=== PATIENT | female | born 1980 ===

== ENCOUNTER → 2021-07-22 14:33 | Outpatient (BNVA) | payer MEDICARE, MEDICAID, SELFPAY | PROVIDERS: PCP Physician Assistant; Visit Provider Nurse Practitioner Family | DX: Q79.60 Ehlers-Danlos syndrome, unspecified (principal); F11.20 Opioid dependence, uncomplicated; M47.816 Spondylosis without myelopathy or radiculopathy, lumbar region; M46.1 Sacroiliitis, not elsewhere classified | CPT/HCPCS: 99202 ==

== ENCOUNTER → 2021-08-02 12:49 | Outpatient (BNVA) | payer MEDICARE, MEDICAID, SELFPAY | PROVIDERS: PCP Physician Assistant; Visit Provider Nurse Practitioner Family | DX: M46.1 Sacroiliitis, not elsewhere classified (principal); M47.816 Spondylosis without myelopathy or radiculopathy, lumbar region; Q79.60 Ehlers-Danlos syndrome, unspecified; Z88.6 Allergy status to analgesic agent | CPT/HCPCS: 99212 ==

== ENCOUNTER → 2021-08-18 10:23 | Outpatient (BNVA) | payer MEDICARE, MEDICAID, SELFPAY | PROVIDERS: PCP Physician Assistant; Visit Provider Nurse Practitioner Family | DX: Z51.81 Encounter for therapeutic drug level monitoring (principal); F11.20 Opioid dependence, uncomplicated; M46.1 Sacroiliitis, not elsewhere classified; M47.816 Spondylosis without myelopathy or radiculopathy, lumbar region; Q79.60 Ehlers-Danlos syndrome, unspecified | CPT/HCPCS: 99212 ==

== ENCOUNTER → 2021-09-16 09:47 | Outpatient (BNVA) | payer MEDICARE, MEDICAID, SELFPAY | PROVIDERS: PCP Physician Assistant; Visit Provider Nurse Practitioner Family ==

== ENCOUNTER → 2021-10-11 15:36 | Outpatient (BNVA) | payer MEDICARE, MEDICAID, SELFPAY | PROVIDERS: PCP Internal Medicine Cardiovascular Disease; Visit Provider Nurse Practitioner Family | DX: Z51.81 Encounter for therapeutic drug level monitoring (principal); F11.20 Opioid dependence, uncomplicated; M46.1 Sacroiliitis, not elsewhere classified; M47.816 Spondylosis without myelopathy or radiculopathy, lumbar region; Q79.60 Ehlers-Danlos syndrome, unspecified | CPT/HCPCS: 99212 ==

== ENCOUNTER → 2021-11-08 10:54 | Outpatient (BNVA) | payer MEDICARE, MEDICAID, SELFPAY | PROVIDERS: PCP Internal Medicine Cardiovascular Disease; Visit Provider Nurse Practitioner Family | DX: M46.1 Sacroiliitis, not elsewhere classified (principal); M47.816 Spondylosis without myelopathy or radiculopathy, lumbar region; Q79.60 Ehlers-Danlos syndrome, unspecified; Z79.891 Long term (current) use of opiate analgesic | CPT/HCPCS: 99212 ==

== ENCOUNTER → 2021-12-06 15:58 | Outpatient (BNVA) | payer MEDICARE, MEDICAID, SELFPAY | PROVIDERS: PCP Internal Medicine Cardiovascular Disease; Visit Provider Nurse Practitioner Family | DX: Z51.81 Encounter for therapeutic drug level monitoring (principal); F11.20 Opioid dependence, uncomplicated | CPT/HCPCS: 99211 ==

== ENCOUNTER → 2022-01-03 15:33 | Outpatient (BNVA) | payer MEDICARE, MEDICAID, SELFPAY | PROVIDERS: PCP Internal Medicine Cardiovascular Disease; Visit Provider Nurse Practitioner Family | DX: Z51.81 Encounter for therapeutic drug level monitoring (principal); F11.20 Opioid dependence, uncomplicated; G43.909 Migraine, unspecified, not intractable, without status migrainosus; M47.816 Spondylosis without myelopathy or radiculopathy, lumbar region; M46.1 Sacroiliitis, not elsewhere classified; R00.2 Palpitations; Q79.60 Ehlers-Danlos syndrome, unspecified | CPT/HCPCS: 99212 ==

== ENCOUNTER → 2022-01-31 14:10 | Outpatient (BNVA) | payer MEDICARE, MEDICAID, SELFPAY | PROVIDERS: PCP Internal Medicine; Visit Provider Nurse Practitioner Family | DX: Z79.891 Long term (current) use of opiate analgesic (principal) | CPT/HCPCS: 99211 ==

== ENCOUNTER → 2022-02-28 13:23 | Outpatient (BNVA) | payer MEDICARE, MEDICAID, SELFPAY | PROVIDERS: PCP Internal Medicine; Visit Provider Nurse Practitioner Family | DX: Z51.81 Encounter for therapeutic drug level monitoring (principal); F11.20 Opioid dependence, uncomplicated; G43.909 Migraine, unspecified, not intractable, without status migrainosus; R00.2 Palpitations; Q79.60 Ehlers-Danlos syndrome, unspecified; M46.1 Sacroiliitis, not elsewhere classified; M47.816 Spondylosis without myelopathy or radiculopathy, lumbar region | CPT/HCPCS: 99212 ==

== ENCOUNTER → 2022-03-28 08:26 | Outpatient (BNVA) | payer MEDICARE, MEDICAID, SELFPAY | PROVIDERS: Visit Provider Nurse Practitioner Family | DX: G43.909 Migraine, unspecified, not intractable, without status migrainosus (principal); Q79.60 Ehlers-Danlos syndrome, unspecified; M47.816 Spondylosis without myelopathy or radiculopathy, lumbar region; M46.1 Sacroiliitis, not elsewhere classified; R00.2 Palpitations; Z79.891 Long term (current) use of opiate analgesic | CPT/HCPCS: 99212 ==

== ENCOUNTER → 2022-04-26 09:34 | Outpatient (BNVA) | payer MEDICARE, MEDICAID, SELFPAY | PROVIDERS: Visit Provider Nurse Practitioner Family | DX: Z51.81 Encounter for therapeutic drug level monitoring (principal); F11.20 Opioid dependence, uncomplicated | CPT/HCPCS: 99211 ==

== ENCOUNTER → 2022-05-26 10:52 | Outpatient (BNVA) | payer MEDICARE, MEDICAID, SELFPAY | PROVIDERS: Visit Provider Nurse Practitioner Family | DX: Z51.81 Encounter for therapeutic drug level monitoring (principal); F11.20 Opioid dependence, uncomplicated; G43.909 Migraine, unspecified, not intractable, without status migrainosus; R00.2 Palpitations; Q79.60 Ehlers-Danlos syndrome, unspecified; M25.511 Pain in right shoulder; M47.816 Spondylosis without myelopathy or radiculopathy, lumbar region; M46.1 Sacroiliitis, not elsewhere classified | CPT/HCPCS: 99212 ==

== ENCOUNTER → 2022-06-23 08:22 | Outpatient (BNVA) | payer MEDICARE, MEDICAID, SELFPAY | PROVIDERS: Visit Provider Nurse Practitioner Family | DX: Z51.81 Encounter for therapeutic drug level monitoring (principal); F11.20 Opioid dependence, uncomplicated | CPT/HCPCS: 99211 ==

== ENCOUNTER → 2022-07-21 08:29 | Outpatient (BNVA) | payer MEDICARE, MEDICAID, SELFPAY | PROVIDERS: Visit Provider Anesthesiology | DX: Z51.81 Encounter for therapeutic drug level monitoring (principal); F11.20 Opioid dependence, uncomplicated; M25.511 Pain in right shoulder; R00.2 Palpitations; M46.1 Sacroiliitis, not elsewhere classified; Q79.60 Ehlers-Danlos syndrome, unspecified; M47.816 Spondylosis without myelopathy or radiculopathy, lumbar region | CPT/HCPCS: 99212 ==

== ENCOUNTER → 2022-08-18 08:25 | Outpatient (BNVA) | payer MEDICARE, MEDICAID, SELFPAY | PROVIDERS: Visit Provider Nurse Practitioner Family | DX: Z13.89 Encounter for screening for other disorder (principal) ==

== ENCOUNTER 2022-08-25 07:00 | Outpatient (RCR) | payer MEDICARE, MEDICAID, SELFPAY ==
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
--- NOTE | 2022-10-11 14:52 | MHC.PT.DC ---
[facility] [place] Office [place] Office [place] Office [address] Liberty Medrano [address] [phone] F: [phone] F: [phone] F: [phone] F: [phone] Physical Therapy Discharge Report Diagnosis: PAIN IN R SHOULDER, SACROILIITIS, DELLA-DANLOS SYNDROME, SPONDYLOSIS Date of Surgery: NA Date of Evaluation: 06/14/22 Date of Discharge: Treatments to Date: 6 Cancellations to Date: 3 No Shows to Date: Discharge Status: Patient Elected to Stop Recommend MD Follow-up Visit Non-compliance Discharge Summary: Pt SEEN FOR INIT EVAL AND 6 VISITS. AT HER LAST VISIT ON 08/25/22 PER ASSESSMENT BY SHASHA FULLER PT,DPT Pt benefited from review of therex, reissued HEP sheets to aide in organization priorotizing strength vs ROM and goals of each. Encouragement to research low impact exercise options such as pool which can aide in ROM/strength/pain reduction as well as aide in goal of weight loss program. Pt educated re: goals of therapy at start of care, appears to have met but also educated potential in obtaining in a review/ ?ortho consult should sx persist and continue to bother her. Pt expressing she was once told only thing they could do is a total shoulder and I dont want surgery which also supports current stalled progress therapy. Pt encouraged to discuss therapy outcomes with referring provider at next session and discuss potential benefits in revisiting ortho. She reports she is able to complete ADLS/IADLS with good ability and does receive relief with use of current pain medications which are prescribed to her. We also discussed use of ice prn to ease sx in R shoulder. She expressed relief with use of theracane and stated she was going to seek out obtaining one for home use. Pt THEN CANCELLED LAST 3 SCHEDULED APPTS. Electronically signed by: ROSEMARY HOPPER PT Please sign and return to therapist. Thank you for your referral.
== END 2022-10-11 14:53 | disposition home or self-care (01) ==
LOC: HO.PTWFD 07:00
PROVIDERS: Visit Provider Nurse Practitioner Family
DX: M25.511 Pain in right shoulder (principal); M46.1 Sacroiliitis, not elsewhere classified; M47.816 Spondylosis without myelopathy or radiculopathy, lumbar region; Q79.60 Ehlers-Danlos syndrome, unspecified
CPT/HCPCS: 97110; 97140; 97162; 97535

== ENCOUNTER → 2022-09-18 08:28 | Outpatient (BNVA) | payer MEDICARE, MEDICAID, SELFPAY | PROVIDERS: Visit Provider Nurse Practitioner Family | DX: M46.1 Sacroiliitis, not elsewhere classified (principal); M53.3 Sacrococcygeal disorders, not elsewhere classified; M47.816 Spondylosis without myelopathy or radiculopathy, lumbar region; G43.909 Migraine, unspecified, not intractable, without status migrainosus; E66.01 Morbid (severe) obesity due to excess calories; Z68.43 Body mass index [BMI] 50.0-59.9, adult; Q79.60 Ehlers-Danlos syndrome, unspecified; Z79.891 Long term (current) use of opiate analgesic | CPT/HCPCS: 99212 ==

== ENCOUNTER → 2022-10-16 13:29 | Outpatient (BNVA) | payer MEDICARE, MEDICAID, SELFPAY | PROVIDERS: Visit Provider Nurse Practitioner Family | DX: Z51.81 Encounter for therapeutic drug level monitoring (principal); F11.20 Opioid dependence, uncomplicated; Q79.60 Ehlers-Danlos syndrome, unspecified; G43.909 Migraine, unspecified, not intractable, without status migrainosus; M47.816 Spondylosis without myelopathy or radiculopathy, lumbar region; M46.1 Sacroiliitis, not elsewhere classified; M53.3 Sacrococcygeal disorders, not elsewhere classified; E66.01 Morbid (severe) obesity due to excess calories; Z68.43 Body mass index [BMI] 50.0-59.9, adult | CPT/HCPCS: 99212 ==

== ENCOUNTER → 2022-11-13 09:32 | Outpatient (BNVA) | payer MEDICARE, MEDICAID, SELFPAY | PROVIDERS: Visit Provider Nurse Practitioner Family | DX: Z51.81 Encounter for therapeutic drug level monitoring (principal); F11.20 Opioid dependence, uncomplicated; M47.816 Spondylosis without myelopathy or radiculopathy, lumbar region; M46.1 Sacroiliitis, not elsewhere classified; M53.3 Sacrococcygeal disorders, not elsewhere classified; Q79.60 Ehlers-Danlos syndrome, unspecified; E66.01 Morbid (severe) obesity due to excess calories; Z68.43 Body mass index [BMI] 50.0-59.9, adult | CPT/HCPCS: 99212 ==

== ENCOUNTER → 2022-12-11 15:27 | Outpatient (BNVA) | payer MEDICARE, MEDICAID, SELFPAY | PROVIDERS: Visit Provider Nurse Practitioner Family | DX: Q79.60 Ehlers-Danlos syndrome, unspecified (principal); M46.1 Sacroiliitis, not elsewhere classified; M47.816 Spondylosis without myelopathy or radiculopathy, lumbar region; M53.3 Sacrococcygeal disorders, not elsewhere classified; E66.01 Morbid (severe) obesity due to excess calories; Z68.43 Body mass index [BMI] 50.0-59.9, adult | CPT/HCPCS: 99212 ==

== ENCOUNTER → 2023-01-03 12:31 | Outpatient (BNVA) | payer MEDICARE, MEDICAID, SELFPAY | PROVIDERS: PCP Internal Medicine; Visit Provider Dietitian, Registered | DX: E66.01 Morbid (severe) obesity due to excess calories (principal); Z68.43 Body mass index [BMI] 50.0-59.9, adult | CPT/HCPCS: 97802 ==

== ENCOUNTER → 2023-01-08 15:39 | Outpatient (BNVA) | payer MEDICARE, MEDICAID, SELFPAY | PROVIDERS: PCP Internal Medicine; Visit Provider Nurse Practitioner Family | DX: M47.816 Spondylosis without myelopathy or radiculopathy, lumbar region (principal); M46.1 Sacroiliitis, not elsewhere classified; M53.3 Sacrococcygeal disorders, not elsewhere classified; Q79.60 Ehlers-Danlos syndrome, unspecified; E66.01 Morbid (severe) obesity due to excess calories; Z68.43 Body mass index [BMI] 50.0-59.9, adult | CPT/HCPCS: 99212 ==

== ENCOUNTER → 2023-02-06 12:57 | Outpatient (BNVA) | payer MEDICARE, MEDICAID, SELFPAY | PROVIDERS: PCP Internal Medicine; Visit Provider Nurse Practitioner Family | DX: M47.816 Spondylosis without myelopathy or radiculopathy, lumbar region (principal); M46.1 Sacroiliitis, not elsewhere classified; M53.3 Sacrococcygeal disorders, not elsewhere classified; E66.01 Morbid (severe) obesity due to excess calories; Z68.43 Body mass index [BMI] 50.0-59.9, adult; Q79.60 Ehlers-Danlos syndrome, unspecified; Z79.891 Long term (current) use of opiate analgesic | CPT/HCPCS: 99212 ==

== ENCOUNTER 2023-02-28 08:19 | Outpatient (AMB) | payer MEDICARE, MEDICAID, SELFPAY ==
--- NOTE | 2023-02-28 08:30 | A.OFFVIS_ITS ---
Intake VS Expanded 02/28/23 08:31 Height 5 ft Weight 275 lb 2.19 oz BMI 53.7 Intake Visit Reasons: Obesity Allergies shellfish derived Allergy (Severe, Verified 02/06/23 13:13) Anaphylaxis Sulfa (Sulfonamide Antibiotics) Allergy (Severe, Verified 02/06/23 13:13) Diarrhea tramadol Allergy (Severe, Verified 02/06/23 13:13) Anaphylaxis sertraline [From Zoloft] Allergy (Unknown, Verified 02/06/23 13:13) unknown valerian root Allergy (Unknown, Uncoded 08/18/22 08:44) unknown HPI Nutrition Presentation Details Pt presents for MNT f/u for obesity. reported challenges: lack of meal planning skipping meals during day and having larger appetite at night including gluten containing foods modifications that worked: meal replacements, carrying water bottle Most Recent Diabetes Results: No Data to Display [facility] Medical History Asthma Robbie-Danlos syndrome Heart palpitations Lumbar spondylosis Migraines Morbid obesity with BMI of 50.0-59.9, adult Sacroiliac joint pain Assessment & Plan Assessment & Plan (1) Morbid obesity with BMI of 50.0-59.9, adult: Comment: Wt 269 lbs in 09/2022, wt 275 lbs in 02/2023 Code(s): E66.01 - Morbid (severe) obesity due to excess calories; Z68.43 - Body mass index [BMI] 50.0-59.9, adult Plan: Est kcal needs as per MSJ: 2176 (40% carb, 30% protein/fat) Est fluid needs as per 25-30 ml/d: 7027-5827 ml/d Est prot per day as per 1 g/kg bw: 122 g Recommend fiber intake : 8-10 g per day and gradually increase to 25-28 g per day for women or as tolerated Recommend sodium intake per day : less than 2000 mg Educated patient on: ( R = reviewed V = verbalizes understanding N/R = needs review N/A = not applicable * Gluten free food options * Food sources of carbohydrate, adequate serving sizes and its role in various health conditions: R * Differences between complex carbohydrates a simple carbohydrates, role of fiber in diet: R * Differences between types of fats and role in diet (mono on saturated fat fatty acids, saturated fatty acids, trans fats): NR * Food sources of sodium in salt and healthy modifications for heart health in kidney health: R * Vitamins and minerals: R * Healthy plate method concept: R * Physical activity: Benefits a precaution: NR * meal modifications when eating out or ordering fast foods: R Patient Instructions: Resume Drink water with meals /snacks instead of sugar containing beverages, - carry water bottle Resume working on reducing on fried foods items (fries, fritters) Follow healthy plate method 5 times a week (chicken/broccoli, sweet potato baked or corn Coding Level of Care Code Nutr Indiv Subseq (91259) Diagnoses Morbid obesity with BMI of 50.0-59.9, adult E66.01; Z68.43
[2023-02-28 08:31] VITALS: BMI 53.7
== END 2023-02-28 08:56 | disposition home or self-care (01) ==
PROVIDERS: PCP Internal Medicine; Referring Provider Internal Medicine; Visit Provider Dietitian, Registered
DX: E66.01 Morbid (severe) obesity due to excess calories (principal); Z68.43 Body mass index [BMI] 50.0-59.9, adult

== ENCOUNTER → 2023-02-28 08:19 | Outpatient (BNVA) | payer MEDICARE, MEDICAID, SELFPAY | PROVIDERS: Visit Provider Dietitian, Registered | DX: E66.01 Morbid (severe) obesity due to excess calories (principal); Z68.43 Body mass index [BMI] 50.0-59.9, adult | CPT/HCPCS: 97803 ==

== ENCOUNTER → 2023-03-13 12:51 | Outpatient (BNVA) | payer MEDICARE, MEDICAID, SELFPAY | PROVIDERS: PCP Internal Medicine; Visit Provider Nurse Practitioner Family | DX: Q79.60 Ehlers-Danlos syndrome, unspecified (principal); M47.816 Spondylosis without myelopathy or radiculopathy, lumbar region; M46.1 Sacroiliitis, not elsewhere classified; M53.3 Sacrococcygeal disorders, not elsewhere classified; E66.01 Morbid (severe) obesity due to excess calories; Z68.43 Body mass index [BMI] 50.0-59.9, adult; Z79.891 Long term (current) use of opiate analgesic | CPT/HCPCS: 99212 ==

== ENCOUNTER 2023-03-13 12:52 | Outpatient (AMB) | payer MEDICARE, MEDICAID, SELFPAY ==
--- NOTE | 2023-03-13 12:52 | MHC.OFFVIS ---
Intake Vital Signs 03/13/23 13:04 Height 5 ft Weight 270 lb 2 oz BMI 52.7 BP 161/92 H Blood Pressure Location Lt radial Position Sitting Pulse 76 Pulse Source Pulse Oximeter Pulse Oximetry (%) 98 Oxygen Delivery Method Room Air Intake Visit Reasons: Pill count Intake Note: Park comes in today for a pill count to hydrocodone-acetaminophen, patient should have 32 tablets and presents with 45 tablets which she last took today 03/13/23 at 5am. Pain today 11/27. Nuclear Plant Instrument Technician Required: No Accompanied by: Self / Same As Patient Allergies shellfish derived Allergy (Severe, Verified 03/13/23 13:05) Anaphylaxis Sulfa (Sulfonamide Antibiotics) Allergy (Severe, Verified 03/13/23 13:05) Diarrhea tramadol Allergy (Severe, Verified 03/13/23 13:05) Anaphylaxis sertraline [From Zoloft] Allergy (Unknown, Verified 03/13/23 13:05) unknown valerian root Allergy (Unknown, Uncoded 08/18/22 08:44) unknown HPI HPI Comments History of Present Illness Details Patient presents today for her pill count. She is supposed to have #32 pills, in her possession has #45 pills. This demonstrates a responsible attitude in regards to the medication regimen. Patient reports adequate analgesia on her regimen of hydrocodone-acetaminophen 5-325 mg twice daily as needed with no noted side effects. Denies any fever, constipation, nausea, sedation, dizziness, or urinary retention. Patient states she has an increased ability to perform activities of daily living, interact socially and be more functional. Patient has upcoming Allergy evaluation on 03/26/23 at 0900 for tramadol allergy. [facility] Medical History Asthma Robbie-Danlos syndrome Heart palpitations Lumbar spondylosis Migraines Morbid obesity with BMI of 50.0-59.9, adult Sacroiliac joint pain Review of Systems Const All systems reviewed & are unremarkable except as noted in HPI and below Physical Exam General: Appears afebrile. Alert and oriented. Mildly anxious. Mood and affect appropriate. Follows and participates in conversation appropriately. Respiratory effort is unlabored. Able to transition from sit to stand unassisted. Ambulates with bilaterally normal heel strike and toe off. Back/Spine/Pelvis Cervical Spine: cervical ROM normal and No Cervical spine tenderness Thoracic/Lumbar Spine: pain with thoraco-lumbar ROM, paraspinal muscle tenderness, No thoracic spinal tenderness and lumbar spinal tenderness Sacroiliac joints: bilaterally tender to palpation Psych Appearance: grossly normal and well kempt Mental Status: mental status grossly normal Speech and movement: Normal speech and movement present and Clear speech present Affect: normal affect and Anxious affect present Attitude: cooperative Thought process: Normal thought process present Thought content: Normal thought content present, suicidality (none), no hallucinations and No Depressive thoughts present Insight: Good insight present (Psych) Judgement: Good judgement present (Psych) Assessment & Plan Assessment & Plan (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, unspecified (2) Lumbar spondylosis: Code(s): M47.816 - Spondylosis without myelopathy or radiculopathy, lumbar region (3) Sacroiliitis: Code(s): M46.1 - Sacroiliitis, not elsewhere classified (4) Sacroiliac joint pain: Code(s): M53.3 - Sacrococcygeal disorders, not elsewhere classified (5) Morbid obesity with BMI of 50.0-59.9, adult: Comment: Wt 269 lbs in 09/2022, wt 275 lbs in 02/2023 Code(s): E66.01 - Morbid (severe) obesity due to excess calories; Z68.43 - Body mass index [BMI] 50.0-59.9, adult Plan Patient has shown accountability for her medication regimen and the pill count was accurate. There is no evidence of misuse, abuse or diversion at this time. [employer] reviewed. Will send in a prescription for hydrocodone-acetaminophen 5-325 mg BID prn with advanced date 03/30/23. Continue daily physical activity, adequate hydration, weight loss and continuing home exercise program. Patient has upcoming Allergy testing for tramadol allergy on 03/26/23. All questions were answered and the patient is in agreement with the plan. Will follow up in 4 weeks for a pill count or sooner as needed. Medications: Refilled hydrocodone-acetaminophen 5-325 mg Partial Fill only upon patient request. 1 tab PO BID PRN 60 tabs 0RF pain 30 days M46.1 - Sacroiliitis, not elsewhere classified, M47.816 - Spondylosis without myelopathy or radiculopathy, lumbar region, Q79.60 - Robbie-Danlos syndrome, unspecified Coding Level of Care Code Est Pt Level 4 (40482) Diagnoses Robbie-Danlos syndrome Q79.60 Lumbar spondylosis M47.816 Sacroiliitis M46.1 Sacroiliac joint pain M53.3 Morbid obesity with BMI of 50.0-59.9, adult E66.01; Z68.43
[2023-03-13 13:04] VITALS: BP 161/92; PULSE 76; O2SAT 98; BMI 52.7
== END 2023-03-13 13:14 | disposition home or self-care (01) ==
PROVIDERS: PCP Internal Medicine; Visit Provider Nurse Practitioner Family
DX: Q79.60 Ehlers-Danlos syndrome, unspecified (principal); M47.816 Spondylosis without myelopathy or radiculopathy, lumbar region; M46.1 Sacroiliitis, not elsewhere classified; M53.3 Sacrococcygeal disorders, not elsewhere classified; E66.01 Morbid (severe) obesity due to excess calories; Z68.43 Body mass index [BMI] 50.0-59.9, adult
CPT/HCPCS: 99214

== ENCOUNTER 2023-04-09 14:14 | Outpatient (AMB) | payer MEDICARE, MEDICAID, SELFPAY ==
--- NOTE | 2023-04-09 14:26 | A.OFFVIS_ITS ---
Intake Vital Signs 04/09/23 14:34 Height 5 ft Weight 270 lb BMI 52.7 BP 170/83 H Blood Pressure Location Lt brachial Position Sitting Pulse 80 Pulse Source Pulse Oximeter Pulse Oximetry (%) 97 Oxygen Delivery Method Room Air Intake Visit Reasons: Pill count Intake Note: Park comes in today for a pill count to hydrocodone-acetaminophen. Patient sh ould have 38 tablets and presents with 53 tablets which she last took today 04/09/23 at 6am. Pain today 8/10. Equipment Sales Specialist Required: No Accompanied by: Self / Same As Patient Allergies shellfish derived Allergy (Severe, Verified 04/09/23 14:36) Anaphylaxis Sulfa (Sulfonamide Antibiotics) Allergy (Severe, Verified 04/09/23 14:36) Diarrhea sertraline [From Zoloft] Allergy (Unknown, Verified 04/09/23 14:36) unknown valerian root Allergy (Unknown, Uncoded 08/18/22 08:44) unknown HPI HPI Comments History of Present Illness Details Patient presents today for her pill count. She is supposed to have #38 pills, in her possession has #53 pills. This demonstrates a responsible attitude in regards to the medication regimen. Patient reports mild to moderate analgesia on her regimen of hydrocodone-acetaminophen 5-325 mg twice daily as needed with no noted side effects. Denies any fever, constipation, nausea, sedation, dizziness, or urinary retention. Patient reports she has tried to avoid taking medication due to drowsiness with Vicodin while undergoing recent multiple medical appointments for her daughter. Patient recently underwent Allergy evaluation on 03/26/23 for Tramadol allergy and had negative oral challenge to Tramadol per recent evaluation report. Patient reports she is eager to restart this medication as this has worked well in the past for her, taking it TID prn. She is aware of potential side effects and precautions. Pain is rated at 8/10 today due to increase pain in her bilateral SIJ, hips and right shoulder areas. Denies any recent cough, cold, infection, fever or other significant changes in medical history since last office visit. [facility] Medical History Asthma Robbie-Danlos syndrome Heart palpitations Lumbar spondylosis Migraines Morbid obesity with BMI of 50.0-59.9, adult Sacroiliac joint pain Review of Systems Const All systems reviewed & are unremarkable except as noted in HPI and below Physical Exam Vital Signs: Last Vital Signs Pulse 80 04/09/23 14:34 BP 170/83 H 04/09/23 14:34 Pulse Ox 97 04/09/23 14:34 Oxygen Delivery Method Room Air 04/09/23 14:34 BMI result Body Mass Index 52.7 General: Appears afebrile. Alert and oriented. Mood and affect appropriate. Follows and participates in conversation appropriately. Respiratory effort is unlabored. Able to transition from sit to stand unassisted. Ambulates with bilaterally normal heel strike and toe off. Back/Spine/Pelvis Cervical Spine: cervical ROM normal and No Cervical spine tenderness Thoracic/Lumbar Spine: pain with thoraco-lumbar ROM, paraspinal muscle tenderness, No thoracic spinal tenderness and lumbar spinal tenderness Sacroiliac joints: bilaterally tender to palpation Extrem General: Yes full ROM, Yes capillary refill normal, Yes no clubbing, cyanosis or edema and Yes no calf tenderness Right upper extremity: shoulder/upper arm Details: normal to inspection, tenderness (anterior aspect of shoulder. Full ROM.) and normal ROM; no swelling, no ecchymosis and no crepitus Right lower extremity: hip/thigh (+Sundeep, +Rafael's. TTP in SIJ and lateral hip.) Left lower extremity: hip/thigh (+Sundeep, +Rafael's. TTP in SIJ and lateral hip.) Psych Appearance: grossly normal Mental Status: mental status grossly normal Speech and movement: Normal speech and movement present Affect: normal affect Attitude: cooperative Thought process: Normal thought process present Thought content: Normal thought content present, suicidality (none), no hallucinations and No Depressive thoughts present Insight: Good insight present (Psych) Judgement: Good judgement present (Psych) Results Reviewed Results Reviewed: No imaging or reports available for review. Assessment & Plan Assessment & Plan (1) Lumbar spondylosis: Code(s): M47.816 - Spondylosis without myelopathy or radiculopathy, lumbar region (2) Robbie-Danlos syndrome: Code(s): Q79.60 - Robbie-Danlos syndrome, unspecified (3) Sacroiliac joint pain: Code(s): M53.3 - Sacrococcygeal disorders, not elsewhere classified (4) Morbid obesity with BMI of 50.0-59.9, adult: Comment: Wt 269 lbs in 09/2022, wt 275 lbs in 02/2023 Code(s): E66.01 - Morbid (severe) obesity due to excess calories; Z68.43 - Body mass index [BMI] 50.0-59.9, adult (5) Right shoulder pain: Code(s): M25.511 - Pain in right shoulder Plan Patient has shown accountability for her medication regimen and the pill count was accurate. There is no evidence of misuse, abuse or diversion at this time. [employer] reviewed. Patient recently underwent Allergy evaluation on 03/26/23 for?Tramadol allergy and had negative oral challenge to Tramadol per recent evaluation report.? Hydrocodone-acetamoniphen #53 pills were destroyed in presence of 2 staff members per Opioid Program Policy. Will send in a prescription for Tramadol 50 mg TID prn today, with mild increase in daily MME/day given average pain levels rated at 8/10 for the past 2 weeks and 7-8/10 for past month. Continue daily physical activity, adequate hydration, weight loss and continuing home exercise program. All questions were answered and the patient is in agreement with the plan. Will follow up in 4 weeks for a pill count or sooner as needed. Medications: New tramadol 50 mg PO TID PRN 90 tabs 0RF pain M47.816 - Spondylosis without myelopathy or radiculopathy, lumbar region, M53.3 - Sacrococcygeal disorders, not elsewhere classified, Q79.60 - Robbie-Danlos syndrome, unspecified Discontinued hydrocodone-acetaminophen 5-325 mg Partial Fill only upon patient request. Discontinued Reason: Patient Completed Course 1 tab PO BID 30 days PRN 60 tabs 0RF pain M46.1 - Sacroiliitis, not elsewhere classified, M47.816 - Spondylosis without myelopathy or radiculopathy, lumbar region, Q79.60 - Robbie- Danlos syndrome, unspecified Coding Level of Care Code Est Pt Level 4 (76303) Diagnoses Lumbar spondylosis M47.816 Robbie-Danlos syndrome Q79.60 Sacroiliac joint pain M53.3 Morbid obesity with BMI of 50.0-59.9, adult E66.01; Z68.43 Right shoulder pain M25.511
[2023-04-09 14:34] VITALS: BP 170/83; PULSE 80; O2SAT 97; BMI 52.7
== END 2023-04-09 14:45 | disposition home or self-care (01) ==
PROVIDERS: PCP Internal Medicine; Visit Provider Nurse Practitioner Family
DX: M47.816 Spondylosis without myelopathy or radiculopathy, lumbar region (principal); Q79.60 Ehlers-Danlos syndrome, unspecified; M53.3 Sacrococcygeal disorders, not elsewhere classified; E66.01 Morbid (severe) obesity due to excess calories; Z68.43 Body mass index [BMI] 50.0-59.9, adult; M25.511 Pain in right shoulder
CPT/HCPCS: 99214

== ENCOUNTER → 2023-04-09 14:14 | Outpatient (BNVA) | payer MEDICARE, MEDICAID, SELFPAY | PROVIDERS: PCP Internal Medicine; Visit Provider Nurse Practitioner Family | DX: M47.816 Spondylosis without myelopathy or radiculopathy, lumbar region (principal); M25.511 Pain in right shoulder; M53.3 Sacrococcygeal disorders, not elsewhere classified; Q79.60 Ehlers-Danlos syndrome, unspecified; E66.01 Morbid (severe) obesity due to excess calories; Z68.43 Body mass index [BMI] 50.0-59.9, adult | CPT/HCPCS: 99212 ==

== ENCOUNTER 2023-05-07 13:08 | Outpatient (AMB) | payer MEDICARE, MEDICAID, SELFPAY ==
--- NOTE | 2023-05-07 13:10 | A.OFFVIS_ITS ---
Intake Vital Signs 05/07/23 13:21 Height 5 ft Weight 263 lb 6 oz BMI 51.4 BP 137/88 Blood Pressure Location Lt brachial Position Sitting Pulse 82 Pulse Source Pulse Oximeter Pulse Oximetry (%) 97 Oxygen Delivery Method Room Air Intake Visit Reasons: Pill count Intake Note: Park comes in today for a pill count to tramadol, patient should have 3 ta blets and presents with 9 tablets which she last took today 05/07/23 at 5am. Pain today 02/26 Records Coordinator Required: No Accompanied by: Self / Same As Patient Allergies shellfish derived Allergy (Severe, Verified 05/07/23 13:22) Anaphylaxis Sulfa (Sulfonamide Antibiotics) Allergy (Severe, Verified 05/07/23 13:22) Diarrhea sertraline [From Zoloft] Allergy (Unknown, Verified 05/07/23 13:22) unknown valerian root Allergy (Unknown, Uncoded 08/18/22 08:44) unknown HPI HPI Comments History of Present Illness Details Patient presents today for her pill count. She is supposed to have #3 pills, in her possession has #9 pills. This demonstrates a responsible attitude in regards to the medication regimen. Patient reports adequate analgesia on her regimen of tramadol 50 mg TID prn daily as needed with no noted side effects. Patient reports she has returned to college and has been doing perquisite for Nursing Program. She reports recent weight loss with increased ambulation and stair walking in college. Denies any fever, constipation, nausea, sedation, dizziness, or urinary retention. [facility] Medical History Heart palpitations Asthma Morbid obesity with BMI of 50.0-59.9, adult Sacroiliac joint pain Migraines Robbie-Danlos syndrome Lumbar spondylosis Review of Systems Const All systems reviewed & are unremarkable except as noted in HPI and below Physical Exam General: Appears afebrile. Alert and oriented. Mood and affect appropriate. Follows and participates in conversation appropriately. Respiratory effort is unlabored. Able to transition from sit to stand unassisted. Ambulates with bilaterally normal heel strike and toe off. Back/Spine/Pelvis Cervical Spine: cervical ROM normal and No Cervical spine tenderness Thoracic/Lumbar Spine: pain with thoraco-lumbar ROM, paraspinal muscle tenderness, No thoracic spinal tenderness and lumbar spinal tenderness Sacroiliac joints: bilaterally tender to palpation Extrem General: Yes capillary refill normal, Yes no clubbing, cyanosis or edema and Yes no calf tenderness Right lower extremity: hip/thigh (+Rafael's. TTP in SIJ and lateral hip, no groin pain.) Left lower extremity: hip/thigh (+Rafael's. TTP in SIJ and lateral hip, no groin pain) Psych Appearance: grossly normal Mental Status: mental status grossly normal Speech and movement: Normal speech and movement present Affect: normal affect Attitude: cooperative Thought process: Normal thought process present Thought content: Normal thought content present, suicidality (none), no hallucinations and No Depressive thoughts present Insight: Good insight present (Psych) Judgement: Good judgement present (Psych) Results Reviewed Results Reviewed: No imaging or reports available for review. Assessment & Plan Assessment & Plan (1) Lumbar spondylosis: Code(s): M47.816 - Spondylosis without myelopathy or radiculopathy, lumbar region (2) Robbie-Danlos syndrome: Code(s): Q79.60 - Robbie-Danlos syndrome, unspecified (3) Sacroiliac joint pain: Code(s): M53.3 - Sacrococcygeal disorders, not elsewhere classified (4) Morbid obesity with BMI of 50.0-59.9, adult: Comment: Wt 269 lbs in 09/2022, 275 lbs in 02/2023, 263 lbs 04/2023 Code(s): E66.01 - Morbid (severe) obesity due to excess calories; Z68.43 - Body mass index [BMI] 50.0-59.9, adult (5) Sacroiliitis: Code(s): M46.1 - Sacroiliitis, not elsewhere classified Plan Patient has shown accountability for her medication regimen and the pill count was accurate. There is no evidence of misuse, abuse or diversion at this time. [employer] reviewed. Will send in a prescription for Tramadol 50 mg TID prn with advanced date of 05/10/23. Continue daily physical activity, adequate hydration, weight loss and continuing home exercise program. Patient was praised for recent weight loss and encouraged to continue her weight loss journey. All questions were answered and the patient is in agreement with the plan. Will follow up in 4 weeks for a pill count or sooner as needed. Medications: Changed From tramadol 50 mg PO TID PRN 90 tabs 0RF pain M47.816 - Spondylosis without myelopathy or radiculopathy, lumbar region, M53.3 - Sacrococcygeal disorders, not elsewhere classified, Q79.60 - Robbie-Danlos syndrome, unspecified To tramadol Partial Fill upon patient request. 50 mg PO TID 30 days PRN 90 tabs 1RF pain M47.816 - Spondylosis without myelopathy or radiculopathy, lumbar region, M53.3 - Sacrococcygeal disorders, not elsewhere classified, Q79.60 - Robbie-Danlos syndrome, unspecified Coding Level of Care Code Est Pt Level 4 (32458) Diagnoses Lumbar spondylosis M47.816 Robbie-Danlos syndrome Q79.60 Sacroiliac joint pain M53.3 Morbid obesity with BMI of 50.0-59.9, adult E66.01; Z68.43 Sacroiliitis M46.1
[2023-05-07 13:21] VITALS: BP 137/88; PULSE 82; O2SAT 97; BMI 51.4
== END 2023-05-07 13:35 | disposition home or self-care (01) ==
PROVIDERS: PCP Internal Medicine; Visit Provider Nurse Practitioner Family
DX: M47.816 Spondylosis without myelopathy or radiculopathy, lumbar region (principal); Q79.60 Ehlers-Danlos syndrome, unspecified; M53.3 Sacrococcygeal disorders, not elsewhere classified; Z79.891 Long term (current) use of opiate analgesic; E66.01 Morbid (severe) obesity due to excess calories; Z68.43 Body mass index [BMI] 50.0-59.9, adult; M46.1 Sacroiliitis, not elsewhere classified
CPT/HCPCS: 99214

== ENCOUNTER → 2023-05-07 13:08 | Outpatient (BNVA) | payer MEDICARE, MEDICAID, SELFPAY | PROVIDERS: PCP Internal Medicine; Visit Provider Nurse Practitioner Family | DX: Z51.81 Encounter for therapeutic drug level monitoring (principal); F11.20 Opioid dependence, uncomplicated; M47.816 Spondylosis without myelopathy or radiculopathy, lumbar region; M53.3 Sacrococcygeal disorders, not elsewhere classified; M46.1 Sacroiliitis, not elsewhere classified; E66.01 Morbid (severe) obesity due to excess calories; Q79.60 Ehlers-Danlos syndrome, unspecified; Z68.43 Body mass index [BMI] 50.0-59.9, adult | CPT/HCPCS: 99212 ==

== ENCOUNTER → 2023-06-29 13:42 | Outpatient (BNVA) | payer MEDICARE, MEDICAID, SELFPAY | PROVIDERS: PCP Internal Medicine; Visit Provider Nurse Practitioner Family ==

== ENCOUNTER 2023-08-28 10:55 | Outpatient (AMB) | payer MEDICARE, MEDICAID, SELFPAY ==
--- NOTE | 2023-08-28 10:57 | A.OFFVIS_ITS ---
Intake Vital Signs 08/28/23 11:07 Height 5 ft Weight 262 lb 8 oz BMI 51.3 BP 147/78 H Blood Pressure Location Lt brachial Position Sitting Pulse 78 Pulse Source Pulse Oximeter Pulse Oximetry (%) 97 Oxygen Delivery Method Room Air Intake Visit Reasons: Medication Count/ random UDS Intake Note: Park comes in today for a pill count to tramadol, patient should have 33 tablets and presents with 38 tablets which she last took today 08/28/23 at 7am. Pain today 02/26. Patient signed updated opioid contract in office today 08/28/23, signed copy was provided to patient. Parker Required: No Accompanied by: Unknown Allergies shellfish derived Allergy (Severe, Verified 08/28/23 11:07) Anaphylaxis Sulfa (Sulfonamide Antibiotics) Allergy (Severe, Verified 08/28/23 11:07) Diarrhea sertraline [From Zoloft] Allergy (Unknown, Verified 08/28/23 11:07) unknown valerian root Allergy (Unknown, Uncoded 08/18/22 08:44) unknown HPI HPI Comments History of Present Illness Details Patient presents today for her pill count. She is supposed to have #33 pills, in her possession has #38 pills. This demonstrates a responsible attitude in regards to the medication regimen. Patient reports adequate analgesia on her regimen of tramadol 50 mg TID prn daily as needed with no noted side effects. Denies any fever, constipation, nausea, sedation, dizziness, or urinary retention. Patient reports mid to low back pain and left shoulder pain with decreased range of motion due to pain. She reports recent RSV and COVID illnesses 2 weeks ago followed by 2 asthma attacks for which she went for medical treatment at [facility]. She reports history of T12 compression fracture and concerned if this is worsening due to excessive coughing with recent illnesses. Patient is interested to restart physical therapy for her pain generators. [facility] Medical History Heart palpitations Asthma Morbid obesity with BMI of 50.0-59.9, adult Sacroiliac joint pain Migraines Robbie-Danlos syndrome Lumbar spondylosis Review of Systems Const All systems reviewed & are unremarkable except as noted in HPI and below Reports as per HPI, Denies body aches, Denies chills, Reports difficulty sleeping, Reports fatigue, Denies fever(s), Denies frequent falls, Reports headache(s), Denies malaise, Denies snoring and Denies weakness ENT Reports headache(s) and Reports neck pain Card Denies dyspnea on exertion Resp Denies cough, Denies dyspnea on exertion and Denies snoring Musc Reports as per HPI, Reports back pain, Denies myalgias, Reports arthralgias, Denies joint swelling, Reports neck pain, Denies numbness, Denies radiating pain into limb, Reports stiffness and Denies tingling Neuro Denies frequent falls, Reports headache(s), Denies numbness, Denies tingling and Denies weakness Endo Reports fatigue Physical Exam General: Appears afebrile. Alert and oriented. Mood and affect appropriate. Follows and participates in conversation appropriately. Respiratory effort is unlabored. Able to transition from sit to stand unassisted. Ambulates with bilaterally normal heel strike and toe off. Back/Spine/Pelvis Cervical Spine: cervical ROM normal and No Cervical spine tenderness Thoracic/Lumbar Spine: pain with thoraco-lumbar ROM, paraspinal muscle tenderness, No thoracic spinal tenderness and lumbar spinal tenderness Sacroiliac joints: bilaterally tender to palpation Extrem General: Yes capillary refill normal, Yes no clubbing, cyanosis or edema and Yes no calf tenderness Right lower extremity: hip/thigh (+Rafael's. TTP in SIJ and lateral hip, no groin pain.) Left lower extremity: hip/thigh (+Rafael's. TTP in SIJ and lateral hip, no groin pain) Psych Appearance: grossly normal Mental Status: mental status grossly normal Speech and movement: Normal speech and movement present Affect: normal affect Attitude: cooperative Thought process: Normal thought process present Thought content: Normal thought content present, suicidality (none), no halluc inations and No Depressive thoughts present Insight: Good insight present (Psych) Judgement: Good judgement present (Psych) Results Reviewed Results Reviewed: No imaging or reports available for review. Assessment & Plan Assessment & Plan (1) Lumbar spondylosis: Code(s): M47.816 - Spondylosis without myelopathy or radiculopathy, lumbar region (2) Robbie-Danlos syndrome: Code(s): Q79.60 - Robbie-Danlos syndrome, unspecified (3) Sacroiliac joint pain: Code(s): M53.3 - Sacrococcygeal disorders, not elsewhere classified (4) Sacroiliitis: Code(s): M46.1 - Sacroiliitis, not elsewhere classified (5) Thoracic back pain: Code(s): M54.6 - Pain in thoracic spine (6) Right shoulder pain: Code(s): M25.511 - Pain in right shoulder Plan Patient has shown accountability for her medication regimen and the pill count was accurate. There is no evidence of misuse, abuse or diversion at this time. [employer] reviewed. Prescription sent for Tramadol 50 mg TID prn with an advanced date of 09/08/23. Continue daily physical activity, adequate hydration, weight loss and home exercise program. Referral to formal physical therapy sent per patient request. Will obtain thoracic, lumbar and right shoulder xray to assess for degenerative changes and degree of arthritis. All questions were answered and the patient is in agreement with the plan. Follow up in 4 weeks for a pill count or sooner as needed. Orders: Orders XR lumbar spine 4V min Today M47.816 - Spondylosis without myelopathy or radiculopathy, lumbar region, M53.3 - Sacrococcygeal disorders, not elsewhere classified, M54.6 - Pain in thoracic spine PT Evaluation and Treatment Today M25.511 - Pain in right shoulder, M47.816 - Spondylosis without myelopathy or radiculopathy, lumbar region, M53.3 - Sacrococcygeal disorders, not elsewhere classified, M54.6 - Pain in thoracic spine, Q79.60 - Robbie-Danlos syndrome, unspecified XR thoracic spine 3V Today M47.816 - Spondylosis without myelopathy or radiculopathy, lumbar region, M54.6 - Pain in thoracic spine XR shoulder RT min 2V Today M25.511 - Pain in right shoulder Medications: Refilled tramadol Partial Fill upon patient request. 50 mg PO TID 30 days PRN 90 tabs 1RF pain M47.816 - Spondylosis without myelopathy or radiculopathy, lumbar region, M53.3 - Sacrococcygeal disorders, not elsewhere classified, Q79.60 - Robbie-Danlos syndrome, unspecified Coding Level of Care Code Est Pt Level 4 (75500) Diagnoses Lumbar spondylosis M47.816 Robbie-Danlos syndrome Q79.60 Sacroiliac joint pain M53.3 Sacroiliitis M46.1 Thoracic back pain M54.6 Right shoulder pain M25.511
[2023-08-28 11:07] VITALS: BP 147/78; PULSE 78; O2SAT 97; BMI 51.3
== END 2023-08-28 11:20 | disposition home or self-care (01) ==
PROVIDERS: PCP Internal Medicine; Visit Provider Nurse Practitioner Family
DX: M47.816 Spondylosis without myelopathy or radiculopathy, lumbar region (principal); Q79.60 Ehlers-Danlos syndrome, unspecified; M53.3 Sacrococcygeal disorders, not elsewhere classified; M46.1 Sacroiliitis, not elsewhere classified; M54.6 Pain in thoracic spine; M25.511 Pain in right shoulder
CPT/HCPCS: 99214

== ENCOUNTER → 2023-08-28 10:55 | Outpatient (BNVA) | payer MEDICARE, MEDICAID, SELFPAY | PROVIDERS: PCP Internal Medicine; Visit Provider Nurse Practitioner Family | DX: Z51.81 Encounter for therapeutic drug level monitoring (principal); F11.20 Opioid dependence, uncomplicated; M47.816 Spondylosis without myelopathy or radiculopathy, lumbar region; M53.3 Sacrococcygeal disorders, not elsewhere classified; M46.1 Sacroiliitis, not elsewhere classified; M54.6 Pain in thoracic spine; M25.511 Pain in right shoulder; Q79.60 Ehlers-Danlos syndrome, unspecified | CPT/HCPCS: 99212 ==

== ENCOUNTER 2023-09-27 10:54 | Outpatient (REF) | payer MEDICARE, MEDICAID, SELFPAY ==
--- NOTE | ~2023-09-27 | XR_ITS ---
EXAMINATION: XR THORACIC SPINE CLINICAL INFORMATION: Pain in thoracic spine. COMPARISON: None available. TECHNIQUE: Frontal, lateral and swimmer's views of the thoracic spine were obtained. FINDINGS: Bony mineralization is normal. There is a mild thoracolumbar levoscoliosis. There are mild T11 and moderate T12 anterior wedge compression fractures. There is Schmorl's node formation at T11-T12 and T12-L1. There is moderate disc space narrowing at T12-L1. The remaining disc spaces are relatively well-maintained. No acute fracture or spondylolisthesis is seen. There is multi-level mild thoracic spondylosis. The posterior elements are intact. The paravertebral soft tissues are unremarkable. XR/XR thoracic spine 3V IMPRESSION: 1. Mild T11 and moderate T12 anterior wedge compression fractures are seen. 2. There is Schmorl's node formation at T11-T12 and T12-L1. 3. There is moderate degenerative disc disease at T12-L1. 4. There is multi-level mild thoracic spondylosis. 5. There is a mild thoracolumbar levoscoliosis. EXAMINATION: XR LUMBOSACRAL SPINE CLINICAL INFORMATION: Lumbar spondylosis without myelopathy or radiculopathy. COMPARISON: None TECHNIQUE: AP, bilateral oblique and lateral views of the lumbar spine and lateral view of the lumbosacral junction. FINDINGS: Vertebral body heights are normal. At L1-L2, there is Schmorl's node formation. At L5-S1, there is moderately severe disc space narrowing. There are small limbus vertebra seen at the anterior aspects of the L4-L5 and L5-S1 disc spaces. The posterior elements are intact. The paravertebral soft tissues are unremarkable. IMPRESSION: 1. There is moderately severe degenerative disc disease at L5-S1. 2. There is Schmorl's node formation at L1-L2.
--- NOTE | ~2023-09-27 | XR_ITS ---
EXAMINATION: XR SHOULDER, RIGHT CLINICAL INFORMATION: Pain. COMPARISON: None available. TECHNIQUE: AP external rotation, Grashey, scapular Y, and axillary views of the right shoulder. FINDINGS: Bony alignment and mineralization are normal. The glenohumeral joint is intact and shows moderately severe osteoarthritic change. The acromioclavicular and coracoclavicular intervals are normal. No fracture or dislocation is seen. There is mild calcific tendinitis at the right rotator cuff insertion. No foreign body is seen. There is no right pneumothorax. XR/XR shoulder RT min 2V IMPRESSION: 1. There is moderately severe osteoarthritic change of the right glenohumeral joint. 2. There is mild calcific tendinitis of the right rotator cuff insertion.
--- NOTE | ~2023-09-27 | XR_ITS ---
EXAMINATION: XR THORACIC SPINE CLINICAL INFORMATION: Pain in thoracic spine. COMPARISON: None available. TECHNIQUE: Frontal, lateral and swimmer's views of the thoracic spine were obtained. FINDINGS: Bony mineralization is normal. There is a mild thoracolumbar levoscoliosis. There are mild T11 and moderate T12 anterior wedge compression fractures. There is Schmorl's node formation at T11-T12 and T12-L1. There is moderate disc space narrowing at T12-L1. The remaining disc spaces are relatively well-maintained. No acute fracture or spondylolisthesis is seen. There is multi-level mild thoracic spondylosis. The posterior elements are intact. The paravertebral soft tissues are unremarkable. XR/XR lumbar spine 4V min IMPRESSION: 1. Mild T11 and moderate T12 anterior wedge compression fractures are seen. 2. There is Schmorl's node formation at T11-T12 and T12-L1. 3. There is moderate degenerative disc disease at T12-L1. 4. There is multi-level mild thoracic spondylosis. 5. There is a mild thoracolumbar levoscoliosis. EXAMINATION: XR LUMBOSACRAL SPINE CLINICAL INFORMATION: Lumbar spondylosis without myelopathy or radiculopathy. COMPARISON: None TECHNIQUE: AP, bilateral oblique and lateral views of the lumbar spine and lateral view of the lumbosacral junction. FINDINGS: Vertebral body heights are normal. At L1-L2, there is Schmorl's node formation. At L5-S1, there is moderately severe disc space narrowing. There are small limbus vertebra seen at the anterior aspects of the L4-L5 and L5-S1 disc spaces. The posterior elements are intact. The paravertebral soft tissues are unremarkable. IMPRESSION: 1. There is moderately severe degenerative disc disease at L5-S1. 2. There is Schmorl's node formation at L1-L2.
== END 2023-09-27 10:55 | disposition home or self-care (01) ==
LOC: HO.XRAY 10:54
PROVIDERS: PCP Internal Medicine; Visit Provider Nurse Practitioner Family
DX: M25.511 Pain in right shoulder (principal); M47.816 Spondylosis without myelopathy or radiculopathy, lumbar region; M53.3 Sacrococcygeal disorders, not elsewhere classified; M54.6 Pain in thoracic spine
CPT/HCPCS: 72072; 72110; 73030

== ENCOUNTER → 2023-10-23 11:05 | Outpatient (BNVA) | payer MEDICARE, MEDICAID, SELFPAY | PROVIDERS: PCP Internal Medicine; Visit Provider Nurse Practitioner Family | DX: Z51.81 Encounter for therapeutic drug level monitoring (principal); F11.20 Opioid dependence, uncomplicated | CPT/HCPCS: 99211 ==

== ENCOUNTER 2023-10-25 11:29 | Outpatient (AMB) | payer MEDICARE, MEDICAID, SELFPAY ==
--- NOTE | 2023-10-25 11:30 | MHC.OFFVIS ---
Intake Vital Signs 10/25/23 11:30 Height 5 ft Intake Visit Reasons: X-ray Results Nutrition Assistant Required: No Allergies shellfish derived Allergy (Severe, Verified 10/25/23 11:31) Anaphylaxis Sulfa (Sulfonamide Antibiotics) Allergy (Severe, Verified 10/25/23 11:31) Diarrhea sertraline [From Zoloft] Allergy (Unknown, Verified 10/25/23 11:31) unknown valerian root Allergy (Unknown, Uncoded 08/18/22 08:44) unknown HPI HPI Comments History of Present Illness Details Patient presents today via telehealth encounter to discuss recent right shoulder and thoracolumbar xray results. Patient reports she had to reschedule thoracic MRI at [facility]. She reports increasing lower back pain with radiation into her lower extremities. Reports intermittent numbness and tingling. Pain increases with walking, bending, flexing forward and most movements which limit her daily functioning, ADLs, work and caring for her family. Patient completed several courses of PT and HEP for back and SIJ pain and currently in PT for shoulder pain. The back pain is function and mobility limiting and has been resistant to conservative treatments. She has difficulty using her right arm due to pain. She is right hand dominant. Denies any bladder or bowel dysfunction or saddle anesthesia. PRIOR: Patient presents today for her pill count. She is supposed to have #33 pills, in her possession has #38 pills. This demonstrates a responsible attitude in regards to the medication regimen. Patient reports adequate analgesia on her regimen of tramadol 50 mg TID prn daily as needed with no noted side effects. Denies any fever, constipation, nausea, sedation, dizziness, or urinary retention. Patient reports mid to low back pain and left shoulder pain with decreased range of motion due to pain. She reports recent RSV and COVID illnesses 2 weeks ago followed by 2 asthma attacks for which she went for medical treatment at [facility]. She reports history of T12 compression fracture and concerned if this is worsening due to excessive coughing with recent illnesses. Patient is interested to restart physical therapy for her pain generators. [facility] Medical History Heart palpitations Asthma Morbid obesity with BMI of 50.0-59.9, adult Sacroiliac joint pain Migraines Robbie-Danlos syndrome Lumbar spondylosis Review of Systems Const All systems reviewed & are unremarkable except as noted in HPI and below ENT Reports Normal hearing present Neuro Reports Normal hearing present and Denies confusion Psych Denies confusion Physical Exam Const General: cooperative, alert and awake; No confusion Orientation/consciousness: patient oriented x3 and No confusion Resp Effort & Inspection: able to speak in complete sentences, no audible wheezes and no cough Neuro General: patient oriented x3 and No confusion Cranial nerves: Yes Normal hearing present Cognition (Neuro): normal cognition Psych Mental Status: mental status grossly normal Speech and movement: Clear speech present Affect: normal affect Attitude: cooperative Thought process: Normal thought process present Thought content: Normal thought content present and No Depressive thoughts present Insight: Good insight present (Psych) Judgement: Good judgement present (Psych) Results Reviewed Results Reviewed: XR THORACIC SPINE 09/27/23 CLINICAL INFORMATION: Pain in thoracic spine. FINDINGS: Bony mineralization is normal. There is a mild thoracolumbar levoscoliosis. There are mild T11 and moderate T12 anterior wedge compression fractures. There is Schmorl's node formation at T11-T12 and T12-L1. There is moderate disc space narrowing at T12-L1. The remaining disc spaces are relatively well-maintained. No acute fracture or spondylolisthesis is seen. There is multi-level mild thoracic spondylosis. The posterior elements are intact. The paravertebral soft tissues are unremarkable. IMPRESSION: 1. Mild T11 and moderate T12 anterior wedge compression fractures are seen. 2. There is Schmorl's node formation at T11-T12 and T12-L1. 3. There is moderate degenerative disc disease at T12-L1. 4. There is multi-level mild thoracic spondylosis. 5. There is a mild thoracolumbar levoscoliosis. XR LUMBOSACRAL SPINE 09/27/23 CLINICAL INFORMATION: Lumbar spondylosis without myelopathy or radiculopathy. FINDINGS: Vertebral body heights are normal. At L1-L2, there is Schmorl's node formation. At L5-S1, there is moderately severe disc space narrowing. There are small limbus vertebra seen at the anterior aspects of the L4-L5 and L5-S1 disc spaces. The posterior elements are intact. The paravertebral soft tissues are unremarkable. IMPRESSION: 1. There is moderately severe degenerative disc disease at L5-S1. 2. There is Schmorl's node formation at L1-L2. XR SHOULDER, RIGHT 09/27/23 FINDINGS: Bony alignment and mineralization are normal. The glenohumeral joint is intact and shows moderately severe osteoarthritic change. The acromioclavicular and coracoclavicular intervals are normal. No fracture or dislocation is seen. There is mild calcific tendinitis at the right rotator cuff insertion. No foreign body is seen. There is no right pneumothorax. IMPRESSION: 1. There is moderately severe osteoarthritic change of the right glenohumeral joint. 2. There is mild calcific tendinitis of the right rotator cuff insertion. Assessment & Plan Assessment & Plan (1) Right shoulder pain: Code(s): M25.511 - Pain in right shoulder (2) Arthritis of right glenohumeral joint: Code(s): M19.011 - Primary osteoarthritis, right shoulder (3) Robbie-Danlos syndrome: Code(s): Q79.60 - Robbie-Danlos syndrome, unspecified (4) Thoracic back pain: Code(s): M54.6 - Pain in thoracic spine (5) Vertebrogenic low back pain: Code(s): M54.51 - Vertebrogenic low back pain (6) Sacroiliac joint pain: Code(s): M53.3 - Sacrococcygeal disorders, not elsewhere classified Plan Shoulder and thoracolumbar xray studies were reviewed with patient today. Pending thoracic spine MRI at [facility]. We will add lumbar spine MRI to follow up on recent xray studies and progressively worsening and intractable back pain. Patient will return to the clinic to discuss results of the MRI findings when it is done and consider interventional therapy as indicated.? Orthopedic referral for moderately severe osteoarthritis of the right glenohumeral joint. We discussed therapeutic injections. All questions and concerns have been answered and patient agreed with the plan. Follow up for MRI results and sooner as needed. I hereby testify that I spent 13 minutes in conversation with this patient as well as with planning and coordinating care for this patient and organizing this note. Orders: Orders MR lumbar spine wo con Today M54.16 - Radiculopathy, lumbar region, M54.51 - Vertebrogenic low back pain, M54.6 - Pain in thoracic spine Referrals Orthopedics Referral M19.011 - Primary osteoarthritis, right shoulder, M25.511 - Pain in right shoulder, Q79.60 - Robbie-Danlos syndrome, unspecified Telehealth Telehealth Location of provider rendering services: practice address Location of patient: address on file Patient Identification confirmed using: Name, : Yes Telehealth method: voice only Patient verbally consented to treatment: Yes Patient verbally consented to billing insurance company: Yes Patient informed of any privacy concerns related to visit: Yes Minutes spent on Phone/Video with Pt.: 13 Coding Level of Care Code Tele Est Pt Level 3 (60833) Diagnoses Right shoulder pain M25.511 Arthritis of right glenohumeral joint M19.011 Robbie-Danlos syndrome Q79.60 Thoracic back pain M54.6 Vertebrogenic low back pain M54.51 Sacroiliac joint pain M53.3
== END 2023-10-25 11:56 | disposition home or self-care (01) ==
LOC: HO.PMC 11:30
PROVIDERS: PCP Internal Medicine; Visit Provider Nurse Practitioner Family
DX: M25.511 Pain in right shoulder (principal); M19.011 Primary osteoarthritis, right shoulder; Q79.60 Ehlers-Danlos syndrome, unspecified; M54.6 Pain in thoracic spine; M54.51 Vertebrogenic low back pain; M53.3 Sacrococcygeal disorders, not elsewhere classified
CPT/HCPCS: 99442

== ENCOUNTER → 2023-10-25 11:29 | Outpatient (BNVA) | payer MEDICARE, MEDICAID, SELFPAY | PROVIDERS: PCP Internal Medicine; Visit Provider Nurse Practitioner Family ==

== ENCOUNTER 2023-11-15 13:48 | Outpatient (AMB) | payer MEDICARE, MEDICAID, SELFPAY ==
[2023-11-15 14:03] VITALS: BMI 51.2
--- NOTE | 2023-11-15 14:03 | A.OFFVIS_ITS ---
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 Patient reports that she has had pain for quite some time now (about 2009). Hx of right shoulder surgery done at Dr. Corrales. She reports that she has has pain all the time, pain with certain movements like lifting and over the head movements. She reports hx Robbie Danlos Syndrome. She has history of cortisone injections and physical therapy. which has given her mild relief in the past. Allergies Sulfa (Sulfonamide Antibiotics) Allergy (Severe, Verified 10/25/23 11:31) Diarrhea sertraline [From Zoloft] Allergy (Unknown, Verified 10/25/23 11:31) unknown valerian root Allergy (Unknown, Uncoded 08/18/22 08:44) unknown HPI SOLUTIONS SALES EXECUTIVE- RT Shoulder OA HPI Details This ia a 43 yo with Ehler Danlos and a history of right shoulder surgery. She has known right shoulder OA. She is not sure why she is here today as she knows surgery is not really an option. She states she tolerates the pain but it is not just her shoulder that hurts. Her shoulder does not currently dislocate. Her external rotation, abduction, overhead motion and lifting are compromised. [facility] Medical History Heart palpitations Asthma Morbid obesity with BMI of 50.0-59.9, adult Sacroiliac joint pain Migraines Robbie-Danlos syndrome Lumbar spondylosis Physical Exam Vital Signs: BMI result Body Mass Index 51.2 Extrem Other: 10 deg of painful external rotation active abduction to 65 Results Reviewed Results Reviewed: I personally reviewed relevant radiographs. Right shoulder OA, severe Assessment & Plan Assessment & Plan (1) Arthritis of right glenohumeral joint: Code(s): M19.011 - Primary osteoarthritis, right shoulder Plan: She has 43 yo RHD F with right shoulder OA. Symptomatic treatment as tolerated. Not a surgical candidate given age and Ehler's Danlos. (2) Robbie-Danlos syndrome: Code(s): Q79.60 - Robbie-Danlos syndrome, unspecified Plan: Contra indication to surgery as this time. Coding Level of Care Code New Pt Level 4 (78653) Diagnoses Arthritis of right glenohumeral joint M19.011 Robbie-Danlos syndrome Q79.60
[2023-11-15 14:11] VITALS: BMI 51.2
== END 2023-11-15 16:00 ==
LOC: HO.HOS 13:48
PROVIDERS: PCP Internal Medicine; Visit Provider Orthopaedic Surgery
DX: M19.011 Primary osteoarthritis, right shoulder (principal); Q79.60 Ehlers-Danlos syndrome, unspecified
CPT/HCPCS: 99204

== ENCOUNTER → 2023-11-15 13:48 | Outpatient (BNVA) | payer MEDICARE, MEDICAID, SELFPAY | PROVIDERS: PCP Internal Medicine; Visit Provider Orthopaedic Surgery | DX: M19.011 Primary osteoarthritis, right shoulder (principal); Q79.60 Ehlers-Danlos syndrome, unspecified | CPT/HCPCS: 99202 ==

== ENCOUNTER 2023-11-23 13:36 | Outpatient (AMB) | payer MEDICARE, MEDICAID, SELFPAY ==
--- NOTE | 2023-11-23 13:37 | A.OFFVIS_ITS ---
Intake Vital Signs 11/23/23 13:47 Height 5 ft Weight 262 lb 4 oz BMI 51.2 BP 149/94 H Blood Pressure Location Rt brachial Position Sitting Pulse 73 Pulse Source Pulse Oximeter Pulse Oximetry (%) 97 Oxygen Delivery Method Room Air Intake Visit Reasons: Medication Count Intake Note: Park comes in today for a pill count to Tramadol, patient should have 39 tablets and presents with 45 tablets which she last took today 11/23/23 at 12pm. Pain today 04/29. 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 She is supposed to have #39 pills, in her possession has #45 pills. This demonstrates a responsible attitude in regards to the medication regimen. Patient reports mild to moderate analgesia on her regimen of tramadol 50 mg TID prn daily as needed with no noted side effects. Patient continues to endorse right shoulder pain with previous right shoulder surgery and OA. She was evaluated by Dr. Salas and was told she was not surgical candidate due to age and Robbie-Danlos syndrome. Patient also suffers from mid and lower back spondylosis, sacroiliac joint and bilateral knee pain. She had mutliple therapeutic injections at previous Pain clinic and reports minimal effect. Patient reports tramadol allows her to be less symptomatic and more functional. She has pending thoracic and lumbar spine MRIs to address her intractable back pain and follow up on anterior wedge compression fractures at T11-T12. Patient reports her MRIs on hold at this time as she recently obtained a new tattoo. Denies any fever, chills, chest pain, shortness of breaths, constipation, nausea, sedation, dizziness, or urinary retention. [facility] Medical History Heart palpitations Asthma Morbid obesity with BMI of 50.0-59.9, adult Sacroiliac joint pain Migraines Robbie-Danlos syndrome Lumbar spondylosis Review of Systems Const All systems reviewed & are unremarkable except as noted in HPI and below Physical Exam Vital Signs: Last Vital Signs Pulse 73 11/23/23 13:47 BP 149/94 H 11/23/23 13:47 Pulse Ox 97 11/23/23 13:47 Oxygen Delivery Method Room Air 11/23/23 13:47 BMI result Body Mass Index 51.2 General: Appears afebrile. Alert and oriented. Mood and affect appropriate. Follows and participates in conversation appropriately. Respiratory effort is unlabored. Able to transition from sit to stand unassisted. Ambulates with bilaterally normal heel strike and toe off. Back/Spine/Pelvis Cervical Spine: cervical ROM normal and No Cervical spine tenderness Thoracic/Lumbar Spine: thoracic and lumbar spine normal to inspection, Lasegue's sign negative, straight leg raise negative bilaterally, pain with thoraco-lumbar ROM, paraspinal muscle tenderness, thoraco-lumbar ROM limited, No thoracic spinal tenderness and lumbar spinal tenderness Pelvis: no buttock tenderness Sacroiliac joints: bilaterally tender to palpation Extrem General: Yes capillary refill normal, Yes no clubbing, cyanosis or edema and Yes no calf tenderness Right upper extremity: shoulder/upper arm Details: tenderness Location: of the A-C joint and over the subacromial bursa and crepitus; no swelling, no ecchymosis and no unusual warmth Right lower extremity: hip/thigh (+Rafael's. TTP in SIJ and lateral hip, no groin pain.) Left lower extremity: hip/thigh (+Rafael's. TTP in SIJ and lateral hip, no groin pain) Psych Appearance: grossly normal Mental Status: mental status grossly normal Speech and movement: Normal speech and movement present Affect: normal affect Attitude: cooperative Thought process: Normal thought process present Thought content: Normal thought content present, suicidality (none), no hallucinations and No Depressive thoughts present Insight: Good insight present (Psych) Judgement: Good judgement present (Psych) Results Reviewed Results Reviewed: XR THORACIC SPINE 09/27/23 CLINICAL INFORMATION: Pain in thoracic spine. FINDINGS: Bony mineralization is normal. There is a mild thoracolumbar levoscoliosis. There are mild T11 and moderate T12 anterior wedge compression fractures. There is Schmorl's node formation at T11-T12 and T12-L1. There is moderate disc space narrowing at T12-L1. The remaining disc spaces are relatively well-maintained. No acute fracture or spondylolisthesis is seen. There is multi-level mild thoracic spondylosis. The posterior elements are intact. The paravertebral soft tissues are unremarkable. IMPRESSION: 1. Mild T11 and moderate T12 anterior wedge compression fractures are seen. 2. There is Schmorl's node formation at T11-T12 and T12-L1. 3. There is moderate degenerative disc disease at T12-L1. 4. There is multi-level mild thoracic spondylosis. 5. There is a mild thoracolumbar levoscoliosis. XR LUMBOSACRAL SPINE 09/27/23 CLINICAL INFORMATION: Lumbar spondylosis without myelopathy or radiculopathy. FINDINGS: Vertebral body heights are normal. At L1-L2, there is Schmorl's node formation. At L5-S1, there is moderately severe disc space narrowing. There are small limbus vertebra seen at the anterior aspects of the L4-L5 and L5-S1 disc spaces. The posterior elements are intact. The paravertebral soft tissues are unremarkable. IMPRESSION: 1. There is moderately severe degenerative disc disease at L5-S1. 2. There is Schmorl's node formation at L1-L2. XR SHOULDER, RIGHT 09/27/23 FINDINGS: Bony alignment and mineralization are normal. The glenohumeral joint is intact and shows moderately severe osteoarthritic change. The acromioclavicular and coracoclavicular intervals are normal. No fracture or dislocation is seen. There is mild calcific tendinitis at the right rotator cuff insertion. No foreign body is seen. There is no right pneumothorax. IMPRESSION: 1. There is moderately severe osteoarthritic change of the right glenohumeral joint. 2. There is mild calcific tendinitis of the right rotator cuff insertion. Assessment & Plan Assessment & Plan (1) Right shoulder pain: Code(s): M25.511 - Pain in right shoulder (2) Arthritis of right glenohumeral joint: Code(s): M19.011 - Primary osteoarthritis, right shoulder (3) Robbie-Danlos syndrome: Code(s): Q79.60 - Robbie-Danlos syndrome, unspecified (4) Thoracic back pain: Code(s): M54.6 - Pain in thoracic spine (5) Sacroiliac joint pain: Code(s): M53.3 - Sacrococcygeal disorders, not elsewhere classified (6) Lumbar spondylosis: Code(s): M47.816 - Spondylosis without myelopathy or radiculopathy, lumbar region Plan Patient has shown accountability for her medication regimen and the pill count was accurate. There is no evidence of misuse, abuse or diversion at this time. [employer] reviewed. Prescription sent for Tramadol 50 mg TID prn with an advanced date of 12/07/23. Continue daily physical activity, adequate hydration, weight loss and home exercise program. Pending thoracic and lumbar spine MRIs to follow up anterior wedge compression fractures at T11-T12. Reviewed interventional treatments for right shoulder, low back, SIJ and knee pain with Sprint PNS trial vs RFA procedures. Informational pamphlets provided. All questions were answered and the patient is in agreement with the plan. Follow up in 4 weeks for a pill count or sooner as needed. Medications: Refilled tramadol Partial Fill upon patient request. 50 mg PO TID 30 days PRN 90 tabs 1RF pain M47.816 - Spondylosis without myelopathy or radiculopathy, lumbar region, M53.3 - Sacrococcygeal disorders, not elsewhere classified, Q79.60 - Robbie-Danlos syndrome, unspecified Coding Level of Care Code Est Pt Level 4 (98381) Diagnoses Right shoulder pain M25.511 Arthritis of right glenohumeral joint M19.011 Robbie-Danlos syndrome Q79.60 Thoracic back pain M54.6 Sacroiliac joint pain M53.3 Lumbar spondylosis M47.816
[2023-11-23 13:47] VITALS: BP 149/94; PULSE 73; O2SAT 97; BMI 51.2
== END 2023-11-23 14:00 | disposition home or self-care (01) ==
PROVIDERS: PCP Internal Medicine; Visit Provider Nurse Practitioner Family
DX: M25.511 Pain in right shoulder (principal); M19.011 Primary osteoarthritis, right shoulder; Q79.60 Ehlers-Danlos syndrome, unspecified; M54.6 Pain in thoracic spine; M53.3 Sacrococcygeal disorders, not elsewhere classified; M47.816 Spondylosis without myelopathy or radiculopathy, lumbar region
CPT/HCPCS: 99214

== ENCOUNTER → 2023-11-23 13:36 | Outpatient (BNVA) | payer MEDICARE, MEDICAID, SELFPAY | PROVIDERS: PCP Internal Medicine; Visit Provider Nurse Practitioner Family | DX: Z51.81 Encounter for therapeutic drug level monitoring (principal); F11.20 Opioid dependence, uncomplicated; M25.511 Pain in right shoulder; M19.011 Primary osteoarthritis, right shoulder; M54.6 Pain in thoracic spine; M53.3 Sacrococcygeal disorders, not elsewhere classified; M47.816 Spondylosis without myelopathy or radiculopathy, lumbar region; Q79.60 Ehlers-Danlos syndrome, unspecified | CPT/HCPCS: 99212 ==

== ENCOUNTER 2024-01-17 10:58 | Outpatient (AMB) | payer MEDICARE, MEDICAID, SELFPAY ==
--- NOTE | 2024-01-17 11:01 | MHC.OFFVIS ---
Vital Signs 01/17/24 11:10 Height 5 ft Weight 265 lb 6 oz BMI 51.8 BP 161/83 H Blood Pressure Location Lt brachial Position Sitting Pulse 79 Pulse Source Pulse Oximeter Pulse Oximetry (%) 97 Oxygen Delivery Method Room Air Intake Visit Reasons: PILL COUNT Intake Note: Park comes in today for a pill count to Tramadol, patient should have 66 tablets and presents with 71 tablets which she last took today 01/17/24 at 10am. Pain today 02/26. 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 She is supposed to have #66 pills, in her possession has #71 pills. This demonstrates a responsible attitude in regards to the medication regimen. Patient reports adequate analgesia on her regimen of tramadol 50 mg TID prn daily as needed with no noted side effects. Denies any fever, chills, chest pain, shortness of breaths, constipation, nausea, sedation, dizziness, or urinary retention. [facility] Medical History Heart palpitations Asthma Morbid obesity with BMI of 50.0-59.9, adult Sacroiliac joint pain Migraines Robbie-Danlos syndrome Lumbar spondylosis Review of Systems Const All systems reviewed & are unremarkable except as noted in HPI and below Physical Exam Vital Signs: Last Vital Signs Pulse 79 01/17/24 11:10 BP 161/83 H 01/17/24 11:10 Pulse Ox 97 01/17/24 11:10 Oxygen Delivery Method Room Air 01/17/24 11:10 BMI result Body Mass Index 51.8 General: Appears afebrile. Alert and oriented. Mood and affect appropriate. Follows and participates in conversation appropriately. Respiratory effort is unlabored. No cough. Able to transition from sit to stand unassisted. Ambulates with bilaterally normal heel strike and toe off. Psych Appearance: grossly normal and well kempt Mental Status: mental status grossly normal Speech and movement: Normal speech and movement present Affect: normal affect Attitude: cooperative Thought process: Normal thought process present Thought content: Normal thought content present, suicidality (none), no hallucinations and No Depressive thoughts present Insight: Good insight present (Psych) Judgement: Good judgement present (Psych) Assessment & Plan Assessment & Plan (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, unspecified Category: Medical (2) Thoracic back pain: Code(s): M54.6 - Pain in thoracic spine Category: Medical (3) Sacroiliac joint pain: Code(s): M53.3 - Sacrococcygeal disorders, not elsewhere classified Category: Medical (4) Lumbar spondylosis: Code(s): M47.816 - Spondylosis without myelopathy or radiculopathy, lumbar region Category: Medical (5) Sacroiliitis: Code(s): M46.1 - Sacroiliitis, not elsewhere classified Category: Medical Plan Patient has shown accountability for her medication regimen and the pill count was accurate. There is no evidence of misuse, abuse or diversion at this time. [email or web address] reviewed. Prescription sent for Tramadol 50 mg TID prn with an advanced date of 02/09/24 with one refill provided. Continue daily physical activity, adequate hydration, weight loss and home exercise program. All questions were answered and the patient is in agreement with the plan. Follow up in 2 months for a pill count or sooner as needed. Medications: Refilled tramadol Partial Fill upon patient request. 50 mg PO TID 30 days PRN 90 tabs 1RF pain M47.816 - Spondylosis without myelopathy or radiculopathy, lumbar region, M53.3 - Sacrococcygeal disorders, not elsewhere classified, Q79.60 - Robbie-Danlos syndrome, unspecified Coding Level of Care Code Est Pt Level 4 (43757) Diagnoses Robbie-Danlos syndrome Q79.60 Thoracic back pain M54.6 Sacroiliac joint pain M53.3 Lumbar spondylosis M47.816 Sacroiliitis M46.1
[2024-01-17 11:10] VITALS: BP 161/83; PULSE 79; O2SAT 97; BMI 51.8
== END 2024-01-17 11:15 | disposition home or self-care (01) ==
PROVIDERS: PCP Internal Medicine; Visit Provider Nurse Practitioner Family
DX: Q79.60 Ehlers-Danlos syndrome, unspecified (principal); M54.6 Pain in thoracic spine; M53.3 Sacrococcygeal disorders, not elsewhere classified; M47.816 Spondylosis without myelopathy or radiculopathy, lumbar region; M46.1 Sacroiliitis, not elsewhere classified
CPT/HCPCS: 99214

== ENCOUNTER → 2024-01-17 10:58 | Outpatient (BNVA) | payer MEDICARE, MEDICAID, SELFPAY | PROVIDERS: PCP Internal Medicine; Visit Provider Nurse Practitioner Family | DX: Z51.81 Encounter for therapeutic drug level monitoring (principal); F11.20 Opioid dependence, uncomplicated; Q79.60 Ehlers-Danlos syndrome, unspecified; M54.6 Pain in thoracic spine; M53.3 Sacrococcygeal disorders, not elsewhere classified; M47.816 Spondylosis without myelopathy or radiculopathy, lumbar region; M46.1 Sacroiliitis, not elsewhere classified | CPT/HCPCS: 99212 ==

== ENCOUNTER 2024-03-04 10:18 | Outpatient (AMB) | payer MEDICARE, MEDICAID, SELFPAY ==
--- NOTE | 2024-03-04 10:26 | MHC.OFFWIV ---
Intake Vital Signs 03/04/24 10:29 Height 4 ft 11 in Weight 267 lb 2 oz BMI 53.9 BP 135/88 Blood Pressure Location Lt brachial Position Sitting Pulse 70 Pulse Source Pulse Oximeter Pulse Oximetry (%) 98 Oxygen Delivery Method Room Air Intake Visit Reasons: Dizziness Intake Note: Patient is here with dizziness since yesterday. She states her blood sugar was 144 last night when she pulled over, because it happened while she was driving. Patient Tobacco Use Status: Former Tobacco user Is last menstrual period known: Yes Last menstrual period: 02/22/24 Allergies Sulfa (Sulfonamide Antibiotics) Allergy (Severe, Verified 03/04/24 10:57) Diarrhea sertraline [From Zoloft] Allergy (Unknown, Verified 03/04/24 10:57) unknown valerian root Allergy (Unknown, Uncoded 03/04/24 10:36) unknown Medication List - Last Reconciled 03/04/24 by Fernanda Beltran, [employer] acetaminophen 1,000 mg (2 x 500 mg) PO BID PRN 30 days albuterol sulfate 90 mcg/actuation (Ventolin HFA) 2 puffs inhalation Q6H PRN vqaixvaxpq-yecujlrx-ysszrkwjse 160-9-4.8 mcg/actuation (Breztri Aerosphere) inhalations inhalation clonazepam 0.5 mg PO DAILY PRN epinephrine IM L.acidophilus,helvet-B.bifidum 250 million cell (Acidophilus Probiotic Complex) caps PO levocetirizine (Xyzal) 5 mg PO DAILY levocetirizine 5 mg PO DAILY naloxone 4 mg/actuation 0 sprays intranasal omeprazole 20 mg PO DAILY PNV #[id number] acid-omega3 30 mg iron-10 mg iron-1 mg caps PO propranolol ER 60 mg PO DAILY tramadol 50 mg PO TID PRN 30 days Do you need a note to return to daycare/school/sports/work: Yes HPI HPI Comments History of Present Illness Details Here today with chief complaints of sudden onset of dizziness that occurred yesterday while driving. Reports that this is never happened before. Reports that she was in her normal state of health while driving with her child. She started to feel dizzy and immediately pulled over. Since this time her symptoms have continued on and off more on than off . She reports a history of borderline diabetes she did check her glucose at the time of the episode reports that it was 144 mg/dL. She denies chance of , last menstrual period ended on 02/22/2024. She denies fever, headache, visual disturbances, nausea, vomiting, head trauma. She does wear glasses and reports that this prescription is not new. Movement makes the dizziness worse. Awake alert NAD Head atraumatic Sclera and conjunctiva clear bilat Nares patent, turbinates within normal limits, no sinus tenderness with palpation bilat TM intact with congestion bilat, positive [place]-Hallpike MMM, pharynx WNL RRR LS CTAB This note is constructed using voice recognition software. While every effort has been made to ensure accuracy in air bag buffer, still errors may have been included Sometimes, these errors may affect the content or meaning of the given sentence . Total time spent caring for the patient today was 30 minutes. This includes time spent before the visit reviewing the chart, time spent during the visit, and time spent after the visit on documentation [facility] Medical History Heart palpitations Asthma Morbid obesity with BMI of 50.0-59.9, adult Sacroiliac joint pain Migraines Robbie-Danlos syndrome Lumbar spondylosis Social History Patient Tobacco Use Status: Former Tobacco user Female Reproductive History Menstrual Date of last menstrual period: 02/22/24 Physical Exam Vital Signs: Last Vital Signs Pulse 70 03/04/24 10:29 BP 135/88 03/04/24 10:29 Pulse Ox 98 03/04/24 10:29 Oxygen Delivery Method Room Air 03/04/24 10:29 BMI result Body Mass Index 53.9 Assessment & Plan Assessment & Plan (1) BPPV (benign paroxysmal positional vertigo): Code(s): H81.10 - Benign paroxysmal vertigo, unspecified ear Qualifiers: Laterality: bilateral Qualified Code(s): H81.13 - Benign paroxysmal vertigo, bilateral Plan: . Medications: New meclizine 25 mg PO BID PRN 30 tabs 0RF dizziness Patient Instructions: Please f/u with PCP and ask for an order for Vestibular therapy. You can google some home exercise to try to help slow position changes and head movements use meclizine twice per day as needed for dizziness Coding Level of Care Code Est Pt Level 4 (33620) Diagnoses Benign paroxysmal positional vertigo due to bilateral vestibular disorder H81.13 Laterality: bilateral
[2024-03-04 10:29] VITALS: BP 135/88; PULSE 70; O2SAT 98; BMI 53.9
== END 2024-03-04 11:10 | disposition home or self-care (01) ==
PROVIDERS: PCP Internal Medicine; Visit Provider Nurse Practitioner Family
DX: H81.13 Benign paroxysmal vertigo, bilateral (principal)
CPT/HCPCS: 99214

== ENCOUNTER → 2024-03-07 08:50 | Outpatient (BNVA) | payer MEDICARE, MEDICAID, SELFPAY | PROVIDERS: PCP Internal Medicine; Visit Provider Nurse Practitioner Family ==

== ENCOUNTER 2024-05-05 10:38 | Outpatient (AMB) | payer MEDICARE, MEDICAID, SELFPAY ==
--- NOTE | 2024-05-05 10:50 | MHC.OFFVIS ---
Vital Signs 05/05/24 11:02 Height 4 ft 11 in Weight 268 lb 2 oz BMI 54.1 BP 159/82 H Blood Pressure Location Lt brachial Position Sitting Pulse 81 Pulse Source Pulse Oximeter Pulse Oximetry (%) 98 Oxygen Delivery Method Room Air Intake Visit Reasons: Pill Count Intake Note: Park comes in today for a pill count to Tramadol, patient should have 18 tablets and presents with 25 tablets which she last took today at 6am. Pain today 02/26 Certified Coding Specialist Required: No Accompanied by: Self / Same As Patient Allergies Sulfa (Sulfonamide Antibiotics) Allergy (Severe, Verified 03/07/24 09:11) Diarrhea sertraline [From Zoloft] Allergy (Unknown, Verified 03/07/24 09:11) unknown valerian root Allergy (Unknown, Uncoded 03/04/24 10:36) unknown HPI Comments Details: Patient presents today for her pill count. She is supposed to have #18 pills, in her possession has #25 pills. This demonstrates a responsible attitude in regards to the medication regimen. Patient reports adequate analgesia on her regimen of tramadol 50 mg TID prn daily as needed with no noted side effects. Denies any fever, chills, chest pain, shortness of breaths, constipation, nausea, sedation, dizziness, or urinary retention. She continues weight loss journey with HEP, going to gym 2-3 times/week at [employer]. Reports sudden onset of dizziness in February and was evaluated at [facility] and started on meclizine for BPPV. She reports 2 episodes of vertigo and is interested in Vestibular PT. REPLACED BY [facility] Medical History Heart palpitations Asthma Morbid obesity with BMI of 50.0-59.9, adult Sacroiliac joint pain Migraines Robbie-Danlos syndrome Lumbar spondylosis Social History Patient Tobacco Use Status: Former Tobacco user Review of Systems Const All systems reviewed & are unremarkable except as noted in HPI and below Physical Exam General: Appears afebrile. Alert and oriented. Mood and affect appropriate. Follows and participates in conversation appropriately. Respiratory effort is unlabored. No cough. Able to transition from sit to stand unassisted. Ambulates with bilaterally normal heel strike and toe off. Back/Spine/Pelvis Cervical Spine: cervical ROM normal, cervical muscular tenderness and No Cervical spine tenderness Thoracic/Lumbar Spine: thoracic and lumbar spine normal to inspection, Lasegue's sign negative, straight leg raise negative bilaterally, pain with thoraco-lumbar ROM, paraspinal muscle tenderness, thoraco-lumbar ROM limited, No thoracic spinal tenderness and lumbar spinal tenderness at L4 and at L5 Sacroiliac joints: bilaterally tender to palpation Psych Appearance: grossly normal and well kempt Mental Status: mental status grossly normal Speech and movement: Normal speech and movement present Affect: normal affect Attitude: cooperative Thought process: Normal thought process present Thought content: Normal thought content present, suicidality (none), no hallucinations and No Depressive thoughts present Insight: Good insight present (Psych) Judgement: Good judgement present (Psych) Results Reviewed Results Reviewed: XR THORACIC SPINE 09/27/23 CLINICAL INFORMATION: Pain in thoracic spine. FINDINGS: Bony mineralization is normal. There is a mild thoracolumbar levoscoliosis. There are mild T11 and moderate T12 anterior wedge compression fractures. There is Schmorl's node formation at T11-T12 and T12-L1. There is moderate disc space narrowing at T12-L1. The remaining disc spaces are relatively well-maintained. No acute fracture or spondylolisthesis is seen. There is multi-level mild thoracic spondylosis. The posterior elements are intact. The paravertebral soft tissues are unremarkable. IMPRESSION: 1. Mild T11 and moderate T12 anterior wedge compression fractures are seen. 2. There is Schmorl's node formation at T11-T12 and T12-L1. 3. There is moderate degenerative disc disease at T12-L1. 4. There is multi-level mild thoracic spondylosis. 5. There is a mild thoracolumbar levoscoliosis. XR LUMBOSACRAL SPINE 09/27/23 CLINICAL INFORMATION: Lumbar spondylosis without myelopathy or radiculopathy. FINDINGS: Vertebral body heights are normal. At L1-L2, there is Schmorl's node formation. At L5-S1, there is moderately severe disc space narrowing. There are small limbus vertebra seen at the anterior aspects of the L4-L5 and L5-S1 disc spaces. The posterior elements are intact. The paravertebral soft tissues are unremarkable. IMPRESSION: 1. There is moderately severe degenerative disc disease at L5-S1. 2. There is Schmorl's node formation at L1-L2. XR SHOULDER, RIGHT 09/27/23 FINDINGS: Bony alignment and mineralization are normal. The glenohumeral joint is intact and shows moderately severe osteoarthritic change. The acromioclavicular and coracoclavicular intervals are normal. No fracture or dislocation is seen. There is mild calcific tendinitis at the right rotator cuff insertion. No foreign body is seen. There is no right pneumothorax. IMPRESSION: 1. There is moderately severe osteoarthritic change of the right glenohumeral joint. 2. There is mild calcific tendinitis of the right rotator cuff insertion. Assessment & Plan Assessment & Plan (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, unspecified Category: Medical (2) Thoracic back pain: Code(s): M54.6 - Pain in thoracic spine Category: Medical (3) Sacroiliac joint pain: Code(s): M53.3 - Sacrococcygeal disorders, not elsewhere classified Category: Medical (4) Lumbar spondylosis: Code(s): M47.816 - Spondylosis without myelopathy or radiculopathy, lumbar region Category: Medical (5) Sacroiliitis: Code(s): M46.1 - Sacroiliitis, not elsewhere classified Category: Medical (6) BPPV (benign paroxysmal positional vertigo): Code(s): H81.10 - Benign paroxysmal vertigo, unspecified ear Category: Medical Qualifiers: Laterality: bilateral Qualified Code(s): H81.13 - Benign paroxysmal vertigo, bilateral Plan: Vestibular PT ordered per patient's request in [facility] where previously completed PT. Plan Patient has shown accountability for her medication regimen and the pill count was accurate. There is no evidence of misuse, abuse or diversion at this time. [employer] reviewed. Prescription sent for Tramadol 50 mg TID prn with an advanced date of 05/10/24 with one refill provided. Continue daily physical activity, adequate hydration, weight loss and home exercise program. All questions were answered and the patient is in agreement with the plan. Follow up in 2 months for a pill count or sooner as needed. Orders: Orders PT Evaluation and Treatment Today H81.13 - Benign paroxysmal vertigo, bilateral Medications: Refilled tramadol Partial Fill upon patient request. 50 mg PO TID 30 days PRN 90 tabs 1RF pain M47.816 - Spondylosis without myelopathy or radiculopathy, lumbar region, M53.3 - Sacrococcygeal disorders, not elsewhere classified, Q79.60 - Robbie-Danlos syndrome, unspecified Coding Level of Care Code Est Pt Level 4 (86831) Complex EM visit Add On G2211 Diagnoses Robbie-Danlos syndrome Q79.60 Thoracic back pain M54.6 Sacroiliac joint pain M53.3 Lumbar spondylosis M47.816 Sacroiliitis M46.1 Benign paroxysmal positional vertigo due to bilateral vestibular disorder H81.13 Laterality: bilateral
[2024-05-05 11:02] VITALS: BP 159/82; PULSE 81; O2SAT 98; BMI 54.1
== END 2024-05-05 11:23 | disposition home or self-care (01) ==
PROVIDERS: PCP Internal Medicine; Visit Provider Nurse Practitioner Family
DX: Q79.60 Ehlers-Danlos syndrome, unspecified (principal); M54.6 Pain in thoracic spine; M53.3 Sacrococcygeal disorders, not elsewhere classified; M47.816 Spondylosis without myelopathy or radiculopathy, lumbar region; M46.1 Sacroiliitis, not elsewhere classified; H81.13 Benign paroxysmal vertigo, bilateral
CPT/HCPCS: 99214; G2211

== ENCOUNTER → 2024-05-05 10:38 | Outpatient (BNVA) | payer MEDICARE, MEDICAID, SELFPAY | PROVIDERS: PCP Internal Medicine; Visit Provider Nurse Practitioner Family | DX: M54.6 Pain in thoracic spine (principal); M53.3 Sacrococcygeal disorders, not elsewhere classified; M47.816 Spondylosis without myelopathy or radiculopathy, lumbar region; M46.1 Sacroiliitis, not elsewhere classified; Q79.60 Ehlers-Danlos syndrome, unspecified; H81.13 Benign paroxysmal vertigo, bilateral; Z51.81 Encounter for therapeutic drug level monitoring; Z79.891 Long term (current) use of opiate analgesic | CPT/HCPCS: 99212 ==

== ENCOUNTER 2024-07-07 10:57 | Outpatient (AMB) | payer MEDICARE, MEDICAID, SELFPAY ==
--- NOTE | 2024-07-07 11:06 | MHC.OFFVIS ---
Vital Signs 07/07/24 11:15 Height 4 ft 11 in Weight 269 lb 8 oz BMI 54.4 BP 142/80 H Blood Pressure Location Lt brachial Position Sitting Respiration 16 Pulse 81 Pulse Source Pulse Oximeter Pulse Oximetry (%) 97 Oxygen Delivery Method Room Air Intake Visit Reasons: pill count Intake Note: Patient comes in for pill count. Presented with 14 tablets and should have 12 tablets. Which she took last this morning at 6am. Patient reports pain level today of 7-8/10. Allergies Sulfa (Sulfonamide Antibiotics) Allergy (Severe, Verified 07/07/24 11:17) Diarrhea sertraline [From Zoloft] Allergy (Unknown, Verified 07/07/24 11:17) unknown valerian root Allergy (Unknown, Uncoded 03/04/24 10:36) unknown HPI Comments Details: Patient presents today for her pill count. She is supposed to have #12 pills, in her possession has #14 pills. This demonstrates a responsible attitude in regards to the medication regimen. Patient reports adequate analgesia on her regimen of tramadol 50 mg TID prn daily as needed with no noted side effects. Denies any fever, chills, chest pain, shortness of breaths, constipation, nausea, sedation, dizziness, or urinary retention. Patient reports she has not been able to continue gym sessions due to chronic right foot pain. She uses rollator walker with seat with long distances. She has upcoming vacation to [place] and requests letter for carrying medication and walker during her vacation. [facility] Medical History Heart palpitations Asthma Morbid obesity with BMI of 50.0-59.9, adult Sacroiliac joint pain Migraines Robbie-Danlos syndrome Lumbar spondylosis Social History Patient Tobacco Use Status: Former Tobacco user Review of Systems Const All systems reviewed & are unremarkable except as noted in HPI and below Physical Exam General: Appears afebrile. Alert and oriented. Mood and affect appropriate. Follows and participates in conversation appropriately. Respiratory effort is unlabored. No cough. Able to transition from sit to stand unassisted. Ambulates with bilaterally normal heel strike and toe off, except on the right due to pain. General: Yes no CVA tenderness Back/Spine/Pelvis Back: no CVA tenderness Cervical Spine: cervical ROM normal, cervical muscular tenderness, cervical spasm, No Cervical spine tenderness and No step off deformity Thoracic/Lumbar Spine: thoracic and lumbar spine normal to inspection, Lasegue's sign negative, straight leg raise negative bilaterally, pain with thoraco-lumbar ROM, paraspinal muscle tenderness, thoraco-lumbar ROM limited, No thoracic spinal tenderness and lumbar spinal tenderness at L4 and at L5 Pelvis: buttock tenderness bilaterally Sacroiliac joints: bilaterally tender to palpation Extrem General: Yes capillary refill normal, Yes no clubbing, cyanosis or edema and Yes no calf tenderness Psych Appearance: grossly normal Mental Status: mental status grossly normal Speech and movement: Normal speech and movement present and Clear speech present Affect: normal affect Attitude: cooperative Thought process: Normal thought process present Thought content: Normal thought content present, suicidality (none), no hallucinations and No Depressive thoughts present Insight: Good insight present (Psych) Judgement: Good judgement present (Psych) Results Reviewed Results Reviewed: XR THORACIC SPINE 09/27/23 CLINICAL INFORMATION: Pain in thoracic spine. FINDINGS: Bony mineralization is normal. There is a mild thoracolumbar levoscoliosis. There are mild T11 and moderate T12 anterior wedge compression fractures. There is Schmorl's node formation at T11-T12 and T12-L1. There is moderate disc space narrowing at T12-L1. The remaining disc spaces are relatively well-maintained. No acute fracture or spondylolisthesis is seen. There is multi-level mild thoracic spondylosis. The posterior elements are intact. The paravertebral soft tissues are unremarkable. IMPRESSION: 1. Mild T11 and moderate T12 anterior wedge compression fractures are seen. 2. There is Schmorl's node formation at T11-T12 and T12-L1. 3. There is moderate degenerative disc disease at T12-L1. 4. There is multi-level mild thoracic spondylosis. 5. There is a mild thoracolumbar levoscoliosis. XR LUMBOSACRAL SPINE 09/27/23 CLINICAL INFORMATION: Lumbar spondylosis without myelopathy or radiculopathy. FINDINGS: Vertebral body heights are normal. At L1-L2, there is Schmorl's node formation. At L5-S1, there is moderately severe disc space narrowing. There are small limbus vertebra seen at the anterior aspects of the L4-L5 and L5-S1 disc spaces. The posterior elements are intact. The paravertebral soft tissues are unremarkable. IMPRESSION: 1. There is moderately severe degenerative disc disease at L5-S1. 2. There is Schmorl's node formation at L1-L2. XR SHOULDER, RIGHT 09/27/23 FINDINGS: Bony alignment and mineralization are normal. The glenohumeral joint is intact and shows moderately severe osteoarthritic change. The acromioclavicular and coracoclavicular intervals are normal. No fracture or dislocation is seen. There is mild calcific tendinitis at the right rotator cuff insertion. No foreign body is seen. There is no right pneumothorax. IMPRESSION: 1. There is moderately severe osteoarthritic change of the right glenohumeral joint. 2. There is mild calcific tendinitis of the right rotator cuff insertion. Assessment & Plan Assessment & Plan (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, unspecified Category: Medical (2) Thoracic back pain: Code(s): M54.6 - Pain in thoracic spine Category: Medical (3) Sacroiliac joint pain: Code(s): M53.3 - Sacrococcygeal disorders, not elsewhere classified Category: Medical (4) Lumbar spondylosis: Code(s): M47.816 - Spondylosis without myelopathy or radiculopathy, lumbar region Category: Medical (5) Sacroiliitis: Code(s): M46.1 - Sacroiliitis, not elsewhere classified Category: Medical (6) Opioid contract exists: Code(s): Z79.891 - assisted (current) use of opiate analgesic Category: Medical Plan Patient has shown accountability for her medication regimen and the pill count was accurate. There is no evidence of misuse, abuse or diversion at this time. Lat[employer] reviewed. Prescription sent for Tramadol 50 mg TID prn with an advanced date of 07/10/24 with one refill provided. Narcan refilled. Continue daily physical activity, adequate hydration, weight loss and home exercise program. Travel letter provided for patient for upcoming vacation to [place]. All questions were answered and the patient is in agreement with the plan. Follow up in 2 months for a pill count or sooner as needed. 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 50 mg PO TID 30 days PRN 90 tabs 1RF pain M47.816 - Spondylosis without myelopathy or radiculopathy, lumbar region, M53.3 - Sacrococcygeal disorders, not elsewhere classified, Q79.60 - Robbie-Danlos syndrome, unspecified Coding Level of Care Code Est Pt Level 4 (79385) Complex EM visit Add On G2211 Diagnoses Robbie-Danlos syndrome Q79.60 Thoracic back pain M54.6 Sacroiliac joint pain M53.3 Lumbar spondylosis M47.816 Sacroiliitis M46.1 Opioid contract exists Z79.891
[2024-07-07 11:15] VITALS: BP 142/80; PULSE 81; RESP 16; O2SAT 97; BMI 54.4
== END 2024-07-07 11:22 | disposition home or self-care (01) ==
PROVIDERS: PCP Internal Medicine; Visit Provider Nurse Practitioner Family
DX: Q79.60 Ehlers-Danlos syndrome, unspecified (principal); M54.6 Pain in thoracic spine; M53.3 Sacrococcygeal disorders, not elsewhere classified; M47.816 Spondylosis without myelopathy or radiculopathy, lumbar region; M46.1 Sacroiliitis, not elsewhere classified; Z79.891 Long term (current) use of opiate analgesic
CPT/HCPCS: 99214; G2211

== ENCOUNTER → 2024-07-07 10:57 | Outpatient (BNVA) | payer MEDICARE, MEDICAID, SELFPAY | PROVIDERS: PCP Internal Medicine; Visit Provider Nurse Practitioner Family | DX: M54.6 Pain in thoracic spine (principal); Q79.60 Ehlers-Danlos syndrome, unspecified; M79.671 Pain in right foot; M53.3 Sacrococcygeal disorders, not elsewhere classified; M47.816 Spondylosis without myelopathy or radiculopathy, lumbar region; M46.1 Sacroiliitis, not elsewhere classified; Z51.81 Encounter for therapeutic drug level monitoring; Z79.891 Long term (current) use of opiate analgesic | CPT/HCPCS: 99212 ==

== ENCOUNTER 2024-09-05 10:53 | Outpatient (AMB) | payer MEDICARE, MEDICAID, SELFPAY ==
--- NOTE | 2024-09-05 10:55 | MHC.OFFVIS ---
Vital Signs 09/05/24 11:05 Height 4 ft 11 in Weight 269 lb 2 oz BMI 54.4 BP 170/99 H Blood Pressure Location Lt brachial Position Sitting Pulse 84 Pulse Source Pulse Oximeter Intake Visit Reasons: PILL COUNT/ random UDS Intake Note: Park comes in today for a pill count to Tramadol, patient should have 15 tablets and presents with 24 tablets which she last took today 09/05/24 at 6am. Pain today 02/26 Patient resigned opioid contract in office today 09/05/24, copy of signed opioid contract was provided to patient. Patient will also go for random UDS today 09/05/24, aware that she will need to go to the lab on the first floor of this building today before 12pm. Allergies Sulfa (Sulfonamide Antibiotics) Allergy (Severe, Verified 09/05/24 11:05) Diarrhea sertraline [From Zoloft] Allergy (Unknown, Verified 09/05/24 11:05) unknown valerian root Allergy (Unknown, Uncoded 03/04/24 10:36) unknown HPI Comments Details: Patient presents today for her pill count. She is supposed to have #15 pills, in her possession has #24 pills. This demonstrates a responsible attitude in regards to the medication regimen. Patient reports adequate analgesia on current regimen of tramadol 50 mg TID prn daily as needed with no noted side effects. Denies any fever, chills, chest pain, shortness of breaths, constipation, nausea, sedation, dizziness, or urinary retention. She was recently prescribed Zepbound per Cardiology for weight loss but has not started injections as she recently received her flu vaccine recently. Sees Mental health therapy for PTSD and increased levels of stress due to her ex-boyfriend violating lifetime restraint order. Denies any SI/HI or hallucination but notes waking up with PTSD flare up frequently. She takes clonazepam, also does meditation and regular counseling. FORMERLY [facility], [facility]1983 Medical History Heart palpitations Asthma Morbid obesity with BMI of 50.0-59.9, adult Sacroiliac joint pain Migraines Robbie-Danlos syndrome Lumbar spondylosis Social History Patient Tobacco Use Status: Former Tobacco user Review of Systems Const All systems reviewed & are unremarkable except as noted in HPI and below Physical Exam General: Appears afebrile. Alert and oriented. Mood and affect appropriate. Follows and participates in conversation appropriately. Respiratory effort is unlabored. No cough. Able to transition from sit to stand unassisted. Ambulates with bilaterally normal heel strike and toe off. Psych Appearance: grossly normal and well kempt Mental Status: mental status grossly normal Speech and movement: Normal speech and movement present and Clear speech present Affect: normal affect and Sad affect present Attitude: cooperative Thought process: Normal thought process present Thought content: Normal thought content present, suicidality (none), no hallucinations and Depressive thoughts present Insight: Good insight present (Psych) Judgement: Good judgement present (Psych) Results Reviewed Results Reviewed: XR THORACIC SPINE 09/27/23 CLINICAL INFORMATION: Pain in thoracic spine. FINDINGS: Bony mineralization is normal. There is a mild thoracolumbar levoscoliosis. There are mild T11 and moderate T12 anterior wedge compression fractures. There is Schmorl's node formation at T11-T12 and T12-L1. There is moderate disc space narrowing at T12-L1. The remaining disc spaces are relatively well-maintained. No acute fracture or spondylolisthesis is seen. There is multi-level mild thoracic spondylosis. The posterior elements are intact. The paravertebral soft tissues are unremarkable. IMPRESSION: 1. Mild T11 and moderate T12 anterior wedge compression fractures are seen. 2. There is Schmorl's node formation at T11-T12 and T12-L1. 3. There is moderate degenerative disc disease at T12-L1. 4. There is multi-level mild thoracic spondylosis. 5. There is a mild thoracolumbar levoscoliosis. XR LUMBOSACRAL SPINE 09/27/23 CLINICAL INFORMATION: Lumbar spondylosis without myelopathy or radiculopathy. FINDINGS: Vertebral body heights are normal. At L1-L2, there is Schmorl's node formation. At L5-S1, there is moderately severe disc space narrowing. There are small limbus vertebra seen at the anterior aspects of the L4-L5 and L5-S1 disc spaces. The posterior elements are intact. The paravertebral soft tissues are unremarkable. IMPRESSION: 1. There is moderately severe degenerative disc disease at L5-S1. 2. There is Schmorl's node formation at L1-L2. XR SHOULDER, RIGHT 09/27/23 FINDINGS: Bony alignment and mineralization are normal. The glenohumeral joint is intact and shows moderately severe osteoarthritic change. The acromioclavicular and coracoclavicular intervals are normal. No fracture or dislocation is seen. There is mild calcific tendinitis at the right rotator cuff insertion. No foreign body is seen. There is no right pneumothorax. IMPRESSION: 1. There is moderately severe osteoarthritic change of the right glenohumeral joint. 2. There is mild calcific tendinitis of the right rotator cuff insertion. Assessment & Plan Assessment & Plan (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, unspecified Category: Medical (2) Thoracic back pain: Code(s): M54.6 - Pain in thoracic spine Category: Medical (3) Sacroiliac joint pain: Code(s): M53.3 - Sacrococcygeal disorders, not elsewhere classified Category: Medical (4) Lumbar spondylosis: Code(s): M47.816 - Spondylosis without myelopathy or radiculopathy, lumbar region Category: Medical (5) Sacroiliitis: Code(s): M46.1 - Sacroiliitis, not elsewhere classified Category: Medical (6) Opioid contract exists: Code(s): Z79.891 - terminal worker (current) use of opiate analgesic Category: Medical Plan Patient has shown accountability for her medication regimen and the pill count was accurate. There is no evidence of misuse, abuse or diversion at this time. [employer] reviewed. Will obtain random UDS today. Prescription sent for Tramadol 50 mg TID prn with an advanced date of 09/10/24 with one refill provided. Patient has Narcan at home. Continue daily physical activity, adequate hydration, weight loss, well balanced diet and home exercise program. Patient regularly sees Mental Health therapist for PTSD and increased levels of stress. All questions were answered and the patient is in agreement with the plan. Follow up in 2 months for a pill count or sooner as needed. Medications: Refilled tramadol Partial Fill upon patient request. 50 mg PO TID 30 days PRN 90 tabs 1RF pain M47.816 - Spondylosis without myelopathy or radiculopathy, lumbar region, M53.3 - Sacrococcygeal disorders, not elsewhere classified, Q79.60 - Robbie-Danlos syndrome, unspecified Coding Level of Care Code Est Pt Level 4 (14287) Complex EM visit Add On G2211 Diagnoses Robbie-Danlos syndrome Q79.60 Thoracic back pain M54.6 Sacroiliac joint pain M53.3 Lumbar spondylosis M47.816 Sacroiliitis M46.1 Opioid contract exists Z79.891
[2024-09-05 11:05] VITALS: BP 170/99; PULSE 84; BMI 54.4
== END 2024-09-05 11:25 | disposition home or self-care (01) ==
PROVIDERS: PCP Internal Medicine; Visit Provider Nurse Practitioner Family
DX: Q79.60 Ehlers-Danlos syndrome, unspecified (principal); M54.6 Pain in thoracic spine; M53.3 Sacrococcygeal disorders, not elsewhere classified; M47.816 Spondylosis without myelopathy or radiculopathy, lumbar region; M46.1 Sacroiliitis, not elsewhere classified; Z79.891 Long term (current) use of opiate analgesic
CPT/HCPCS: 99214; G2211

== ENCOUNTER → 2024-09-05 10:53 | Outpatient (BNVA) | payer MEDICARE, MEDICAID, SELFPAY | PROVIDERS: PCP Internal Medicine; Visit Provider Nurse Practitioner Family | DX: Z51.81 Encounter for therapeutic drug level monitoring (principal); M54.6 Pain in thoracic spine; M53.3 Sacrococcygeal disorders, not elsewhere classified; M47.816 Spondylosis without myelopathy or radiculopathy, lumbar region; M46.1 Sacroiliitis, not elsewhere classified; Q79.60 Ehlers-Danlos syndrome, unspecified; Z79.891 Long term (current) use of opiate analgesic | CPT/HCPCS: 99212 ==

== ENCOUNTER 2024-10-28 13:02 | Outpatient (AMB) | payer MEDICARE, MEDICAID, SELFPAY ==
--- NOTE | 2024-10-28 13:10 | MHC.OFFVIS ---
Vital Signs 10/28/24 13:21 10/28/24 13:22 Height 4 ft 11 in Weight 257 lb 6 oz BMI 52.0 BP 146/87 H 138/68 Blood Pressure Location Lt brachial Lt brachial Position Sitting Sitting Pulse 89 Pulse Source Pulse Oximeter Pulse Oximetry (%) 97 Oxygen Delivery Method Room Air Comment bp done manual Intake Visit Reasons: pill count Intake Note: Park comes in today for a pill count to Tramadol, patient should have 42 tablets and presents with 57 tablets which she last took today 10/28/24 at 7am. Pain today 02/26 Senior Biostatistician/Group Leader Required: No Accompanied by: Self / Same As Patient Allergies Sulfa (Sulfonamide Antibiotics) Allergy (Severe, Verified 10/28/24 13:26) Diarrhea sertraline [From Zoloft] Allergy (Unknown, Verified 10/28/24 13:26) unknown valerian root Allergy (Unknown, Uncoded 03/04/24 10:36) unknown HPI Comments Details: Patient presents today for her pill count. 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 Patient is supposed to have #42 pills, in her possession has #57 pills. This demonstrates a responsible attitude in regards to the medication regimen. Patient reports adequate analgesia on current regimen of tramadol 50 mg TID prn daily as needed with no noted side effects. Denies any fever, chills, chest pain, shortness of breaths, constipation, nausea, sedation, dizziness, or urinary retention. Patient also reports recent minor injury of her right foot when books and other objects fell on her right foot and causes bruising and swelling. She reports seeing her PCP for this last month and underwent xray which revealed plantar calcaneal spur but no fracture or dislocation. Existing treatment modalities include exercises and planned orthotics. She also manages PTSD with ongoing therapy and finds stability, while also engaging in interventions for heart palpitations with current Holter monitoring alongside obesity management efforts. - Affect: Impact on mobility and potential psychological stress noted due to severity - Analgesia: Tramadol 50 mg TID PRN; Correct pill count verified - Adverse Effects: No constipation; slight diarrhea with concurrent Zep bound use - Activities of Daily Living: Functional limitations during flare-ups noted - Aberrant Drug Related Behaviors: None reported [facility] Medical History Heart palpitations Asthma Morbid obesity with BMI of 50.0-59.9, adult Sacroiliac joint pain Migraines Robbie-Danlos syndrome Lumbar spondylosis Social History Patient Tobacco Use Status: Former Tobacco user Review of Systems Const Details: - Musculoskeletal: Reports pain on sides of legs and buttocks - Cardiovascular: Reports heart palpitations - Neurological: Denies any numbness or tingling in extremities - Gastrointestinal: Reports diarrhea with Zepbound injections All systems reviewed & are unremarkable except as noted in HPI and below Physical Exam Vital Signs: Last Vital Signs Pulse 89 10/28/24 13:21 BP 138/68 10/28/24 13:22 Pulse Ox 97 10/28/24 13:21 Oxygen Delivery Method Room Air 10/28/24 13:21 BMI result Body Mass Index 52.0 General: Appears afebrile. Alert and oriented. Mood and affect appropriate. Follows and participates in conversation appropriately. Respiratory effort is unlabored. No cough. Able to transition from sit to stand unassisted. Ambulates with bilaterally normal heel strike and toe off. Extrem General: Yes capillary refill normal, Yes no clubbing, cyanosis or edema and Yes no calf tenderness Right lower extremity: foot Details: tenderness Location: of the dorsal foot, of the plantar foot and of the calcaneus Details: point tenderness Psych Appearance: grossly normal and well kempt Mental Status: mental status grossly normal Speech and movement: Normal speech and movement present and Clear speech present Affect: normal affect and Sad affect present Attitude: cooperative Thought process: Normal thought process present Thought content: Normal thought content present, suicidality (none), no hallucinations and Depressive thoughts present Insight: Good insight present (Psych) Judgement: Good judgement present (Psych) Results Reviewed Results Reviewed: XR THORACIC SPINE 09/27/23 CLINICAL INFORMATION: Pain in thoracic spine. FINDINGS: Bony mineralization is normal. There is a mild thoracolumbar levoscoliosis. There are mild T11 and moderate T12 anterior wedge compression fractures. There is Schmorl's node formation at T11-T12 and T12-L1. There is moderate disc space narrowing at T12-L1. The remaining disc spaces are relatively well-maintained. No acute fracture or spondylolisthesis is seen. There is multi-level mild thoracic spondylosis. The posterior elements are intact. The paravertebral soft tissues are unremarkable. IMPRESSION: 1. Mild T11 and moderate T12 anterior wedge compression fractures are seen. 2. There is Schmorl's node formation at T11-T12 and T12-L1. 3. There is moderate degenerative disc disease at T12-L1. 4. There is multi-level mild thoracic spondylosis. 5. There is a mild thoracolumbar levoscoliosis. XR LUMBOSACRAL SPINE 09/27/23 CLINICAL INFORMATION: Lumbar spondylosis without myelopathy or radiculopathy. FINDINGS: Vertebral body heights are normal. At L1-L2, there is Schmorl's node formation. At L5-S1, there is moderately severe disc space narrowing. There are small limbus vertebra seen at the anterior aspects of the L4-L5 and L5-S1 disc spaces. The posterior elements are intact. The paravertebral soft tissues are unremarkable. IMPRESSION: 1. There is moderately severe degenerative disc disease at L5-S1. 2. There is Schmorl's node formation at L1-L2. XR SHOULDER, RIGHT 09/27/23 FINDINGS: Bony alignment and mineralization are normal. The glenohumeral joint is intact and shows moderately severe osteoarthritic change. The acromioclavicular and coracoclavicular intervals are normal. No fracture or dislocation is seen. There is mild calcific tendinitis at the right rotator cuff insertion. No foreign body is seen. There is no right pneumothorax. IMPRESSION: 1. There is moderately severe osteoarthritic change of the right glenohumeral joint. 2. There is mild calcific tendinitis of the right rotator cuff insertion. Right foot xray 09/25/24: No fracture or dislocation. Normal alignment. Normal joint spaces. Plantar calcaneal spur. Assessment & Plan Assessment & Plan (1) Plantar fasciitis, right: Code(s): M72.2 - Plantar fascial fibromatosis Category: Medical (2) Robbie-Danlos syndrome: Code(s): Q79.60 - Robbie-Danlos syndrome, unspecified Category: Medical (3) Thoracic back pain: Code(s): M54.6 - Pain in thoracic spine Category: Medical (4) Sacroiliac joint pain: Code(s): M53.3 - Sacrococcygeal disorders, not elsewhere classified Category: Medical (5) Lumbar spondylosis: Code(s): M47.816 - Spondylosis without myelopathy or radiculopathy, lumbar region Category: Medical (6) Sacroiliitis: Code(s): M46.1 - Sacroiliitis, not elsewhere classified Category: Medical (7) Opioid contract exists: Code(s): Z79.891 - long-term (current) use of opiate analgesic Category: Medical Plan Patient has shown accountability for her medication regimen and the pill count was accurate. There is no evidence of misuse, abuse or diversion at this time. [employer] reviewed. Recent random UDS was concordant. Prescription sent for Tramadol 50 mg TID prn with an advanced date of 11/09/24 with one refill provided. Patient has Narcan at home. Continue daily physical activity, adequate hydration, weight loss, well balanced diet and home exercise program. Patient regularly sees Mental Health therapist for PTSD and anxiet and Cardiology for heart palpitations. Patient is currently wearing Holter monitor and takes metoprolol. All questions were answered and the patient is in agreement with the plan. Follow up in 2 months for a pill count or sooner as needed. Patient was informed and verbally consented to the use of an ambient scribe for clinic note documentation during this visit. Medications: Refilled tramadol Partial Fill upon patient request. 50 mg PO TID 30 days PRN 90 tabs 1RF pain M47.816 - Spondylosis without myelopathy or radiculopathy, lumbar region, M53.3 - Sacrococcygeal disorders, not elsewhere classified, Q79.60 - Robbie-Danlos syndrome, unspecified Patient Instructions: - Continue tramadol as directed for pain management - Use orthotics for supportive relief from plantar fasciitis - Adhere to stretching and conservative therapeutic measures - Maintain therapy visits for PTSD and anxiety - Utilize monitoring equipment for arrhythmia evaluation per Cardiology - Continue to monitor weight-related changes on current weight management - Follow up as scheduled for continued assessment and management Coding Level of Care Code Est Pt Level 4 (65458) Complex EM visit Add On G2211 Diagnoses Plantar fasciitis, right M72.2 Robbie-Danlos syndrome Q79.60 Thoracic back pain M54.6 Sacroiliac joint pain M53.3 Lumbar spondylosis M47.816 Sacroiliitis M46.1 Opioid contract exists Z79.891
[2024-10-28 13:21] VITALS: BP 146/87; PULSE 89; O2SAT 97; BMI 52.0
[2024-10-28 13:22] VITALS: BP 138/68
== END 2024-10-28 13:40 | disposition home or self-care (01) ==
PROVIDERS: PCP Internal Medicine; Visit Provider Nurse Practitioner Family
DX: M72.2 Plantar fascial fibromatosis (principal); Q79.60 Ehlers-Danlos syndrome, unspecified; M54.6 Pain in thoracic spine; Z79.891 Long term (current) use of opiate analgesic; M53.3 Sacrococcygeal disorders, not elsewhere classified; M47.816 Spondylosis without myelopathy or radiculopathy, lumbar region; M46.1 Sacroiliitis, not elsewhere classified
CPT/HCPCS: 99214; G2211

== ENCOUNTER → 2024-10-28 13:02 | Outpatient (BNVA) | payer MEDICARE, MEDICAID, SELFPAY | PROVIDERS: PCP Internal Medicine; Visit Provider Nurse Practitioner Family | DX: Z51.81 Encounter for therapeutic drug level monitoring (principal); M72.2 Plantar fascial fibromatosis; M54.6 Pain in thoracic spine; M53.3 Sacrococcygeal disorders, not elsewhere classified; M47.816 Spondylosis without myelopathy or radiculopathy, lumbar region; M46.1 Sacroiliitis, not elsewhere classified; Q79.60 Ehlers-Danlos syndrome, unspecified; Z79.891 Long term (current) use of opiate analgesic | CPT/HCPCS: 99212 ==

== ENCOUNTER 2024-12-25 08:31 | Outpatient (AMB) | payer MEDICARE, MEDICAID, SELFPAY ==
--- NOTE | 2024-12-25 08:43 | A.OFFVIS_ITS ---
Vital Signs 12/25/24 08:51 Height 4 ft 11 in Weight 247 lb 2 oz BMI 49.9 BP 157/98 H Blood Pressure Location Lt radial Position Sitting Pulse 70 Pulse Source Pulse Oximeter Pulse Oximetry (%) 98 Oxygen Delivery Method Room Air Intake Visit Reasons: Pill Count Intake Note: Park comes in today for a pill count to tramadol, patient should have 72 tablets and presents with 77 tablets which she last took today 12/25/24 at 7am. 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 Patient is supposed to have #72 pills, in her possession has #77 pills. This demonstrates a responsible attitude in regards to the medication regimen. Patient reports adequate analgesia on current regimen of tramadol 50 mg TID prn daily as needed with no noted side effects. Denies any fever, chills, chest pain, shortness of breaths, constipation, nausea, sedation, dizziness, or urinary retention. Over the past year, she has experienced significant weight loss, which she attributes to Zepbound injections, dietary modifications, and enhanced physical activity. The patient is currently on an initial dose of Zepbound 2.5 mg and experiencing typical side effects such as nausea and sulfur burps when consuming high-fat foods. She also reports occasional constipation managed with dietary adjustments. Additionally, the patient highlights her history of medication sensitivity and Robbie-Danlos syndrome. Her daughter benefits from a family- initiated gluten-free diet, addressing her own gastrointestinal concerns. [facility] Medical History Heart palpitations Asthma Morbid obesity with BMI of 50.0-59.9, adult Sacroiliac joint pain Migraines Robbie-Danlos syndrome Lumbar spondylosis Social History Patient Tobacco Use Status: Former Tobacco user Review of Systems Const All systems reviewed & are unremarkable except as noted in HPI and below Physical Exam Vital Signs: Last Vital Signs Pulse 70 12/25/24 08:51 BP 157/98 H 12/25/24 08:51 Pulse Ox 98 12/25/24 08:51 Oxygen Delivery Method Room Air 12/25/24 08:51 BMI result Body Mass Index 49.9 General: Appears afebrile. Alert and oriented. Mood and affect appropriate. Follows and participates in conversation appropriately. Respiratory effort is unlabored. No cough. Able to transition from sit to stand unassisted. Ambulates with bilaterally normal heel strike and toe off. Extrem General: Yes capillary refill normal, Yes no clubbing, cyanosis or edema and Yes no calf tenderness Psych Appearance: grossly normal and well kempt Mental Status: mental status grossly normal Speech and movement: Normal speech and movement present and Clear speech present Affect: normal affect and Sad affect present Attitude: cooperative Thought process: Normal thought process present Thought content: Normal thought content present, suicidality (none), no hallucinations and Depressive thoughts present Insight: Good insight present (Psych) Judgement: Good judgement present (Psych) Results Reviewed Results Reviewed: XR THORACIC SPINE 09/27/23 CLINICAL INFORMATION: Pain in thoracic spine. FINDINGS: Bony mineralization is normal. There is a mild thoracolumbar levoscoliosis. There are mild T11 and moderate T12 anterior wedge compression fractures. There is Schmorl's node formation at T11-T12 and T12-L1. There is moderate disc space narrowing at T12-L1. The remaining disc spaces are relatively well-maintained. No acute fracture or spondylolisthesis is seen. There is multi-level mild thoracic spondylosis. The posterior elements are intact. The paravertebral soft tissues are unremarkable. IMPRESSION: 1. Mild T11 and moderate T12 anterior wedge compression fractures are seen. 2. There is Schmorl's node formation at T11-T12 and T12-L1. 3. There is moderate degenerative disc disease at T12-L1. 4. There is multi-level mild thoracic spondylosis. 5. There is a mild thoracolumbar levoscoliosis. XR LUMBOSACRAL SPINE 09/27/23 CLINICAL INFORMATION: Lumbar spondylosis without myelopathy or radiculopathy. FINDINGS: Vertebral body heights are normal. At L1-L2, there is Schmorl's node formation. At L5-S1, there is moderately severe disc space narrowing. There are small limbus vertebra seen at the anterior aspects of the L4-L5 and L5-S1 disc spaces. The posterior elements are intact. The paravertebral soft tissues are unremarkable. IMPRESSION: 1. There is moderately severe degenerative disc disease at L5-S1. 2. There is Schmorl's node formation at L1-L2. XR SHOULDER, RIGHT 09/27/23 FINDINGS: Bony alignment and mineralization are normal. The glenohumeral joint is intact and shows moderately severe osteoarthritic change. The acromioclavicular and coracoclavicular intervals are normal. No fracture or dislocation is seen. There is mild calcific tendinitis at the right rotator cuff insertion. No foreign body is seen. There is no right pneumothorax. IMPRESSION: 1. There is moderately severe osteoarthritic change of the right glenohumeral joint. 2. There is mild calcific tendinitis of the right rotator cuff insertion. Right foot xray 09/25/24: No fracture or dislocation. Normal alignment. Normal joint spaces. Plantar calcaneal spur. 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 There is no evidence of misuse, abuse or diversion at this time. [facility] Pres[facility] sent for Tramadol 50 mg TID prn with an advanced date of 01/18/25 with one refill provided. Patient has Narcan at home. Continue daily physical activity, adequate hydration, weight loss, well balanced diet and home exercise program. Patient will continue follow up with her PCP re: uptitration on Zepbound medication and continue regular lab monitoring. Patient reports her most recent A1C=5.7 but insulin was still elevated at 33.4. All questions were answered and the patient is in agreement with the plan. Follow up in 2 months for a pill count or sooner as needed. Patient was informed and verbally consented to the use of an ambient scribe for clinic note documentation during this visit. Medications: Refilled tramadol Partial Fill upon patient request. 50 mg PO TID 30 days PRN 90 tabs 1RF pain M47.816 - Spondylosis without myelopathy or radiculopathy, lumbar region, M53.3 - Sacrococcygeal disorders, not elsewhere classified, Q79.60 - Robbie-Danlos syndrome, unspecified Patient Instructions: - Continue current Zepbound injection dosage per current prescriber, reach out to PCP for further increases. - Avoid high-fat foods to reduce gastrointestinal symptoms. - Engage in regular physical activity as able, such as treadmill or gym exercises. - Maintain a balanced diet with a focus on lean proteins. - Follow family gluten-free dietary practices. - Monitor GI symptoms and use MiraLEX as needed for constipation. - Report any new symptoms or worsening conditions promptly. - Schedule and attend all follow-up appointments as necessary for continuous care. Coding Level of Care Code Est Pt Level 4 (52858) Complex EM visit Add On G2211 Diagnoses Robbie-Danlos syndrome Q79.60 Thoracic back pain M54.6 Sacroiliac joint pain M53.3 Lumbar spondylosis M47.816 Sacroiliitis M46.1 Opioid contract exists Z79.893
--- OUTSIDE RECORDS SUMMARY | 2024-12-25 08:46 | XMS_ITS | Data Portability ---
Author Organization [facility], [address] Address [address] [place] [address] Assessment No assessment recorded. Plan of Treatment Reminders Order Date Submit Date Provider Last Modified By Organization Details Last Modified Time Details Appointments None recorded. Lab None recorded. Referral None recorded. Procedures None recorded. Surgeries None recorded. Imaging None recorded. Medication Orders ofloxacin 0.3 % eye drops 2023 024 [facility] #[id number], [address] [place], [address], 15:05:36 Patient TargetsNo targets recorded. Patient Instructions Encounter Date Encounter Id Patient Instructions Last Modified By Organization Details Last Modified Time 01/13/2024 [id number] You can take ove r the counter tylenol or ibuprofen per package instructions for the pain. See printed instructions. Follow-up with your doctor if no improvement in 3 days. Seek Emergency Medical evaluation for any worsening symptoms. [email or web address] Not available 01/13/2024 15:05:13 Use prescribed antibiotic eye drops or ointment as directed to treat the infection. Apply a warm compress (towel soaked in warm water) to the affected eye 3 to 4 times a day. Do this just before applying medicine to the eye. Use a warm, wet cloth to wipe away crusting of the eyelids in the morning. This is caused by mucus drainage during the night. You may also use saline irrigating solution or artificial tears to rinse away mucus in the eye. Do not put a patch over the eye. Wash your hands before and after touching the infected eye. This is to prevent spreading the infection to the other eye, and to other people. Don't share your towels or washcloths with others. You may use acetaminophen or ibuprofen to control pain, unless another medicine was prescribed. Talk with your healthcare provider before using these medicines if you have chronic liver or kidney disease. Also talk with your provider if you have ever had a stomach ulcer or digestive bleeding. Don't wear contact lenses until your eyes have healed and all symptoms are gone. Follow-up care Follow up with your healthcare provider, or as advised. When to seek medical advice Call your healthcare provider right away if any of these occur: Worsening vision Increasing pain in the eye Increasing swelling or redness of the eyelid Redness spreading around the eye [email or web address] Not available 01/13/2024 15:05:34 Reason for Referral None Reported. Medical Equipment None Reported. Allergies Allergen ID Allergen Name Allergen Category Reaction Reaction Severity Criticality Documentation Date Start Date Code Code System Note Provider Name and Address Organization Details Recorded Time [id number] Substance with sulfonami de structure and antibacte rial mechanism of action (substanc e) medicatio n diarrhea Not available Not available 01/13/2024 [id number] SNOMED TINO Chairez - [facility] 14:23:59 Medications Name Sig Start Date Stop Date Status Note LastModified by Organization Details LastModified Time albuterol sulfate 0.63 mg/3 mL solution for nebulizatio n INHALE 3 ML VIAL VIA NEBULIZER MACHINE EVERY 6-8 HOURS NEEDED DX J45.901 01/12 completed Not Available Not Available Not Available prednisone 10 mg tablet PLEASE SEE ATTACHED FOR DETAILED DIRECTION S 01/12 completed Not Available Not Available Not Available albuterol sulfate 2.5 mg/3 mL (0.083 %) solution for nebulizatio n TAKE 3 ML (2.5 MG TOTAL) BY NEBULIZAT ION EVERY 6 HOURS NEEDED. NOT COVD BY INSURANCE 01/12 completed Not Available Not Available Not Available ofloxacin 0.3 % eye drops INSTILL 1 DROP INTO RIGHT EYE 4 TIMES PER DAY FOR 7 DAYS 2023 active Not Available Not Available Not Avai lable fluconazole 150 mg tablet TAKE 1 TABLET BY MOUTH DIRECTED 01/12 completed Not Available Not Available Not Available hydrocodone 5 mg-acetamin ophen 325 mg tablet TAKE ONE TABLET BY MOUTH TWICE A DAY NEEDED FOR PAIN 01/12 completed Not Available Not Available Not Available prednisone 20 mg tablet TAKE 2 TABLETS BY MOUTH DAILY FOR 4 DAYS active Not Available Not Available No t Available clonazepam 0.5 mg tablet TAKE 1 TABLET BY MOUTH EVERY DAY AT BEDTIME NEEDED active Not Available Not Available No t Available propranolol ER 60 mg capsule,24 hr,extended release TAKE 1 CAPSULE BY MOUTH EVERY DAY FOR 90 DAYS active Not Available Not Available No t Available tramadol 50 mg tablet TAKE 1 TABLET BY MOUTH 3 TIMES A DAY NEEDED FOR PAIN FOR 30 DAYS active Not Available Not Available No t Available doxycycline monohydrate 100 mg capsule TAKE 2 CAPSULES BY MOUTH ONCE FOR 1 DOSE. WITH FOOD.USE RESERVE PILLS FOR FUTURE TICK BITES 01/12 completed Not Available Not Available Not Available prednisone 50 mg tablet TAKE 1 TABLET BY MOUTH DAILY WITH BREAKFAST FOR 5 DAYS. active Not Available Not Available No t Available omeprazole 20 mg capsule,del ayed release TAKE 1 CAPSULE BY MOUTH EVERY DAY active Not Available Not Available No t Available cyanocobala min (vit B-12) 1,000 mcg sublingual tablet DISSOLVE 1 TABLET UNDER THE TONGUE EVERY OTHER DAY 01/12 completed Not Available Not Available Not Available epinephrine 0.3 mg/0.3 mL injection, auto-inject or USE DIRECTED FOR ANAPHYLAX IS THEN CALL 911 active Not Available Not Available No t Available propranolol 20 mg tablet TAKE 1 TABLET BY MOUTH TWICE A DAY FOR 90 DAYS 01/12 completed Not Available Not Available Not Available amoxicillin 875 mg-potassiu m clavulanate 125 mg tablet TAKE 1 TABLET BY MOUTH TWICE A DAY 01/12 completed Not Available Not Available Not Available Ventolin HFA 90 mcg/actuati on aerosol inhaler INHALE 2 PUFFS EVERY 4 TO 6 HOURS NEEDED active Not Available Not Available No t Available Symbicort 80 mcg-4.5 mcg/actuati on HFA aerosol inhaler INHALE 2 PUFFS BY MOUTH TWICE A DAY RINSE MOUTH AFTER USE 01/12 completed Not Available Not Available Not Available levocetiriz ine 5 mg tablet TAKE 1 TABLET BY MOUTH EVERY DAY active Not Available Not Available No t Available melatonin 5 mg tablet TAKE 1 TABLET BY MOUTH ONCE A DAY FOR SLEEP active Not Available Not Available No t Available Breztri Aerosphere 160 mcg-9mcg-4. 8mcg/actuat ion HFA aerosol inhaler TAKE 2 PUFFS BY MOUTH TWICE A DAY active Not Available Not Available No t Available albuterol 90 mcg-budeson mario 80 mcg/actuati on HFA aerosol inhaler Inhale by inhalatio n route. active Not Available Not Available No t Available Vitals Date Recorded Body height Body mass index (BMI) Body weight Oxygen saturation Oxygen saturation in Arterial blood by Pulse oximetry Heart rate Body temperature Systolic blood pressure Diastolic blood pressure Provider Name and Address Organization Details Last Updated DateTime 4 152.4 cm 52.3 kg/m2 050498. 76 g 96 % 96 % 79 /min 98.6 [degF] 126 mm[Hg] 85 mm[Hg] Susie Humphrey PA - [facility] 4 14:22:21 Social History Question Answer Notes LastModified by [employer] ion Details LastModified Time What Is Your Level Of Alcohol Consumption? Occasional Information not available 01/13/2024 Have You Had A Flu Shot This Season? Yes Information no t available 01/13/2024 Have You Had Direct Contact, Or Contact During Intimacy, With Monkeypox Rash, Scabs, Or Body Fluids From A Person With Monkeypox? No Information not available 01/13/2024 What Is Your Relationship Status? Information not available 01/13/2024 Do You Use Any Illicit Or Recreational Drugs? No Information not available 01/13/2024 Have You Recently Traveled Abroad? No Information not available 01/13/2024 Are You Currently In School? Yes Information not available 01/13/2024 Do You Or Have You Ever Used Any Other Forms Of Tobacco Or Nicotine? No Information not available 01/13/2024 Sex: Unknown Functional Status None recorded. Mental Status None recorded. Family History Nothing Reported. Medical History No medical history recorded. Gynecological History Statement/Question Response Date of LMP 11/13/2023 Is there any chance of ? No LMP Definite Obstetrics History GPAL:G 0 P 0 0 0 0 Past Encounters Encounter ID Performer Location Encounter Start Date Encounter Closed Date Diagnosis/Indication Diagnosis SNOMED-CT Code Diagnosis ICD10 Code Diagnosis Note [id number] [address] [address] [address] 11/08/2020 10:01:25 11/08/2020 10:54:[id number] [place] [address] 01/19/2020 09:56:42 01/19/2020 10:55:07 [id number] [address] [place] [address] 11/16/2015 08:36:05 11/16/2015 09:17:16 [id number] [address] [place] [address] 7 06/14/2020 09:11:18 06/14/2020 11:01:[id number] [address] [place] [address] 7 02/08/2018 11:55:46 02/08/2018 12:23:33 [id number] [address] [place] [address] 7 03/23/2019 14:54:40 03/23/2019 15:43:57 [id number] [address] [address] [place] [address] 7 07/09/2017 12:51:45 07/09/2017 13:34:55 [id number] [address] [address] [place] [address] 7 06/14/2020 08:32:12 06/14/2020 14:20:46 [id number] [address] [place] [id number] 7 07/28/2017 09:40:14 07/28/2017 10:09:06 [id number] [address] [place] [id number] 7 07/31/2016 18:36:45 07/31/2016 19:44:38 [id number] [address] [place] [address] 01/11/2020 08:03:23 01/11/2020 08:33:50 [id number] [address] [place] [address] 06/14/2019 10:27:03 06/14/2019 11:44:36 [id number] [address] [place] [address] 07/13/2020 15:24:00 07/13/2020 17:56:15 [id number] [address] [place] [id number] 7 05/02/2020 18:48:38 05/02/2020 19:23:52 [id number] [address] [place] [id number] 7 01/20/2016 19:37:40 01/20/2016 20:35:00 [id number] [address] [place] [id number] 7 08/07/2016 15:19:07 08/07/2016 16:02:44 [id number] [address] [place] [id number] 7 08/20/2020 17:11:12 08/20/2020 18:28:53 [id number] [address] [place] [address] 12/26/2015 15:18:18 12/26/2015 15:24:12 [id number] [address] [place] [address] 06/07/2018 10:56:15 06/07/2018 12:09:58 [id number] [address] [place] [id number] 7 04/28/2018 08:51:33 04/28/2018 09:41:30 [id number] [facility] [address] [place] [id number] 7 11/16/2017 10:04:39 11/16/2017 10:30:51 [id number] [facility] [address] [place] [id number] 7 06/26/2016 11:30:54 06/26/2016 12:32:49 [id number] [facility] [address] [place] [id number] 7 10/08/2018 18:06:19 10/08/2018 19:19:58 [id number] RADHA KHAN [place] [address] [place] [id number] 01/13/2024 13:32:56 01/13/2024 15:45:03 Acute conjunctivitis of right eye [id number] 86211 H10.31 Health Concerns Section Related Observation LastModified by Organization Detai ls LastModified Time None Recorded Concern Status LastModified by Organization Details LastModified Time None Recorded Advance Directives Directive None Recorded Payers Insurance Date Sequence Insurance Name Policy Number Policy Rubin Covered Member ID Rubin Member ID Guarantor Name 01/13/2024 1 [place] [employer] [place] [id number] [place] 04/02/2024 2 [place] Horne [id number] [place] 01/13/2024 [employer] - SPECIALITY CLAIMS (MEDICARE DME REGION A) Park Hines [id number] [place] Notes Date Note Type Note Provider Name and Address Organization Details Recorded Time 01/13/2024 text/html 43 yo female presents with a 1 wk hx of itchy right eye and 1 day hx of redness, swelling, and thick yellow d/c. RADHA KHAN MD [address] [place], [address], [place] - [facility] 01/13/2024 15:11:39 OBGyn Episode No OBEpisode recorded.
--- OUTSIDE RECORDS SUMMARY | 2024-12-25 08:47 | XMS_ITS | Data Portability ---
Author Organization [facility], Home Service Address [address] [place] [address] Assessment Encounter Date Assessment Date Assessment LastModified by Organization Details LastModified Time 10/08/2024 10/08/2024 Patient agreed and verbally consents to this audio and video Telehealth appt via a secure platform [email or web address] Not available 10/08/2024 12:15:38 Plan of Treatment Reminders Order Date Submit Date Provider Last Modified By Organization Details Last Modified Time Details Appointments None recorde dBritney Lab hemoglo bin A1c, QN, blood 2024 025 [facility], [place], [address], 14:56:44 CMP, serum or plasma 2024 025 [facility], [place], [address], 14:56:44 phospho jade, serum or plasma 2024 025 [facility], [place], [address], 5 14:56:44 vitamin D, 25-hydr oxy, total, serum 2024 025 [facility], [place], [address], 14:56:44 PTH (parath yroid hormone ), intact + calcium , serum or plasma 2024 025 [facility], [place], [address], 5 14:56:44 hemoglo bin A1c, QN, blood 2023 024 [facility], [place], [address], 4 12:50:52 CMP, serum or plasma 2023 024 [facility], [place], [address], 4 13:53:31 insulin , serum 2023 024 [facility], [place], [address], 4 00:53:51 CBC w/ auto diff 2023 024 [facility], [place], [address], 4 13:53:30 lipid panel, serum 2023 024 [facility], [place], [address], 4 12:46:13 vitamin D, 25-hydr oxy, total, serum 2023 024 [facility], [place], [address], 4 13:53:30 PTH (parath yroid hormone ), intact, serum or plasma 2023 024 [facility], [place], [address], 4 12:39:[address] referra l 2024 025 [facility] Urogynecologist Scheduling Dept, [address] [place] [address], [address], 5 08:58:16 endocri nology referra l 2024 025 alejandra Abebe MD, [address] [place] [address] [place], [address], 5 08:58:15 podiatr ist referra l 2023 [email or web address] [place] [address] Total Foot [facility], [address] [place], [place] [address], [address], 4 08:17:55 Procedures None recorde d. Surgeries None recorde d. Imaging None recorde d. Medication Orders cephale gypsy 500 mg capsule 2024 025 [facility], [address] [place], [address], 5 10:48:01 Difluca n 150 mg tablet 2024 025 [facility], [address] [place], [address], 5 10:59:22 prednis one 10 mg tablet 2024 025 [facility], [address] [place], [address], 5 12:15:43 omepraz ole 20 mg capsule ,delaye d release 2023 024 [facility], [address] [place], [address], 4 13:55:16 Patient TargetsNo targets recorded. Patient InstructionsNo instructions recorded. Reason for Referral Order Caller Referral for Plan tar fasciitis of right foot ongoing plantar fascitiis of the right foot Referring Physician: Erin Bone, Internal Medicine, Encounter Date: 04/30/2024 Endocrinology Referral for H ypoparathyroidism hypoparathyroidism, developing persistant tonsil + kidney stones on the calcium supplements Referring Physician: Erni Bone, Internal Medicine, Encounter Date: 12/01/2024 Urologist Referral for Chron ic cystitis chronic interstitial cystitis Referring Physician: Erin Bone, Internal Medicine, Encounter Date: 12/01/2024 Results Created Date Observation Date Name Description Value Unit Range Abnormal Flag Note LastModifiedBy Organization Detail LastModifiedTime 03/03/20 19 03/03/2019 MRI, sacru m, w/o contr ast No observ ation record ed. [email or web address] [address], [address], 03/04/2019 08:31:48 03/03/20 19 03/03/2019 US, neck No observ ation record ed. [email or web address] [facility] [address] [place] [address], [address], 03/04/2019 09:01:20 Result Notes None recorded. Problems Name Problem SNOMED Code Status Onset Date Resolution Date Notes Provider Name and Address Organization Details Recorded Time Rupture of rotator cuff of right shoulder 81885691531 395430 Active 2017 Right shoulder s/p repair 2009 Nataly davidson [facility] 8 14:54:44 Recurren t urinary tract infectio n 071889297 Active 2017 IC Nataly davidson [facility] 8 14:55:22 Fibromya lgia 861734604 Active 2017 [facility] 8 14:55:34 Low back pain 506200695 Active 2017 [facility] davidson [facility] 8 14:55:59 Chronic intersti tial cystitis 176598204 Active 2017 Nataly davidson [facility] 8 14:58:07 History of depressi on 715668368 Active 2017 [facility] 14:58:20 Hemorrho ids 91508545 Active 2017 [facility] 8 14:58:32 Irritabl e bowel syndrome 77615252 Active 2017 [facility] 8 14:58:37 Asthma 322107799 Active 2017 [facility] 8 14:58:[address] 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 510011600 Active 2017 Nataly Eliseotae [facility] 8 15:08:37 Impaired fasting glycemia 240027506 Active 2023 TINO DANIELSON [address] [place] [address], [address], [facility] 4 13:44:27 Plantar fasciiti s of right foot 72696844311 915660 Active 2023 TINO DANIELSON [address] [place] [address], [address], [facility] 4 13:50:23 Gastroes ophageal reflux disease 861411224 Active 2023 TINO DANIELSON [address] [place], [address], [facility] 4 13:54:20 Exacerba tion of moderate persiste nt asthma 310248072 Active 2024 TINO DANIELSON [address] [place], [address], [facility] 5 12:13:28 Influenz a caused by Influenz a A virus 969951335 Active 2024 TINO DANIELSON [address] [place] [address], [address], [facility] 5 12:14:02 Expirato ry wheezing 8980562 Active 2024 TINO DANIELSON [address] [place] [address], [address], [facility] 5 12:14:13 Cellulit is of lower limb 762451432 Active 2024 TINO DANIELSON [address] [place] [address], [address], [facility] 5 10:46:45 Calcanea l spur of right foot 02175353589 9100 Active 2024 TINO DANIELSON [address] [place] [address], [address], [facility] 5 10:53:05 Candidia sis of vagina 60946953 Active 2024 TINO DANIELSON [address] [place] [address], [address], [facility] 5 10:58:20 Chronic cystitis 49972013 Active 2024 TINO DANIELSON [address] [place] [address], [address], [facility] 5 15:01:00 Problem Notes None recorded. Procedures Surgical History None recorded. Imaging Results Imaging Date Name Status LastModified by Organiz ation Details LastModified Time 03/03/2019 MRI, sacrum, w/o contrast completed [email or web address] [address], [address], 03/04/2019 08:31:48 03/03/2019 US, neck completed [email or web address] [facility] [address] [place] [address], [address], 03/04/2019 09:01:20 Procedure Notes None recorded. Medical Equipment None Reported. Allergies Allergen ID Allergen Name Allergen Category Reaction Reaction Severity Criticality Documentation Date Start Date Code Code System Note Provider Name and Address Organization Details Recorded Time 2278 Zoloft medicatio n hives Not available Not available 05/01/2018 14926 RxNorm Nataly davidson [facility] Internal [facility] 8 14:47:25 2280 Robaxin medicatio n Not available Not available Not available 05/01/2018 80541 5 RxNorm Natalyrekha davidson [facility] 8 14:47:43 2281 Prozac medicatio n Not available Not available Not available 05/01/2018 16594 RxNorm made depre ssion worse Nataly Eliseotae davidson [facility] 8 14:48:18 2447 Substance with sulfonami de structure and antibacte rial mechanism of action (substanc e) medicatio n diarrhea Not available Not available 06/11/2018 80514 8003 SNOMED Natalyrekha davidson [facility] Internal [facility] 8 11:33:19 3360 clindamyc in Not available diarrhea vomiting Not available Not available Not available 03/26/2019 2582 RxNorm Nataly davidson [facility] Internal [facility] 9 08:58:04 Medications Name Sig Start Date Stop Date Status Note LastModified by Organization Details LastModified Time celecoxib 200 mg capsule 05/03 completed Not Available Not Available Not Available cyclobenzap rine 10 mg tablet 03/26 completed Not Available Not Available Not Available albuterol sulfate 0.63 mg/3 mL solution for nebulizatio n INHALE 3 ML VIAL VIA NEBULIZER MACHINE EVERY 6-8 HOURS NEEDED DX J45.901 active Not Available Not Available No t Available prednisone 10 mg tablet PLEASE SEE ATTACHED FOR DETAILED DIRECTION S active Not Available Not Available No t Available tizanidine 2 mg tablet 03/26 completed Not Available Not Available Not Available clindamycin HCl 300 mg capsule 03/26 completed Not Available Not Available Not Available albuterol sulfate 2.5 mg/3 mL (0.083 %) solution for nebulizatio n TAKE 3 ML (2.5 MG TOTAL) BY NEBULIZAT ION EVERY 6 HOURS NEEDED. NOT COVD BY INSURANCE active Not Available Not Available No t Available azithromyci n 250 mg tablet TAKE 2 TABLETS (500 MG) BY ORAL ROUTE ONCE DAILY FOR 1 DAY THEN 1 TABLET (250 MG) BY ORAL ROUTE ONCE DAILY FOR 4 DAYS 06/11 completed Not Available Not Available Not Available ofloxacin 0.3 % eye drops INSTILL 1 DROP INTO RIGHT EYE 4 TIMES PER DAY FOR 7 DAYS 04/30 completed Not Available Not Available Not Available fluconazole 150 mg tablet TAKE 1 TABLET BY MOUTH EVERY DAY DIRECTED FOR 3 DAYS *HOLD TRAMADOL WHILE ON active Not Available Not Available No t Available metoprolol succinate ER 50 mg tablet,exte nded release 24 hr TAKE 1 TABLET BY MOUTH EVERY DAY FOR 90 DAYS active Not Available Not Available No t Available hydrocodone 5 mg-acetamin ophen 325 mg tablet 04/30 completed Not Available Not Available Not Available Medrol (Rogers) 4 mg tablets in a dose pack 24 mg PO on day 1, then decr. by 4 mg/day x5 days per dose pack instructi ons 06/11 completed Not Available Not Available Not Available prednisone 20 mg tablet TAKE 2 TABLETS BY MOUTH DAILY FOR 4 DAYS 04/30 completed Not Available Not Available Not Available clonazepam 0.5 mg tablet TAKE 1 TABLET BY MOUTH EVERY DAY AT BEDTIME NEEDED active Not Available Not Available No t Available propranolol ER 60 mg capsule,24 hr,extended release TAKE 1 CAPSULE BY MOUTH EVERY DAY FOR 90 DAYS active Not Available Not Available No t Available sulfamethox azole 800 mg-trimetho prim 160 mg tablet 07/08 completed Not Available Not Available Not Available tramadol 50 mg tablet TAKE 1 TABLET BY MOUTH 3 TIMES A DAY NEEDED FOR PAIN FOR 30 DAYS active Not Available Not Available No t Available meclizine 25 mg tablet TAKE 1 TABLET BY MOUTH TWICE A DAY NEEDED FOR DIZZINESS active Not Available Not Available No t Available doxycycline monohydrate 100 mg capsule TAKE 2 CAPSULES BY MOUTH ONCE FOR 1 DOSE. WITH FOOD.USE RESERVE PILLS FOR FUTURE TICK BITES 04/30 completed Not Available Not Available Not Available cephalexin 500 mg capsule TAKE 1 CAPSULE BY MOUTH EVERY 6 HOURS FOR 5 DAYS active Not Available Not Available No t Available ranitidine 150 mg tablet 05/03 completed Not Available Not Available Not Available prednisone 50 mg tablet TAKE 1 TABLET BY MOUTH DAILY WITH BREAKFAST FOR 5 DAYS. 04/30 completed Not Available Not Available Not Available clindamycin phosphate 1 % topical swab 04/30 completed Not Available Not Available Not Available omeprazole 20 mg capsule,del ayed release TAKE 1 CAPSULE BY MOUTH EVERY DAY active Not Available Not Available No t Available cyanocobala min (vit B-12) 1,000 mcg sublingual tablet DISSOLVE 1 TABLET UNDER THE TONGUE EVERY OTHER DAY 04/30 completed Not Available Not Available Not Available mupirocin 2 % topical ointment 07/30 completed Not Available Not Available Not Available epinephrine 0.3 mg/0.3 mL injection, auto-inject or USE DIRECTED FOR ANAPHYLAX IS THEN CALL 911 active Not Available Not Available No t Available Nasonex 50 mcg/actuati on [place] 05/03 completed Not Available Not Available Not Available ondansetron 4 mg disintegrat ing tablet 03/26 completed Not Available Not Available Not Available fluticasone propionate 50 mcg/actuati on nasal spray,suspe nsion USE 1 SQUIRT IN THE NOSTRILS TWICE A DAY active Not Available Not Available No t Available doxycycline hyclate 100 mg tablet Take 1 tablet twice a day by oral route for 10 days. 07/08 completed Not Available Not Available Not Available naproxen 500 mg tablet 09/13 completed Not Available Not Available Not Available amoxicillin 875 mg-potassiu m clavulanate 125 mg tablet TAKE 1 TABLET BY MOUTH TWICE A DAY 04/30 completed Not Available Not Available Not Available Ventolin HFA 90 mcg/actuati on aerosol inhaler INHALE 2 PUFFS EVERY 4 TO 6 HOURS NEEDED active Not Available Not Available No t Available nitrofurant oin monohydrate /macrocryst als 100 mg capsule 05/03 completed Not Available Not Available Not Available Sulfamethox azole-TMP DS Take one tablet by mouth twice a day for 7 days 06/24 completed Not Available Not Available Not Available Bactroban Apply up to 3 times a day 03/26 completed Not Available Not Available Not Available Claritin active Not Available Not Avai lable Not Available Benadryl Take 2 tablets once a day prn 06/11 completed Not Available Not Available Not Available Prilosec Take one tablet prn 04/30 completed Not Available Not Available Not Available Vitamin D3 Take one tablet once a day 04/30 completed Not Available Not Available Not Available active Not Available Not Avai lable Not Available Flovent 2 puffs twice a day prn 04/30 completed Not Available Not Available Not Available Mucinex Take one tablet every 4 hours 06/11 completed Not Available Not Available Not Available Symbicort 80 mcg-4.5 mcg/actuati on HFA aerosol inhaler INHALE 2 PUFFS BY MOUTH TWICE A DAY RINSE MOUTH AFTER USE active Not Available Not Available No t Available levocetiriz ine 5 mg tablet TAKE 1 TABLET BY MOUTH EVERY DAY active Not Available Not Available No t Available Xyzal 04/30 completed Not Available Not Available Not Available melatonin 5 mg tablet TAKE 1 TABLET BY MOUTH ONCE A DAY FOR SLEEP active Not Available Not Available No t Available B12 Take one tablet once a day 04/30 completed Not Available Not Available Not Available Probiotic active Not Available Not Richelle ilable Not Available naloxone 4 mg/actuatio n nasal spray ADMINISTE R 1 SPRAY INTO ONE NOSTRIL. CALL 911. REPEAT AFTER 2-3 MIN IF NO OR MINIMAL RESPONSE active Not Available Not Available No t Available Breztri Aerosphere 160 mcg-9mcg-4. 8mcg/actuat ion HFA aerosol inhaler TAKE 2 PUFFS BY MOUTH TWICE A DAY active Not Available Not Available No t Available Zepbound 2.5 mg/0.5 mL subcutaneou s pen injector INJECT 0.5 ML SUBCUTANE OUSLY ONE TIME PER WEEK active Not Available Not Available No t Available Vitals Date Recorded Body height Body mass index (BMI) Body weight Heart rate Oxygen saturation Oxygen saturation in Arterial blood by Pulse oximetry Systolic blood pressure Diastolic blood pressure Provider Name and Address Organization Details Last Updated DateTime 4 155.58 cm 50.4 kg/m2 530557. 27 g 79 /min 96 % 96 % 128 mm[Hg] 88 mm[Hg] Leila Ring [facility] 4 13:38:02 Date Recorded Body height Body mass index (BMI) Body weight Heart rate Oxygen saturation Oxygen saturation in Arterial blood by Pulse oximetry Systolic blood pressure Diastolic blood pressure Provider Name and Address Organization Details Last Updated DateTime 5 155.58 cm 48.2 kg/m2 203551. 24 g 84 /min 98 % 98 % 122 mm[Hg] 70 mm[Hg] Aime Boone [facility] 5 10:38:28 Date Recorded Body height Body mass index (BMI) Body weight Heart rate Oxygen saturation Oxygen saturation in Arterial blood by Pulse oximetry Systolic blood pressure Diastolic blood pressure Provider Name and Address Organization Details Last Updated DateTime 5 155.58 cm 47.2 kg/m2 565001. 56 g 88 /min 98 % 98 % 124 mm[Hg] 74 mm[Hg] Leila Ring [facility] 5 14:36:44 Date Recorded Body height Body mass index (BMI) Body weight Heart rate Oxygen saturation Oxygen saturation in Arterial blood by Pulse oximetry Systolic blood pressure Diastolic blood pressure Provider Name and Address Organization Details Last Updated DateTime 9 155.58 cm 44.7 kg/m2 850274. 06 g 81 /min 97 % 97 % 108 mm[Hg] 80 mm[Hg] Nataly Rodriguez [facility] 9 09:02:41 Social History Question Answer Notes LastModified by Organizat ion Details LastModified Time Tobacco Smoking Status Former Smoker Not Available [facility] 06/22/2020 03:36:24 What Was The Date Of Your Most Recent Tobacco Screening? 12/01/2024 [email or web address] Information not available 12/01/2024 How Many Years Have You Smoked Tobacco? 6 [id number] Information not available 06/22/2020 Sex: Unknown Functional Status None recorded. Mental Status None recorded. Family History Nothing Reported. Medical History Condition Response Coronary Artery Disease N Other N Gout N Kidney Stones N Blood Diseases N Breast Cancer N Blood Transfusion N Lung Disease N Depression N COPD N Defects or Inherited Disease N Anxiety Disorder N Muscle, Joint, or Bone Problems N Obesity N Vision or Eye Problems N Arthritis N Polyps N Infertility N Mental Disorder N Cancer N Varicosities N Stroke N Endometriosis N Bladder or Kidney Problems N High Cholesterol N Liver Disease N Headaches N Fibromyalgia N Kidney Disease N Allergies/Hayfever N Heart Problems N Hospitalizations N Thyroid Problems N GI Problems N Skin Problems N Eating Disorder N Anemia N MRSA exposure N Constipation N Mental Illness N Ovarian Cancer N Diabetes N Seizures/Epilepsy N Tuberculosis N Congestive Heart Failure (CHF) N Eczema N Diverticulitis N Abuse/Domestic Violence N Asthma N Reflux/GERD N Hepatitis N Heart Disease N Pulmonary Embolism N Hypertension N Osteoporosis N Chicken Pox N Autism Spectrum Disorder (ASD) N Gynecological HistoryNo gynecological history recorded. Obstetrics History GPAL:G 0 P 0 0 0 0 Immunizations Vaccine Type Date Status Note Provider Nam e and Address Organization Details Recorded Time Td (adult) 09/20/19 12 completed Nataly davidson [facility] 06/10/2018 16:07:21 influenza, unspecified formulation 08/25/19 25 completed Leila davidson [facility] 08/26/2024 09:25:45 Pneumococcal conjugate PCV21, polysaccharide TTA957 conjugate, PF 09/03/19 25 completed Leila davidson [facility] 09/05/2024 08:53:09 Influenza, split virus, quadrivalent, preservative 07/28/20 18 completed Nataly davidson [facility] 01/17/2019 14:49:08 Tdap 03/23/20 19 completed Audelia NATALEE Stevenson [address] [place] [address], [address], [facility] 03/26/2019 09:11:09 Influenza, split virus, quadrivalent, preservative 04/17/20 19 completed Nataly davidson [facility] 04/22/2019 09:14:45 Past Encounters Encounter ID Performer Location Encounter Start Date Encounter Closed Date Diagnosis/Indication Diagnosis SNOMED-CT Code Diagnosis ICD10 Code Diagnosis Note [id number] Jose Chauhan [facility] [address] [facility], [place] [address] 05/03/2018 11:30:48 05/03/2018 12:31:25 Sprain of ankle 63404192 S93.401A RICE air cast cane/crutc hes Pain in ri ght lower limb 502349155 M79.604 as above Asthma 295207457 J45.90 9 quiet Increased blood pressure 53743925 R03.0 mildly elevated working on weight continue to monitor [id number] Jose Chauhan [facility] [address] [facility] [place] [address] 05/28/2018 10:48:06 05/28/2018 13:29:31 Asthma 087332431 J45.909 quiet Chronic in terstitial cystitis 380620277 N30.10 Acute asthma 620324751 J 45.901 Candidiasis of vagina 72 922017 B37.3 Gastroesop hageal reflux disease 470086813 K21.9 [id number] Jose Chauhan [facility] [address] [facility],[place] [address] 06/11/2018 11:27:07 06/11/2018 15:16:36 Abscess 338323213 L02.91 helaing well Cellulitis 171881203 L03 .90 healing well f/u if doesn't fully resolve Asthma 103964246 J45.90 9 quiet [id number] Jose Chauhan [facility] [address] [facility], [place] [address] 06/24/2018 10:22:16 06/24/2018 10:54:36 Cellulitis 240083507 L03.90 persists despite bactrim, although improve compared to initial presentati on cellulitis rash was marked and was advised to call if moves past that line f/u 1 week Asthma 255888608 J45.90 9 quiet [id number] Jose Chauhan [facility] [address] [facility], [place] [address] 07/02/2018 14:17:35 07/02/2018 16:45:48 Cellulitis 922669669 L03.90 continue doxy, improving will recheck sunday and consider extending the doxy Asthma 645215663 J45.90 9 quiet [id number] Jose Mayte Chauhan [facility] [address] [facility],[place] [address] 07/08/2018 11:04:23 07/08/2018 12:02:34 Cellulitis 147882661 L03.90 seems to be resolving, will defer further abx and monitor. Asthma 209703063 J45.90 9 quiet [id number] Jose Chauhan [facility] [address] [facility],[place] [address] 07/30/2018 09:26:24 07/30/2018 10:14:12 Adult health examination 374190714 Z00.01 Active or passive immunization 813768531 Z23 Asthma 820939589 J45.90 9 quiet Vitamin D deficiency 347 93669 E55.9 Body mass index 40+ - severely obese 527045976 Z68.42 healthy diet and exercise [id number] Jose Chauhan [facility] [address] [facility],[place] [address] 09/13/2018 11:04:01 09/13/2018 11:45:35 Fall down stairs 089264837 W10.9XXA with injuries as seen below tylenol +/- naproxen sparingly rest, ice, f/u as needed Asthma 099247555 J45.90 9 quiet Low back pain [id number] M54.5 acute on chronic Pain of hip region 15658 002 M25.559 acute due to fall Pain of le ft elbow joint [id number] 3229271 M25.522 acute due to fall Neck pain 84531766 M54.2 acute due fall Jose Chauhan [facility] Internal [facility] [address] [facility],[place] [place] [address] 01/08/2019 10:08:14 01/08/2019 10:33:18 C-reactive protein outside reference range 813905565 R79.82 repeat crp, esr and check cbc and cmp Vitamin D deficiency 347 54843 E55.9 Irritable bowel syndrome 30686816 K58.9 Dysphagia 56010898 R13.1 0 Tick bite 87262334 W57.X XXA [id number] Jose Chauhan [facility] Internal Medicine [address] [place] [address] 01/17/2019 14:35:54 01/17/2019 15:45:43 Lymphadenopathy 29727919 R59.9 C-reactive protein outside reference range 835923970 R79.82 remains elevated Chronic in terstitial cystitis 755936683 N30.10 [id number] Jose Chauhan [facility] Internal Medicine [address] [place] [address] 02/05/2019 10:43:57 02/05/2019 13:37:53 Lymphadenopathy 16484259 R59.9 had to reschedule u/s C-reactive protein outside reference range 001523201 R79.82 remains elevated will r/o cardiac cause Body mass index 40+ - severely obese 445411288 Z68.42 healthy diet and exercise Atypical chest pain 1025 73426 R07.89 right sided and right shoulder probably unlikely cardiac related, but in setting of elevated CRP, obesity and fhx, will r/o [id number] Jose Chauhan [facility] Internal [facility] [address] [place] [address] 03/26/2019 08:47:11 03/26/2019 09:22:14 Laceration of toe 199289307 S91.112A healing well Migraine 65386174 G43.90 9 C-reactive protein outside reference range 548658099 R79.82 remains elevated no cause has been found despite extensive work up will continue to monitor [id number] Jose Chauhan [facility] Internal [facility] [address] [place] [address] 04/30/2024 13:22:55 04/30/2024 14:00:44 Depression screening 500633736 Z13.31 SCREENING NEGATIVE Impaired f asting glycemia 403797712 R73.01 will set up with set up with repeat lab work Hypoparathyroidism 83932 004 E20.0 needs recheck Vitamin D deficiency 347 20135 E55.9 needs recheck Asthma 511675109 J45.20 stable Plantar fa sciitis of right foot 6343477307 7490871 M72.2 will set up with podiatry Gastroesop hageal reflux disease 193434327 K21.9 will set up with omeprazole [id number] [facility] [address] [facility],[place] [address] 10/08/2024 11:24:48 10/08/2024 13:29:41 Exacerbation of moderate persistent asthma 012765074 J45.41 Asthma 403003606 J45.40 stable Influenza caused by Influenza A virus 936498070 J09.X2 Expiratory wheezing 9763 007 R06.2 start pred taper [id number] Jose Chauhan [facility] [address] [facility],[place] [address] 10/28/2024 10:27:13 10/28/2024 11:37:28 Cellulitis of lower limb 219605157 L03.119 right upper medial thigh, started from ingrown hair high risk for abscess formation Impaired f asting glycemia 768874457 R73.01 will set up with set up with repeat lab work Vitamin D deficiency 347 54003 E55.9 needs recheck Asthma 707921197 J45.40 stable Calcaneal spur of right foot 9096242975 59425 M77.31 set up with orthotic Candidiasis of vagina 72 848555 B37.31 will set up with med in case she gets the yeast infection [id number] [facility] [address] [facility],[place] [address] 12/01/2024 14:29:28 12/01/2024 15:29:48 Morbid obesity 482275389 E66.01 working Hypoparathyroidism 77926 004 E20.0 has tonsil stones, most likely related Impaired f asting glycemia 906257464 R73.01 will set up with set up with repeat lab work Kidney stone 00168634 N2 0.0 tonsil stones and kidney stone with the parathyroi d tyler refer back to endocrinol ogist Vitamin D deficiency 347 21668 E55.9 needs recheck Chronic cystitis 0065723 2 N30.20 Health Concerns Section Related Observation LastModified by Organization Detai ls LastModified Time None Recorded Concern Status LastModified by Organization Details LastModified Time None Recorded Advance Directives Directive None Recorded Payers Encounter Date Sequence Insurance Name Policy Number Policy Rubin Covered Member ID Rubin Member ID Guarantor Name 03/26/2019 2 [place] [id number] [place] 03/26/2019 1 [place] [facility] Park Horne [id number] [facility] 04/30/2024 2 [place] H[place] [id number] [facility] 04/30/2024 1 [place] [facility] Park Horne [id number] [facility] 10/08/2024 2 [place] Horne [id number] [facility] 10/08/2024 1 [place] [employer] Park Busbyre [id number] [facility] 10/28/2024 2 [place] Horne [id number] [facility] 10/28/2024 1 [place] [facility] Park Busbyre [id number] [facility] 12/01/2024 2 [place] Horne [id number] [facility] 12/01/2024 1 [place] [facility] Park Busbyre [id number] [facility] Notes Date Note Type Note Provider Name and Address Organization Details Recorded Time 9 text/html cut left 5th toe on metal trash can [facility]. was not started on abx no signs of infection, no sutures. some pain with walking. otherwise healing well. 12 system ROS negative except where noted above- denies: chest pain, palpitations, sob, ankle swelling, visual problems, hearing problems, muscle aches or pains, numbness or tingling extremities, abdominal pain, bowel issues, bladder issues, sexual dysfunction, abnormal bleeding, sx of sinus/respiratory infection , headaches, dizziness/lightheadedne ss, rashes, or nail changes. NATALEE Milner [address], [place], [address], [facility] 03/26/2019 09:15:23 4 text/html Re-establish visit the patient was seen at for dizziness, no specific causes, told her it was because of fluid in the ear, still getting dizzinesssuggested trialng anti-histamine and flonase the patient needs repeat blood work will need a pod referral for her right foot needs refill chart updated suggested looking into new insurance for coverage for CT d/o clinic in [place] seeing if her A1c is diabetic range to start on ozempic for patient otherwise doing will TINO DANIELSON [address] [place], [address], [facility] 04/30/2024 14:00:15 5 text/html c/o uri and asthma exacerbation The patient is participating in this appointment via telemedicine communication with a phone call/video calling service ([employer])The patient consents to use of these platforms in place of an in-person appointment due to either sick symptoms the patient is presenting with or current office closure due to COVID exposure in order to keep our office staff and patients safe The patient presents to the office today with concerns of sick symptoms including cough, congestion, wheezing, acute asthma exacerbation daughter tested positive for Flu Amost likely case she has the same thing based on symptom The symptoms started originally a few days agoThe patient reports exposure to her daughter who has fluThe patient symptoms mainly involves the cough and wheezing Pertinent comorbidities include asthma The patient symptoms are alleviated by n/aThe patient symptoms are exacerbated by activity The patient has tested for COVID-19 and the results was negativemost likely has flu A TINO DANIELSON [address] [place], [address], [facility] 10/08/2024 12:20:51 5 text/html f/u med the patient has her holter monitor placed, will get it off on Thursday the patient has pain management for the tramadol f/u asthma is baseline, resolved from previous infection a few weeks ago IFG, stable recent checkVit D Def, stable recent check was seen at for foot injury, right foot due to dropping a jewellery boxthe patient reports that the noted incidentally heel spur which she has noted has been causing issues for awhile now has a friend would works with orthotics, recommended orthoticwill send referral the patient otherwise is doing well TINO DANIELSON [address] [place], [address], [facility] 10/28/2024 11:00:24 5 text/html 1 mos f/u the patient is doing well overallshe is currently at the 2.5 mg qweek from endowill continue on this for now at this dose from endo/weight management the patient is doing well with her glucose, her levels are usually between 80 and 100 impaired fasting glycemia will continue to monitor recommended referral back to endo given kidney stones and tonsil stones and continued lowered PTH while on supplementation vit D low last time, on supplements will recheck her levels TINO DANIELSON [address] [place], [address], [facility] 12/01/2024 15:03:19 OBGyn Episode No OBEpisode recorded.
[2024-12-25 08:51] VITALS: BP 157/98; PULSE 70; O2SAT 98; BMI 49.9
== END 2024-12-25 09:08 | disposition home or self-care (01) ==
LOC: HO.PMC 08:33
PROVIDERS: PCP Internal Medicine; Referring Provider Internal Medicine; Visit Provider Nurse Practitioner Family
DX: Q79.60 Ehlers-Danlos syndrome, unspecified (principal); M54.6 Pain in thoracic spine; M53.3 Sacrococcygeal disorders, not elsewhere classified; M47.816 Spondylosis without myelopathy or radiculopathy, lumbar region; M46.1 Sacroiliitis, not elsewhere classified; Z79.891 Long term (current) use of opiate analgesic
CPT/HCPCS: 99214; G2211

== ENCOUNTER → 2024-12-25 08:31 | Outpatient (BNVA) | payer MEDICARE, MEDICAID, SELFPAY | PROVIDERS: PCP Internal Medicine; Referring Provider Internal Medicine; Visit Provider Nurse Practitioner Family | DX: Z51.81 Encounter for therapeutic drug level monitoring (principal); Q79.60 Ehlers-Danlos syndrome, unspecified; M54.6 Pain in thoracic spine; M53.3 Sacrococcygeal disorders, not elsewhere classified; M47.816 Spondylosis without myelopathy or radiculopathy, lumbar region; M46.1 Sacroiliitis, not elsewhere classified; Z79.891 Long term (current) use of opiate analgesic | CPT/HCPCS: 99212 ==

== ENCOUNTER 2025-02-02 09:22 | Outpatient (AMB) | payer MEDICARE, MEDICAID, SELFPAY ==
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
[2025-02-02 09:25] VITALS: BP 100/80; PULSE 63; O2SAT 98; BMI 49.9
--- OUTSIDE RECORDS SUMMARY | 2025-02-02 10:08 | XMS_ITS | Data Portability ---
Author Organization [facility], [address] Address [address] [place] [address] Assessment No assessment recorded. Plan of Treatment Reminders Order Date Submit Date Provider Last Modified By Organization Details Last Modified Time Details Appointments None recorded. Lab None recorded. Referral None recorded. Procedures None recorded. Surgeries None recorded. Imaging None recorded. Medication Orders ofloxacin 0.3 % eye drops 2023 024 [facility]/Pharmacy #[id number], [address] [place], [address], 15:05:36 Patient TargetsNo targets recorded. Patient Instructions Encounter Date Encounter Id Patient Instructions Last Modified By Organization Details Last Modified Time 01/13/2024 [id number] You can take ove r the counter tylenol or ibuprofen per package instructions for the pain. See printed instructions. Follow-up with your doctor if no improvement in 3 days. Seek Emergency Medical evaluation for any worsening symptoms. [email or web address] Not available 01/13/2024 15:05:13 Use prescribed antibiotic [...] the eyelid Redness spreading around the eye [id number] Not available 01/13/2024 15:05:34 Reason for Referral None Reported. Medical Equipment None Reported. Allergies Allergen ID Allergen Name Allergen Category Reaction Reaction Severity Criticality Documentation Date Start Date Code Code System Note Provider Name and Address Organization Details Recorded Time 87190922 Substance with sulfonami de structure and antibacte rial mechanism of action (substanc e) medicatio n diarrhea Not available Not available 01/13/2024 15900 8003 SNOMED TINO Chairez - [facility] [...] and Address Organization Details Last Updated DateTime 152.4 cm 52.3 kg/m2 723376. 76 g 96 % 96 % 79 /min 98.6 [degF] 126 mm[Hg] 85 mm[Hg] Susie Humphrey PA - [facility] 14:22:21 Social History Question Answer Notes LastModified by [employer]ROM[employer] Details LastModified Time Have You Had A Flu Shot This Season? Yes Information no t available 01/13/2024 Have You Had Direct Contact, Or Contact During Intimacy, With Monkeypox Rash, Scabs, Or Body Fluids From A Person With Monkeypox? No Information not available 01/13/2024 What Is Your Relationship Status? Information not available 01/13/2024 Have You Recently Traveled Abroad? No Information not available 01/13/2024 Are You Currently In School? Yes Information not available 01/13/2024 Sex: Unknown Functional Status Question Answer Note LastModified by CHROMAom Details LastModified Time Do you use any illicit or recreational drugs? No Information not available 01/13/2024 Do you or have you ever used any other forms of tobacco or nicotine? No Information not available 01/13/2024 What is your level of alcohol consumption? Occasional Information not available 01/13/2024 Mental Status None recorded. Family History Nothing Reported. Medical History No medical history recorded. Gynecological History Statement/Question Response Date of LMP 11/13/2023 Is there any chance of ? No LMP Definite Obstetrics History GPAL:G 0 P 0 0 0 0 Past Encounters Encounter ID Performer Location Encounter Start Date Encounter Closed Date Diagnosis/Indication Diagnosis SNOMED-CT Code Diagnosis ICD10 Code Diagnosis Note [id number] [address] [place] [address] 11/08/2020 10:01:25 11/08/2020 10:54:37 [id number] [place] [address] 01/19/2020 09:56:42 01/19/2020 10:55:07 [id number] [address] [place] [address]82[address] 7 11/16/2015 08:36:05 11/16/2015 09:17:16 [id number] [address] [place] [address] 7 06/14/2020 09:11:18 06/14/2020 11:01:24 [id number] [address] [address] [place] [address] 7 02/08/2018 11:55:46 02/08/2018 12:23:33 [id number] [address] [place] [address]2597[address] 7 03/23/2019 14:54:40 03/23/2019 15:43:57 [id number] [address] [facility] [place] [address] 7 07/09/2017 12:51:45 07/09/2017 13:34:55 [id number] [address] [place] [address] 7 06/14/2020 08:32:12 06/14/2020 14:20:46 [id number] [address] [place] [address] 01214-[address] 7 07/28/2017 09:40:14 07/28/2017 10:09:06 [id number] [address] [address] [place] [address] 7 07/31/2016 18:36:45 07/31/2016 19:44:38 [id number] [address] [place] [address]60[address]373 7 01/11/2020 08:03:23 01/11/2020 08:33:50 [id number] [address] [place] [address] 06/14/2019 10:27:03 06/14/2019 11:44:36 [id number] [address] [place] [address] 07/13/2020 15:24:00 07/13/2020 17:56:15 [id number] [address] [place] [address]58[address] 7 05/02/2020 18:48:38 05/02/2020 19:23:52 [id number] [address] [place] [address] 69465[address] 7 01/20/2016 19:37:40 01/20/2016 20:35:00 [id number] [address] [address] [place] [address]77[address]136 7 08/07/2016 15:19:07 08/07/2016 16:02:44 [id number] [address] [place] [address] 7 08/20/2020 17:11:12 08/20/2020 18:28:53 [id number] [address] [place] [address] 99208[address]782 7 12/26/2015 15:18:18 12/26/2015 15:24:12 [id number] [address] [place] [address] 06/07/2018 10:56:15 06/07/2018 12:09:58 [id number] [address] [address] [place] [address]82[address] 7 04/28/2018 08:51:33 04/28/2018 09:41:[id number] [place] [address] [address] [place] [address]41[address] 7 11/16/2017 10:04:39 11/16/2017 10:30:[id number] [place] [address] [address] [place] [address] 7 06/26/2016 11:30:54 06/26/2016 12:32:[id number] [place] [address] [address] [place] [address] 19549-435 7 10/08/2018 18:06:19 10/08/2018 19:19:58 [id number] RADHA KHAN [place] [address] [place] [address] 87950[address] 7 01/13/2024 13:32:56 01/13/2024 15:45:03 Acute conjunctivitis of right eye [id number] 36662 H10.31 Health Concerns Section Related Observation LastModified by Organization Detai ls LastModified Time None Recorded Concern Status LastModified by Organization Details LastModified Time None Recorded Advance Directives Directive None Recorded Payers Insurance Date Sequence Insurance Name Policy Number Policy Rubin Covered Member ID Rubin Member ID Guarantor Name 01/13/2024 1 [place] [employer] Horne [id number] [place] 04/02/2024 2 [place] Horne [id number] Park [place]orne 01/13/2024 [employer] - SPECIALITY CLAIMS (MEDICARE DME REGION A) Park Hines [id number] Park Horne Notes Date Note Type Note Provider Name and Address Organization Details Recorded Time 01/13/2024 text/html 43 yo female presents with a 1 wk hx of itchy right eye and 1 day hx of redness, swelling, and thick yellow d/c. RADHA KHAN MD [address], [place], [address], [place] - [facility] 01/13/2024 15:11:39 OBGyn Episode No OBEpisode recorded.
== END 2025-02-02 10:28 | disposition home or self-care (01) ==
LOC: HO.ENCR 09:23
PROVIDERS: PCP Internal Medicine; Visit Provider Student in an Organized Health Care Education/Training Program
DX: E20.0 Idiopathic hypoparathyroidism (principal); N20.0 Calculus of kidney
CPT/HCPCS: 99204

== ENCOUNTER → 2025-02-02 09:22 | Outpatient (BNVA) | payer MEDICARE, MEDICAID, SELFPAY | PROVIDERS: PCP Internal Medicine; Visit Provider Student in an Organized Health Care Education/Training Program | DX: E20.0 Idiopathic hypoparathyroidism (principal); N20.0 Calculus of kidney | CPT/HCPCS: 99202 ==

== ENCOUNTER 2025-02-18 13:51 | Outpatient (REF) | payer MEDICARE, MEDICAID, SELFPAY ==
--- NOTE | ~2025-02-18 | US_ITS ---
EXAMINATION: US KIDNEY BILATERAL HISTORY: N20.0 - Calculus of kidney TECHNIQUE: Real-time grayscale ultrasound imaging of the kidneys was performed and images were reviewed. COMPARISON: There are no prior studies available for comparison. FINDINGS: Right kidney: The right kidney measures 12.2 x 4.4 x 6.4 cm. Renal parenchymal echotexture and thickness are normal. There are no masses. There is no hydronephrosis or renal calculi. Left Kidney: The left kidney measures 12.0 x 5.7 x 5.7 cm. Renal parenchymal echotexture and thickness are normal. There are no masses. There is mild hydronephrosis. No calculi are identified. US/US renal BI IMPRESSION: No evidence of nephrolithiasis. Mild left hydronephrosis. If there is clinical concern for ureteral calculi, unenhanced CT could be performed. Electronically signed by: Rick Lynch MD 02/18/2025 03:32 PM EDT
--- OUTSIDE RECORDS SUMMARY | 2025-02-18 14:25 | XMS_ITS | Data Portability ---
Author Organization [facility], [address] Address [address] [place] [address] Assessment No assessment recorded. Plan of Treatment Reminders Order Date Submit Date Provider Last Modified By Organization Details Last Modified Time Details Appointments None recorded. Lab None recorded. Referral None recorded. Procedures None recorded. Surgeries None recorded. Imaging None recorded. Medication Orders ofloxacin 0.3 % eye drops 2023 024 [facility]/Pharmacy #[id number], [address] [place], [address], 15:05:36 Patient TargetsNo targets recorded. Patient Instructions Encounter Date Encounter Id Patient Instructions Last Modified By Organization Details Last Modified Time 01/13/2024 [id number] You can take ove r the counter tylenol or ibuprofen per package instructions for the pain. See printed instructions. Follow-up with your doctor if no improvement in 3 days. Seek Emergency Medical evaluation for any worsening symptoms. [email or web address] Not available 01/13/2024 15:05:13 Use prescribed antibiotic [...] the eyelid Redness spreading around the eye [id number] Not available 01/13/2024 15:05:34 Reason for Referral None Reported. Medical Equipment None Reported. Allergies Allergen ID Allergen Name Allergen Category Reaction Reaction Severity Criticality Documentation Date Start Date Code Code System Note Provider Name and Address Organization Details Recorded Time 87190922 Substance with sulfonami de structure and antibacte rial mechanism of action (substanc e) medicatio n diarrhea Not available Not available 01/13/2024 38508 8003 SNOMED TINO Chairez - [facility] [...] Updated DateTime 4 152.4 cm 52.3 kg/m2 708505. 76 g 96 % 96 % 79 /min 98.6 [degF] 126 mm[Hg] 85 mm[Hg] Susie Humphrey PA - [facility] 4 14:22:21 Social History Question Answer Notes LastModified by [employer] Details LastModified Time Have You Had A [...] Functional Status Question Answer Note LastModified by [employer] Details LastModified Time Do you use any [...] SNOMED-CT Code Diagnosis ICD10 Code Diagnosis Note [id number] [address] [place] [address] 11/08/2020 10:01:25 11/08/2020 10:54:37 [id number] [address] [place] [address]60[address] 7 01/19/2020 09:56:42 01/19/2020 10:55:07 [id number] [address] [place] [address]86[address] 7 11/16/2015 08:36:05 11/16/2015 09:17:16 [id number] [address] [place] [address]39[address] 7 06/14/2020 09:11:18 06/14/2020 11:01:24 [id number] [facility] [address] [place] [address]116[address] 7 02/08/2018 11:55:46 02/08/2018 12:23:33 [id number] [address] [place] [address] 10505[address]441 7 03/23/2019 14:54:40 03/23/2019 15:43:57 [id number] [address] [place] [address] 21880[address]440 7 07/09/2017 12:51:45 07/09/2017 13:34:55 [id number] [address] [place] [address] 63069-302 7 06/14/2020 08:32:12 06/14/2020 14:20:46 [id number] [address] [place] [address] 45121-793 7 07/28/2017 09:40:14 07/28/2017 10:09:06 [id number] [address] [place] [address] 02153-597 7 07/31/2016 18:36:45 07/31/2016 19:44:38 [id number] [address] [place] [address] 18745-946 7 01/11/2020 08:03:23 01/11/2020 08:33:50 [id number] [address] [place] [address] 34406-775 7 06/14/2019 10:27:03 06/14/2019 11:44:36 [id number] [address] [place] [address] 69123-688 7 07/13/2020 15:24:00 07/13/2020 17:56:15 [id number] [address] [address] [place] [address] 69246-879 7 05/02/2020 18:48:38 05/02/2020 19:23:52 [id number] [address] [place] [address] 09733-817 7 01/20/2016 19:37:40 01/20/2016 20:35:00 [id number] [address] [address] [place] [address] 70464-390 7 08/07/2016 15:19:07 08/07/2016 16:02:44 [id number] [address] [address] [place] [address] 65752-972 7 08/20/2020 17:11:12 08/20/2020 18:28:53 [id number] [address] [place] [address] 63283-317 7 12/26/2015 15:18:18 12/26/2015 15:24:12 [id number] [address] [address] [place] [address] 08493-349 7 06/07/2018 10:56:15 06/07/2018 12:09:58 [id number] [facility] [address] [place] [address] 67145-941 7 04/28/2018 08:51:33 04/28/2018 09:41:30 [id number] [facility] [address] [place] [address] 74398-336 7 11/16/2017 10:04:39 11/16/2017 10:30:51 [id number] [facility] [address] [place] [address] 69207-422 7 06/26/2016 11:30:54 06/26/2016 12:32:[id number] [place] [address] [address] [place] [address] 26893-072 7 10/08/2018 18:06:19 10/08/2018 19:19:58 [id number] RADHA KHAN [place] [address] [place] [address]43-709 7 01/13/2024 13:32:56 01/13/2024 15:45:03 Acute conjunctivitis of right eye [id number] 53005 H10.31 Health Concerns Section Related Observation LastModified by Organization Detai ls LastModified Time None Recorded Concern Status LastModified by Organization Details LastModified Time None Recorded Advance Directives Directive None Recorded Payers Insurance Date Sequence Insurance Name Policy Number Policy Rubin Covered Member ID Rubin Member ID Guarantor Name 01/13/2024 1 [place] [employer]orne [id number] [place] 04/02/2024 2 [place] Horne [id number] [place]orne 01/13/2024 [employer] - SPECIALITY CLAIMS (MEDICARE DME REGION A) Park Hines [id number] [place]orne Notes Date Note Type Note Provider Name and Address Organization Details Recorded Time 01/13/2024 text/html 43 yo female presents with a 1 wk hx of itchy right eye and 1 day hx of redness, swelling, and thick yellow d/c. RADHA KHAN MD [address] [facility] [place], [place], [address], [place] - [facility] 01/13/2024 15:11:39 OBGyn Episode No OBEpisode recorded.
== END 2025-02-18 13:52 | disposition home or self-care (01) ==
LOC: HO.US 13:51
PROVIDERS: PCP Internal Medicine; Visit Provider Student in an Organized Health Care Education/Training Program
DX: N20.0 Calculus of kidney (principal); E20.9 Hypoparathyroidism, unspecified
CPT/HCPCS: 76775

== ENCOUNTER → 2025-02-18 13:53 | Outpatient (BNV) | payer MEDICARE, MEDICAID, SELFPAY | PROVIDERS: PCP Internal Medicine; Visit Provider Radiology Diagnostic Radiology | DX: N20.0 Calculus of kidney (principal) | CPT/HCPCS: 76775 ==

== ENCOUNTER 2025-03-26 08:33 | Outpatient (REF) | payer MEDICARE, MEDICAID, SELFPAY ==
--- OUTSIDE RECORDS SUMMARY | 2025-03-26 08:46 | XMS_ITS | Encounter Summary ---
Author Organization [facility] Address [address] [place] [address] Phone Care Team Providers Care Bacteriology Research Assistant Name Role Phone NikolayJose goodrich Hamilton MEAD Primary Care Provider [phone] Encounter Details Date Type Department Care Team (Late st Contact Info) Description 03/23/2025 Transcribe Orders [facility] [address] [place] [address] Erin Bone PA [address] [place] [address] [address] [place] [address] Social History Tobacco Use Types Packs/Day Years [...] on file documented as of this encounter Visit Diagnoses Not on filedocumented in this encounter Care Teams Bacteriology Research Assistant Relationship Specialty Start Date End Date Jose Chauhan DO [address] [place] [address] [email or web address] PCP - General Internal Medicine 12/18/24 documented as of this encounter Additional Source Comments The information contained in this document represents components of the legal health record. It is not the complete legal health record.[facility]
[2025-03-26 11:16] LABS: Albumin Level 4.2 g/dL (3.5-5.0); Anion Gap 11 (12-20); Blood Urea Nitrogen 24 mg/dL (9-16); Calcium 9.0 mg/dL (8.4-10.2); Carbon Dioxide 28 mmol/L (22-29); Chloride 103 mmol/L (96-108); Estimated Glomerular Filt Rate > 60; Magnesium 1.9 mg/dL (1.6-2.6); Potassium 3.8 mmol/L (3.3-5.1); Sodium 138 mmol/L (135-145)
[2025-03-26 11:21] LABS: Creatinine, mg/dL 82.96; Sodium, 24 Hr Urine 118.0 mmol/L
[2025-03-26 11:57] LABS: Parathyroid Hormone Intact 32.6 pg/mL (8.7-77.1)
[2025-03-26 13:12] LABS: Total Volume 24 Hour Urine 1625 mL
[2025-03-27 18:04] LABS: Urea, 24 Hr Urine 17 g/24 h (6-17)
[2025-03-27 18:18] LABS: Calcium/Creatinine Ratio 160 mg/g creat (30-275); Creatinine 24Hr Urine 1.45 g/24 h (0.50-2.15)
[2025-03-30 16:28] LABS: VITAMIN D (1,25 OH) D3 40 pg/mL; Vit D (1,25-Dihydroxy) Total 40 pg/mL (18-72); Vitamin D (1,25 OH) D2 <8 pg/mL
[2025-03-30 20:32] LABS: Collagen Type I C-Telopeptide 201 pg/mL (50-465)
[2025-03-31 14:23] LABS: 24hr Urine Total Volume 1625 mL; Citric Acid, 24hr Urine 544 mg/24 h (100-1300); Citric Acid/Creat Ratio 24U 369 mg/g creat (180-1070); Creatinine, 24U 1.48 g/24 h (0.50-2.15)
[2025-04-01 13:09] LABS: Calcium, Ionized 5.0 mg/dL (4.7-5.5)
[2025-04-02 00:43] LABS: 24hr Urine Total Volume 1625 mL; Oxalic Acid 24 Urine 24.3 mg/24 h (3.6-38.0)
[2025-04-13 19:54] LABS: Cystine 24Hr Urine - Cystine 52 umol/24 h (24-184); Cystine 24Hr Urine - DOB 06/04/1982; Cystine 24Hr Urine - Total Vol 1625 mL
== END 2025-03-26 08:34 | disposition home or self-care (01) ==
LOC: HO.10HDL 08:33
PROVIDERS: Visit Provider Student in an Organized Health Care Education/Training Program
DX: N20.0 Calculus of kidney (principal); E20.9 Hypoparathyroidism, unspecified
CPT/HCPCS: 36415; 80048; 82040; 82131; 82306; 82330; 82340; 82507; 82523; 82652; 83735; 83945; 83970; 84075; 84100; 84300; 84540

== ENCOUNTER 2025-04-06 13:20 | Outpatient (AMB) | payer MEDICARE, MEDICAID, SELFPAY ==
[2025-04-06 13:22] VITALS: BP 104/80; PULSE 79; O2SAT 98; BMI 49.8
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
== END 2025-04-06 13:46 | disposition home or self-care (01) ==
LOC: HO.ENCR 13:20
PROVIDERS: PCP Internal Medicine; Visit Provider Student in an Organized Health Care Education/Training Program
DX: Z87.311 Personal history of (healed) other pathological fracture (principal); Z13.820 Encounter for screening for osteoporosis
CPT/HCPCS: 99213

== ENCOUNTER → 2025-04-06 13:20 | Outpatient (BNVA) | payer MEDICARE, MEDICAID, SELFPAY | PROVIDERS: PCP Internal Medicine; Visit Provider Student in an Organized Health Care Education/Training Program | DX: Z13.820 Encounter for screening for osteoporosis (principal); Z87.311 Personal history of (healed) other pathological fracture | CPT/HCPCS: 99212 ==

== ENCOUNTER 2025-04-28 09:59 | Outpatient (AMB) | payer MEDICARE, MEDICAID, SELFPAY ==
--- OUTSIDE RECORDS SUMMARY | 2022-12-18 13:24 | XMS_ITS | Encounter Summary ---
Author Organization [facility] Address [address] [place] [address] [place] [phone] Phone Care Team Providers Care Kindergarten Instructional Assistant Name Role Phone Devika Ceja DO Primary Care Provide r Encounter Details Date Type Department Care Team (Late st Contact Info) Description 12/18/2022 1:24 PM EDT Hospital Encounter [facility] [address] [place] [address] Cris Richmond CNP [address] [place] [address] [email or web address] Social History Tobacco Use Types Packs/Day Years [...] 08/01/2023 10:49 AM Eryn Moreira, MASSIMO * [place] Suicide Severity Rating Scale (Screener/Recent Self-Report) Question Answer Date of Assessment Author 1. Wish to be (Past 1 Month) No 023 10:49 AM Eryn Moreira RN 2. Non-Specific Active Suici jose Thoughts (Past 1 Month) No 08/01/2023 10:49 AM Nicky Moreira RN 6. Suicidal Behavior (Lifetime) No 3 10:49 AM Eryn Moreira, MASSIMO documented as of this encounter Plan of Treatment Not on file documented as of this encounter Procedures Procedure [...] ossicle. IMPRESSION: No fracture or dislocation. ATTESTATION: I, Stevie Allison as teaching physician, have reviewed theimages for this case and if necessary edited the report originally createdby Andrew Alatorre. Cris Richmond REAL ESTATE ACCOUNTANT IMG XR LOWER EXTREMITY Noemi l Result documented in this encounter Visit Diagnoses Not on filedocumented in this encounter Additional Health Concerns Infection Onset Date Last Indicated Resolved Time CoV-Exposed Comment:Recent close contact documented in the Travel/Symptom Screening Form 08/01/2023 08/12/2023 1:[address] documented as of this encounter Care Teams Kindergarten Instructional Assistant Relationship Specialty Start Date End Date Devika Ceja DO [address] [phone] PCP - General Internal Medicine 06/16/19 12/17/24 documented as of this encounter Additional Source Comments The information contained in this document represents components of the legal health record. It is not the complete legal health record.[facility]
--- OUTSIDE RECORDS SUMMARY | 2024-09-25 17:05 | XMS_ITS | Encounter Summary ---
Author Organization [facility] Address [address] [place] [address] [place] [phone] Phone Care Team Providers Care Toolroom Checker Name Role Phone Devika Ceja DO Primary Care Provide r Encounter Details Date Type Department Care Team (Late st Contact Info) Description 09/25/2024 4:05 PM EST Hospital Encounter [facility] [address] [place] [phone] Lauryn Irwin FNP [address] [place] [phone] [email or web address] Social History Tobacco Use Types Packs/Day Years [...] clinician's provided indication for this examination in Epic: Trauma; books/book shelf fell on foot today distally COMPARISON: None available FINDINGS: No fracture. Normal alignment. Normal joint spaces. Plantar calcaneal spur. Procedure Note Varun Juarez MD - 09/25/2024 XR FOOT 3 OR MORE VIEWS (RIGHT) Referring clinician's provided indication for this examination in Epic:Trauma; books/book shelf fell on foot today distally COMPARISON: None available FINDINGS: No fracture. Normal alignment. Normal joint spaces. Plantar calcanealspur. IMPRESSION: No fracture or dislocation. ATTESTATION: I, Dr. Varun Miller as teaching physician, havereviewed the images for this case and if necessary edited the reportoriginally created by Tayler Pichardo. us Lauryn Irwin ELECTROLESS PLATER IMG XR LOWER EXTREMITY Noemi l Result documented in this encounter Visit Diagnoses Not on filedocumented in this encounter Care Teams Toolroom Checker Relationship Specialty Start Date End Date MarcialDevika DO [address] [facility] 1 [place] [address] PCP - General Internal Medicine 06/16/19 12/17/24 documented as of this encounter Additional Source Comments The information contained in this document represents components of the legal health record. It is not the complete legal health record.[facility]
--- NOTE | 2025-04-28 10:02 | MHC.OFFVIS ---
Vital Signs 04/28/25 10:10 Height 4 ft 11 in Weight 238 lb 2 oz BMI 48.1 BP 143/81 H Blood Pressure Location Lt brachial Position Sitting Pulse 70 Pulse Source Pulse Oximeter Pulse Oximetry (%) 99 Oxygen Delivery Method Room Air Intake Visit Reasons: Pill count Intake Note: Park comes in today for a pill count to tramadol, patient should have 84 tablets and presents with 86 tablets which she last took today 04/28/25 at 6am. Pain today 02/26 Music Composer Required: No Accompanied by: Self / Same As Patient Allergies Sulfa (Sulfonamide Antibiotics) Allergy (Severe, Verified 04/28/25 10:11) Diarrhea sertraline (From Zoloft) Allergy (Unknown, Verified 04/28/25 10:11) unknown valerian root Allergy (Unknown, Uncoded 04/06/25 13:26) unknown Medication List - Last Reconciled 04/28/25 by MIRIAM Medina acetaminophen 1,000 mg (2 x 500 mg) PO BID PRN 30 days albuterol sulfate 90 mcg/actuation (Ventolin HFA) 2 puffs inhalation Q6H PRN erjjymdufi-lewfezxs-egdcxlouui 160-9-4.8 mcg/actuation (Breztri Aerosphere) inhalations inhalation clonazepam 0.5 mg PO DAILY PRN epinephrine IM fluconazole mg PO ONCE fluticasone propionate 50 mcg/actuation 1 spray intranasal BID foot care products As directed L.acidophilus,helvet-B.bifidum 250 million cell (Acidophilus Probiotic Complex) caps PO levocetirizine (Xyzal) 5 mg PO DAILY levocetirizine 5 mg PO DAILY melatonin 5 mg PO DAILY metoprolol succinate ER mg PO DAILY omeprazole 20 mg PO DAILY PNV 93-rgcl-fdyjr vgml-mqsbf-6 30 mg iron-10 mg iron-1 mg caps PO tirzepatide (weight loss) (Zepbound) mg subcut tramadol 50 mg PO TID PRN 30 days HPI Comments Details: Patient presents today for her pill count. 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 Patient is supposed to have #84 pills, in her possession has #86 pills. This demonstrates a responsible attitude in regards to the medication regimen. Patient reports adequate analgesia on current regimen of tramadol 50 mg TID prn daily as needed with no noted side effects. Denies any fever, chills, chest pain, shortness of breaths, constipation, nausea, sedation, dizziness, or urinary retention. Over the past year, she has experienced significant weight loss, which she attributes to Zepbound injections, dietary modifications, and enhanced physical activity. The patient is currently on an initial dose of Zepbound 5 mg and experiencing occasional constipation managed with dietary adjustments. She follows a diet primarily consisting of chicken and salmon, with occasional indulgences in red meat, which she usually avoids due to discomfort. Patient reports she is currently off allergy medications due to allergy testing retake. The patient has a history of moderate to severe L5-S1 disease and arthritis in the lower back, which has been persistent and impacts her daily activities, mobility, work and sleep. 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 Previously, she has tried diagnostic and therapeutic injections for pain relief, but they did not provide long-lasting effects. [facility] Medical History Screening for osteoporosis History of fragility fracture Kidney stones Heart palpitations Asthma Morbid obesity with BMI of 50.0-59.9, adult Sacroiliac joint pain Migraines Robbie-Danlos syndrome Lumbar spondylosis Social History Patient Tobacco Use Status: Former Tobacco user Review of Systems Const Details: - Musculoskeletal: Reports chronic lower back pain, exacerbated by physical activity. - Gastrointestinal: Denies constipation, reports occasional hemorrhoids. - Allergic/Immunologic: Off allergy medication pending retesting, reports nasal congestion due to dust exposure. All systems reviewed & are unremarkable except as noted in HPI and below Physical Exam Vital Signs: Last Vital Signs Pulse 70 04/28/25 10:10 BP 143/81 H 04/28/25 10:10 Pulse Ox 99 04/28/25 10:10 Oxygen Delivery Method Room Air 04/28/25 10:10 BMI result Body Mass Index 48.1 General: Appears afebrile. Alert and oriented. Mood and affect appropriate. Follows and participates in conversation appropriately. Respiratory effort is unlabored. No cough. Able to transition from sit to stand unassisted. Ambulates with bilaterally normal heel strike and toe off. General: Yes no CVA tenderness Back/Spine/Pelvis Back: no CVA tenderness Cervical Spine: cervical ROM normal, cervical muscular tenderness and No Cervical spine tenderness Thoracic/Lumbar Spine: thoracic and lumbar spine normal to inspection, pain with thoraco-lumbar ROM, paraspinal muscle tenderness, thoraco-lumbar ROM limited, No thoracic spinal tenderness and lumbar spinal tenderness (L4-S1) Pelvis: buttock tenderness bilaterally Sacroiliac joints: bilaterally tender to palpation Psych Appearance: grossly normal and well kempt Mental Status: mental status grossly normal Speech and movement: Normal speech and movement present and Clear speech present Affect: normal affect Attitude: cooperative Thought process: Normal thought process present Thought content: Normal thought content present, suicidality (none), no hallucinations and No Depressive thoughts present Insight: Good insight present (Psych) Judgement: Good judgement present (Psych) Results Reviewed Results Reviewed: XR THORACIC SPINE 09/27/23 CLINICAL INFORMATION: Pain in thoracic spine. FINDINGS: Bony mineralization is normal. There is a mild thoracolumbar levoscoliosis. There are mild T11 and moderate T12 anterior wedge compression fractures. There is Schmorl's node formation at T11-T12 and T12-L1. There is moderate disc space narrowing at T12-L1. The remaining disc spaces are relatively well-maintained. No acute fracture or spondylolisthesis is seen. There is multi-level mild thoracic spondylosis. The posterior elements are intact. The paravertebral soft tissues are unremarkable. IMPRESSION: 1. Mild T11 and moderate T12 anterior wedge compression fractures are seen. 2. There is Schmorl's node formation at T11-T12 and T12-L1. 3. There is moderate degenerative disc disease at T12-L1. 4. There is multi-level mild thoracic spondylosis. 5. There is a mild thoracolumbar levoscoliosis. XR LUMBOSACRAL SPINE 09/27/23 CLINICAL INFORMATION: Lumbar spondylosis without myelopathy or radiculopathy. FINDINGS: Vertebral body heights are normal. At L1-L2, there is Schmorl's node formation. At L5-S1, there is moderately severe disc space narrowing. There are small limbus vertebra seen at the anterior aspects of the L4-L5 and L5-S1 disc spaces. The posterior elements are intact. The paravertebral soft tissues are unremarkable. IMPRESSION: 1. There is moderately severe degenerative disc disease at L5-S1. 2. There is Schmorl's node formation at L1-L2. XR SHOULDER, RIGHT 09/27/23 FINDINGS: Bony alignment and mineralization are normal. The glenohumeral joint is intact and shows moderately severe osteoarthritic change. The acromioclavicular and coracoclavicular intervals are normal. No fracture or dislocation is seen. There is mild calcific tendinitis at the right rotator cuff insertion. No foreign body is seen. There is no right pneumothorax. IMPRESSION: 1. There is moderately severe osteoarthritic change of the right glenohumeral joint. 2. There is mild calcific tendinitis of the right rotator cuff insertion. Right foot xray 09/25/24: No fracture or dislocation. Normal alignment. Normal joint spaces. Plantar calcaneal spur. Assessment & Plan Assessment & Plan (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, unspecified Category: Medical (2) Thoracic back pain: Code(s): M54.6 - Pain in thoracic spine Category: Medical (3) Sacroiliac joint pain: Code(s): M53.3 - Sacrococcygeal disorders, not elsewhere classified Category: Medical (4) Lumbar spondylosis: Code(s): M47.816 - Spondylosis without myelopathy or radiculopathy, lumbar region Category: Medical (5) Opioid contract exists: Code(s): Z79.891 - correction (current) use of opiate analgesic Category: Medical (6) Morbid obesity with BMI of 45.0-49.9, adult: Code(s): E66.01 - Morbid (severe) obesity due to excess calories; Z68.42 - Body mass index [BMI] 45.0-49.9, adult Category: Medical Plan Patient has shown accountability for her medication regimen and the pill count was accurate. There is no evidence of misuse, abuse or diversion at this time. [employer]t reviewed. Prescription sent for Tramadol 50 mg TID prn with an advanced date of 05/25/25 with one refill provided. Narcan refill sent today. Given the patient's history of ineffective injections, alternative pain management strategies such as radiofrequency ablation were discussed, but the patient prefers to continue with the current medication for now. The patient is advised to avoid activities that exacerbate her back pain, such as heavy lifting or prolonged bending, and to maintain her current weight loss efforts through diet and exercise. All questions were answered and the patient is in agreement with the plan. Follow up in 2 months for a pill count or sooner as needed. Patient was informed and verbally consented to the use of an ambient scribe for clinic note documentation during this visit. Medications: Refilled tramadol Partial Fill upon patient request. 50 mg PO TID PRN 90 tabs 1RF pain 30 days M47.816 - Spondylosis without myelopathy or radiculopathy, lumbar region, M53.3 - Sacrococcygeal disorders, not elsewhere classified, Q79.60 - Robbie-Danlos syndrome, unspecified naloxone 4 mg/actuation 1 spray intranasal ONCE 2 ea 0RF Z79.891 - correction (current) use of opiate analgesic Coding Level of Care Code Est Pt Level 4 (49250) Complex EM visit Add On G2211 Diagnoses Robbie-Danlos syndrome Q79.60 Thoracic back pain M54.6 Sacroiliac joint pain M53.3 Lumbar spondylosis M47.816 Opioid contract exists Z79.891 Morbid obesity with BMI of 45.0-49.9, adult E66.01; Z68.42
[2025-04-28 10:10] VITALS: BP 143/81; PULSE 70; O2SAT 99; BMI 48.1
--- OUTSIDE RECORDS SUMMARY | 2025-04-28 11:45 | XMS_ITS | Encounter Summary ---
Author Organization [facility] Address [address] [place] [address] [place] [phone] Phone Care Team Providers Care Medical Reimbursement Specialist Name Role Phone Jose Chauhan DO Primary Care Provider [phone] Devika Ceja DO Primary Care Provide r Nikolayjoleen Jose Hamilton DO Primary Care Provider [phone] Encounter Details Date Type Department Care Team (Latest Contact Info) Description 01/08/2019 Transcribe Orders Virtual Department [address] [place] [address] Audelia Stevenson PA-C [address] [place] [address] Dysphagia, unspecified type (Primary Dx) Social History Tobacco Use Types Packs/Day Years Used Date Smoking Tobacco: Former Smokeless Tobacco: Never Comments Unknown Sex and Gender Information Value Date Recorded Sex Assigned at Female 10/20/2020 7:58 AM EST Legal Sex Female 9:19 PM EDT Gender Identity Female 10/20/2020 7:58 AM EST Sexual Orientation Straight 03/16/2023 1: 24 PM EDT documented as of this encounter Plan of Treatment Not on file documented as of this encounter Visit Diagnoses Diagnosis Dysphagia, unspecified type- Primary documented in this encounter Additional Health Concerns Infection Onset Date Last Indicated Resolved Time CoV-Exposed Comment:Recent close contact documented in the Travel/Symptom Screening Form 08/01/2023 08/12/2023 1:[address] documented as of this encounter Care Teams Medical Reimbursement Specialist Relationship Specialty Start Date End Date Jose Chauhan DO [email or web address] PCP - General 06/07/17 06/15/19 Devika Ceja DO [address] [place] [id number] PCP - General Internal Medicine 06/16/19 12/17/24 Jose Chauhan DO [address] [facility] [place] [address] PCP - General Internal Medicine 12/18/24 documented as of this encounter Additional Source Comments The information contained in this document represents components of the legal health record. It is not the complete legal health record.[facility]
--- OUTSIDE RECORDS SUMMARY | 2025-04-28 11:45 | XMS_ITS | Encounter Summary ---
Author Organization [facility] Address [address] [place] [phone] Phone Care Team Providers Care Ux Ui Designer Name Role Phone Jose Chauhan DO Primary Care Provider [phone] Devika Ceja DO Primary Care Provide r Jose Chauhan DO Primary Care Provider Encounter Details Date Type Department Care Team (Latest Contact Info) Description 01/17/2019 Transcribe Orders Virtual Department [address] [place] [address] Audelia Stevenson PA-C [address] [place] [address] Enlarged lymph node (Primary Dx) Social History Tobacco Use Types [...] on file documented as of this encounter Results * US Soft Tissues of Head and Neck (Non-Thyroid) (03/03/2019 2:08 PM EDT) Anatomical Region Laterality Modality Neck, Head Ultrasound 03/03/2019 2:23 PM EDT Impressions 03/03/2019 2:27 PM EDT Lymph node with benign characteristics correlating with palpable lump in upper left neck. This may be the same lymph node demonstrated on 10/19/2015 which does not appear significantly changed. Clinical follow-up recommended. POS - [id number] Narrative 03/03/2019 2:27 PM EDT HISTORY: Palpable lump left upper neck. COMPARISON: Ultrasound neck 10/19/2015 FINDINGS: Correlating with the palpable lump in the upper left side of the neck is a well-circumscribed lentiform shaped hypoechoic mass consistent with a lymph node. This has a prominent fatty hilum. It is wider than tall measuring 15 mm x 10 mm x 6 mm. This may be the same lymph node demonstrated on ultrasound of 10/19/2015. No other masses or lymph nodes demonstrated in this region. Procedure Note Remigio Guerra MD - 03/03/2019 HISTORY: Palpable lump left upper neck. COMPARISON: Ultrasound neck 10/19/2015 FINDINGS: Correlating with the palpable lump in the upper left side of the neck is awell-circumscribed lentiform shaped hypoechoic mass consistent with alymph node. This has a prominent fatty hilum. It is wider than tallmeasuring 15 mm x 10 mm x 6 mm. This may be the same lymph nodedemonstrated on ultrasound of 10/19/2015. No other masses or lymph nodesdemonstrated in this region. IMPRESSION: Lymph node with benign characteristics correlating with palpable lump inupper left neck. This may be the same lymph node demonstrated on10/19/2015 which does not appear significantly changed. Clinicalfollow-up recommended. POS - [id number] Audelia Stevenson PA-C IMG US HEAD/NECK NON THYROID Final Result documented in this encounter Visit Diagnoses Diagnosis Enlarged lymph node- Primary Enlargement of lymph nodes Enlarged lymph node Enlargement of lymph nodes documented in this encounter Additional Health Concerns Infection Onset Date Last Indicated Resolved Time CoV-Exposed Comment:Recent close contact documented in the Travel/Symptom Screening Form 08/01/2023 08/12/2023 1:[address] documented as of this encounter Care Teams Ux Ui Designer Relationship Specialty Start Date End Date Jose Chauhan DO PCP - General 06/07/17 06/15/19 Devika Ceja DO [address] [facility] [address] [place] [address] PCP - General Internal Medicine 06/16/19 12/17/24 Jose Chauhan DO [address] [place] [address] PCP - General Internal Medicine 12/18/24 documented as of this encounter Additional Source Comments The information contained in this document represents components of the legal health record. It is not the complete legal health record.[facility]
--- OUTSIDE RECORDS SUMMARY | 2025-04-28 11:45 | XMS_ITS | Encounter Summary ---
Author Organization [facility] Address [address] [place] [address] Phone Care Team Providers Care Adaptive Physical Educator Name Role Phone Jose Chauhan DO Primary Care Provider [phone] Devika Ceja DO Primary Care Provide r Jose Chauhan DO Primary Care Provider [phone] Reason for Referral * - Closed Specialty Diagnoses / Procedures Referred By Luh mccarthy Referred To Contact Diagnoses Atypical chest pain Procedures Stress Test Exercise Audelia Stevenson PA-C Phone: tel: fax: Referral ID Status Reason Start Date Expiration Date Visits Re quested Visits Authorized [id number] Closed 02/06/2019 02/06/2020 1 1 Encounter Details Date Type Department Care Team (Late st Contact Info) Description 02/06/2019 Ancillary Orders Virtual Department [address] [place] [address] Audelia Stevenson PA-C [address]. Juan Luis. [address] [place] [address] Atypical chest pain Social History Tobacco Use Types Packs/Day Years [...] documented as of this encounter Results * Stress Test Exercise (02/17/2019 11:14 AM EDT) Max BP Systolic 150 mmHg [facility] Max HR 173 BPM [facility] Resting HR 92 BPM [facility] Resting BP Systolic 142 mmHg [facility] Resting BP Diastolic 88 mmHg [facility] Peak METS 10.1 METS [facility] Peak HR 173 BPM [facility] Anatomical Region Laterality Modality Heart Other 02/17/2019 10:2 4 AM EDT 02/17/2019 11:15 AM EDT Narrative 02/18/2019 11:28 PM EDT There was no electrocardiographic evidence of myocardial ischemia at a diagnostic workload. Clinically, this is low risk study. Stress Findings There was no evidence of myocardial ischemia at a diagnostic workload. Clinically, this is a low risk study. Response to Stress The patient exercised for minutes seconds, achieving 10.1 METS at peak exercise. Baseline blood pressure was 142/88 mmHg, and baseline heart rate was 92 bpm. The patient achieved a peak heart rate of 173 bpm, which is% of their maximum predicted heart rate. Patient exercised for 7:12 minutes on a standard Gomez protocol achieving 10.1 METs and 94% MPHR (173 BPM). The test was terminated due to fatigue. SUMMARY: 1. RESTING ECG: Sinus rhythm with non specific ST/T wave abnormalities 2. EXERCISE ECG: No ischemic ECG changes with exercise 3. SYMPTOMS: No chest pain 4. PHYSIOLOGY: Appropriate exercise physiology. Resting heart rate of 92 bpm felicitas to a max heart rate of 173 bpm, this represents 94% MPHR. Resting BP of 142/88 felicitas to a max BP of 150/palp. Vital signs stable and returned to baseline prior to discharge from the lab. Achieved 10.1 METs consistent with fair functional capacity for age. 5. ARRHYTHMIA: Rare isolated PVC CONCLUSION: Normal ECG portion of exercise stress test without ECG changes suggestive of ischemia and without symptoms concerning for angina. Appropriate exercise physiology. Fair functional capacity. Haddad treadmill score of +7 indicating low risk for cardiac events. See attached stress report for full details. Nahum Gleason APRN with Dr. Anthony. November Elva ALEXI CV STRESS ORDERABLES Final R esult documented in this encounter Visit Diagnoses Diagnosis Atypical chest pain Other chest pain Atypical chest pain Other chest pain documented in this encounter Additional Health Concerns Infection Onset Date Last Indicated Resolved Time CoV-Exposed Comment:Recent close contact documented in the Travel/Symptom Screening Form 08/01/2023 08/12/2023 1:[address] documented as of this encounter Care Teams Adaptive Physical Educator Relationship Specialty Start Date End Date Jose Chauhan DO PCP - General 06/07/17 06/15/19 Devika Ceja DO [address] [facility] [address] [place] [address] PCP - General Internal Medicine 06/16/19 12/17/24 Jose Chauhan DO [address] [facility] [place] [address] PCP - General Internal Medicine 12/18/24 documented as of this encounter Additional Source Comments The information contained in this document represents components of the legal health record. It is not the complete legal health record.[facility]
--- OUTSIDE RECORDS SUMMARY | 2025-04-28 11:45 | XMS_ITS | Encounter Summary ---
Author Organization [facility] Address [address] [place] [id number] Phone Care Team Providers Care Flame Cutting Machine Operator Name Role Phone Jose Chauhan DO Primary Care Provider [phone] Devika Ceja DO Primary Care Provide r Jose Chauhan DO Primary Care Provider [phone] Encounter Details Date Type Department Care Team (Late st Contact Info) Description 12/25/2018 Procedure Pass [facility], [address] [address] Social History Tobacco Use Types Packs/Day Years Used Date Smoking Tobacco: Former Smokeless Tobacco: Never Comments Unknown Sex and Gender Information Value Date Recorded Sex Assigned at Female 10/20/2020 7:58 AM EST Legal Sex Female 9:19 PM EDT Gender Identity Female 10/20/2020 7:58 AM EST Sexual Orientation Straight 03/16/2023 1: 24 PM EDT documented as of this encounter Last Filed Vital Signs Vital Sign Reading Time Taken Comments Blood Pressure - - Pulse - - Temperature - - Respiratory Rate - - Oxygen Saturation - - Inhaled Oxygen Concentration - - Weight 90.7 kg (200 lb) 12/25/2018 3:32 PM EDT Height 154.9 cm (5' 1 ) 12/25/2018 3:32 PM EDT Body Mass Index 37.79 12/25/2018 3:32 PM EDT documented in this encounter Plan of Treatment Not on file documented as of this encounter Visit Diagnoses Not on filedocumented in this encounter Additional Health Concerns Infection Onset Date Last Indicated Resolved Time CoV-Exposed Comment:Recent close contact documented in the Travel/Symptom Screening Form 08/01/2023 08/12/2023 1:[address] documented as of this encounter Care Teams Flame Cutting Machine Operator Relationship Specialty Start Date End Date Jose Chauhan DO PCP - General 06/07/17 06/15/19 Devika Ceja DO [address] [address] PCP - General Internal Medicine 06/16/19 12/17/24 Jose Chauhan DO [address] [place] [address] PCP - General Internal Medicine 12/18/24 documented as of this encounter Additional Source Comments The information contained in this document represents components of the legal health record. It is not the complete legal health record.[facility]
--- OUTSIDE RECORDS SUMMARY | 2025-04-28 11:45 | XMS_ITS | Clinical Summary ---
Author Organization [facility] Address [address] [place] [id number] Phone Care Team Providers Care Car Top Bolter Name Role Phone Nikolayjoleen Jose Villasenor DO Primary Care Provider [phone] Allergies Active Allergy Reactions Criticality Noted Date Comments Clindamycin Diarrhea,Vomiting 10/20/2020 Clindamycin Hcl 03/12/2019 Diarrhea and vomitting Fluoxetine Lactose 09/25/2024 Methocarbamol Sertraline Hives Sulfa (Sulfonamide Antibiotics) Nausea and/or Vomiting 01/22/2018 Sulfamethoxazole-Trimet hoprim 09/25/2024 Valerian Root Anaphylaxis High 01/22/2018 Medications albuterol 90 mcg/actuation inhaler 2 puffs as needed 10/19/19 11 Active EPINEPHrine (EPIPEN, ADRENACLICK) 0.3 mg/0.3 mL auto-injector Inject 0.3 mg into the muscle as needed for anaphylaxis. Active clindamycin (CLEOCIN T) 1 % Swab Active omeprazole (PRILOSEC) 20 MG capsule TAKE 1 CAPSULE BY MOUTH EVERY DAY NEEDED 90 capsule 1 11/29/19 22 Active propranoloL (INDERAL) 20 MG immediate release tablet Pt unsure of dose 07/18/20 22 Active acetaminophen (TYLENOL) 500 MG tablet TAKE 2 TABLETS BY MOUTH TWICE A DAY NEEDED FOR PAIN 10/27/19 23 Active levocetirizine (XYZAL) 5 MG tablet 12/13/19 23 Active melatonin 5 mg Tab TAKE 1 TABLET BY MOUTH ONCE A DAY FOR SLEEP*OTC/NOT COVERED* 11/25/19 23 Active clonazePAM (KLONOPIN) 0.5 MG tablet take 1 tablet by mouth everyday at bedtime 01/05/20 23 Active albuterol 2.5 mg /3 mL (0.083 %) nebulizer solution Take 3 mL (2.5 mg total) by nebulization every 6 (six) hours as needed. 60 mL 07/21/20 23 Active BREZTRI AEROSPHERE 160-9-4.8 mcg/actuation inhaler Inhale 2 puffs into the lungs 2 (two) times a day. 10/22/19 24 Active traMADoL (ULTRAM) 50 mg tablet Take 50 mg by mouth every 6 (six) hours as needed for pain (specific location in comments). Active vitamins with ferrous fumarate- folic acid 28 mg iron- 800 mcg Tab Take 1 tablet by mouth daily. Active doxycycline monohydrate (MONODOX) 100 MG capsule prn 11/27/19 24 Active fluticasone propionate (FLONASE) 50 mcg/actuation nasal spray USE 1 SQUIRT IN THE NOSTRILS TWICE A DAY 08/10/20 24 Active metoprolol succinate (TOPROL-XL) 50 MG 24 hr tablet Take 1 tablet by mouth every morning. 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 She will continue to use the clindamycin cream and if no better in 48 hours she will start 500 mg of cephalexin 4 times daily. Acute meniscal tear of left knee 07/01/2019 Assessment & Plan (07/01/2019 3:48 PM EST): Clinically improved. Reviewed MRI indicating linear tear of the medial meniscus. The joint does not appear unstable. I do not think this is an operative case but she will see an orthopedics pediatric physician. Left knee pain 06/26/2019 Contusion of left knee 06/16/2019 Assessment & Plan (06/16/2019 10:27 AM EDT): With her hypermobility syndrome and history of hyperextension injury and with some bloody fluid on synovial draw, I feel that we should get an MRI to rule out internal derangement. I discussed this with her today. She will use ice, partial weightbearing, pain medication as needed, and I will get back to her and make appropriate referrals after MRI. In addition synovial fluid was sent out for diagnostics. All questions were answered. Cellulitis 03/12/2019 Assessment & Plan (03/12/2019 9:37 AM EDT): Finishing up treatment now for cellulitis in her left groin. This is the third bout of cellulitis. I am referring her to dermatology. Spinal enthesopathy of lumbar region 10/25/2018 Assessment & Plan (10/25/2018 9:16 AM EST): Acute flare of left lower back pain and her enthesopathic process with intermittent radiculopathy. Reviewed 2014 MRI of lumbar spine showing mild degenerative changes without spondylolisthesis, fracture, or herniated disc. We will do injection therapy today and switch her muscle relaxant to 2 mg of tizanidine every 8 hours as needed. Other medications unchanged. Follow-up phone call 72 hours. Consider MRI if radicular symptoms worsen. Acute left-sided low back pain without sciatica 09/12/2018 Assessment & Plan (12/25/2018 10:04 AM EDT): X-rays points of the left sacroiliac joint is the source of pain. She is tender over the area and there is evidence of subchondral sclerosis but no erosions. MRI will be done to further elucidate this. She will be referred to Dr. Morgan for a fluoroscopically guided sacroiliac joint injection. A repeat C-reactive protein as well as an HLA-B27 will be done to see if she has an underlying seronegative spondyloarthropathy. Hydrocodone Renewed today. No visits with results within 3 Month(s) from this visit. Latest known visit with results is: Hospital Outpatient Visit on 07/04/2018 Component Date Value Ref Range Status IGG 1 07/04/2018 716 341 - 894 mg/dL Final IGG 2 07/04/2018 463 171 - 632 mg/dl Final IGG 3 07/04/2018 48.9 18.4 - 106.0 mg/dl Final IGG 4 07/04/2018 28.9 2.4 - 121.0 mg/dl Final TOTAL IGG 07/04/2018 1,380 767 - 1,590 mg/dl Final IMMUNOGLOBULIN M 07/04/2018 133 40 - 230 mg/dL Final IMMUNOGLOBULIN G 07/04/2018 1,233 700 - 1,600 mg/dL Final IGE 07/04/2018 20.1 <=214 kU/L Final IgA 07/04/2018 289 70 - 400 mg/dL Final .lastx Ecchymosis 09/12/2018 Left carpal tunnel syndrome 07/04/2018 Assessment & Plan (07/04/2018 10:54 AM EST): Exam consistent with left carpal tunnel syndrome. She will wear a night wrist splint for the next 3 weeks and then call me and consider a carpal tunnel injection if necessary. Anserine bursitis 05/23/2018 Assessment & Plan (05/23/2018 11:50 AM EDT): Patient presents with an acute right anserine bursitis after a traumatic right ankle injury which will be injected with cortisone today. The ankle injury will continue to be treated by the quality assurance lead with elevation and an ankle support she may continue to use the hydrocodone as needed. 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 Dietary discretion, low impact weightbearing exercise, low inflammatory diet are all recommended for this patient who has a chronic painful syndrome. No visits with results within 3 Month(s) from this visit. Latest known visit with results is: Hospital Outpatient Visit on 10/25/2020 Component Date Value Ref Range Status WBC 10/25/2020 12.31* 4.00 - 11.00 K/uL Final RBC 10/25/2020 4.90 3.72 - 5.30 M/uL Final HGB 10/25/2020 12.8 10.6 - 15.5 g/dL Final HCT 10/25/2020 39.7 32.0 - 45.0 % Final PLT 10/25/2020 394 140 - 430 K/uL Final MCV 10/25/2020 81.0 78.0 - 97.0 fL Final MCH 10/25/2020 26.1 25.0 - 33.0 pg Final MCHC 10/25/2020 32.2 32.0 - 36.0 g/dL Final RDW 10/25/2020 14.1 11.0 - 16.0 % Final MPV 10/25/2020 12.3 8.4 - 12.8 fl Final NRBC 10/25/2020 0.00 0 /100 WBCs Final ABSOLUTE NRBC 10/25/2020 0.00 0 K/uL Final DIFF METHOD 10/25/2020 Auto Final NEUTS 10/25/2020 68.3 43.0 - 75.0 % Final LYMPHS 10/25/2020 23.1 18.2 - 47.4 % Final MONOS 10/25/2020 6.5 4.00 - 11.00 % Final EOS 10/25/2020 1.4 0.0 - 8.0 % Final BASOS 10/25/2020 0.3 0.0 - 2.0 % Final Granulocytes, immature (%) 10/25/2020 0.4 0.0 - 0.9 % Final ABSOLUTE NEUTS 10/25/2020 8.41* 1.80 - 7.70 K/uL Final ABSOLUTE LYMPHS 10/25/2020 2.84 1.00 - 3.10 K/uL Final ABSOLUTE MONOS 10/25/2020 0.80 0.20 - 0.80 K/uL Final ABSOLUTE EOS 10/25/2020 0.17 0.00 - 0.80 K/uL Final ABSOLUTE BASOS 10/25/2020 0.04 0.00 - 0.09 K/uL Final Granulocytes, immature 10/25/2020 0.05 0.00 - 0.05 K/uL Final TSH 10/25/2020 0.99 0.27 - 4.20 uIU/mL Final 25 OH VIT D (TOTAL) 10/25/2020 37 30 - 60 ng/mL Final VITAMIN B12 10/25/2020 599 232 - 1,245 pg/mL Final C REACTIVE PROTEIN 10/25/2020 26.9* 0.0 - 4.0 mg/L Final HEMOGLOBIN A1C 10/25/2020 5.6 4.3 - 5.8 % Final SODIUM 10/25/2020 136 133 - 146 mmol/L Final POTASSIUM 10/25/2020 4.3 3.3 - 5.1 mmol/L Final CHLORIDE 10/25/2020 101 96 - 108 mmol/L Final CO2 10/25/2020 26 21 - 35 mmol/L Final BUN 10/25/2020 17 6 - 19 mg/dL Final CREATININE 10/25/2020 0.70 0.5 - 1.5 mg/dL Final GLUCOSE 10/25/2020 93 70 - 99 mg/dL Final ALBUMIN 10/25/2020 4.0 3.9 - 4.8 g/dL Final TOTAL PROTEIN 10/25/2020 7.5 6.5 - 8.0 g/dL Final CALCIUM 10/25/2020 9.1 8.4 - 10.3 mg/dL Final ALKALINE PHOSPHATASE 10/25/2020 76 39 - 117 U/L Final TOTAL BILIRUBIN 10/25/2020 0.4 0.0 - 1.2 mg/dL Final AST 10/25/2020 20 0 - 37 U/L Final ALT 10/25/2020 12 0 - 40 U/L Final GLOBULIN 10/25/2020 3.5 1 - 4.8 g/dL Final EGFR 10/25/2020 110 >59 mL/min/1.73m2 Final Estimated glomerular filtration rate calculated using the CKD-EPI equation. ANION GAP 10/25/2020 13 10 - 20 mmol/L Final Assessment & Plan (10/20/2020 9:15 AM EST): General stiffness will be treated with continuance of Flexeril and hydrocodone. Lab work is scheduled. I will call her with these results. There is a family history of diabetes and she does have vitamin B12 deficiency. We will be checking these numbers. I strongly advise a low impact cardiovascular exercise program which she will begin. Assessment & Plan (07/01/2019 3:48 PM EST): Joint protective measures, weight reduction, current medications as prescribed. No evidence for inflammatory arthritis or other collagen vascular disorder. Assessment & Plan (03/12/2019 9:36 AM EDT): Patient's diffuse benign hypermobility syndrome causes chronic pain and I believe premature osteoarthritis. Though her C-reactive protein is elevated I do not believe that it reflects an ongoing inflammatory arthropathy. I do not think she is a candidate for biologic treatment as there is really very little evidence to suggest seronegative spondyloarthropathy or sacroiliitis. We talked about pain management with a combination of CBD for anxiety as well as low-dose 5 mg THC at bedtime for better sleep. She may continue to use 5 mg hydrocodone tablets as needed. Core strengthening, weight reduction, consideration of acupuncture all discussed today. Lab work reviewed. Hospital Outpatient Visit on 02/21/2019 Component Date Value Ref Range Status CRP, HIGH SENSITIVITY 02/21/2019 34.7* 0.0 - 5.0 mg/L Final Comment: Interpretation: hsCRP level (mg/L) Relative Risk <1.0 Low 1.0 - 3.0 Average >3.0 High Neonates (0-3 weeks): 0.1 - 4.1 mg/L Children (2 months - 15 years): 0.1 - 2.8 mg/L Hospital Outpatient Visit on 02/17/2019 Component Date Value Ref Range Status Max BP Systolic 02/17/2019 150 mmHg Final Max HR 02/17/2019 173 BPM Final Resting HR 02/17/2019 92 BPM Final Resting BP Systolic 02/17/2019 142 mmHg Final Resting BP Diastolic 02/17/2019 88 mmHg Final Peak METS 02/17/2019 10.1 METS Final Peak HR 02/17/2019 173 BPM Final Hospital Outpatient Visit on 01/30/2019 Component Date Value Ref Range Status VITAMIN B12 01/30/2019 >2000* 232 - 1245 pg/mL Final 25 OH VIT D (TOTAL) 01/30/2019 34 30 - 60 ng/mL Final FREE T4 01/30/2019 1.0 0.9 - 1.7 ng/dL Final THYROPEROXIDASE AB, S 01/30/2019 1.5 <9.0 IU/mL Final TSH 01/30/2019 0.93 0.27 - 4.20 uIU/mL Final HCV 01/30/2019 Negative Negative Final Comment: This is a screening test and should be confirmed with molecular testing Hospital Outpatient Visit on 01/08/2019 Component Date Value Ref Range Status SODIUM 01/08/2019 139 133 - 146 mmol/L Final POTASSIUM 01/08/2019 3.9 3.3 - 5.1 mmol/L Final CHLORIDE 01/08/2019 101 96 - 108 mmol/L Final CO2 01/08/2019 25 21 - 35 mmol/L Final BUN 01/08/2019 17 6 - 19 mg/dL Final CREATININE 01/08/2019 0.70 0.5 - 1.5 mg/dL Final GLUCOSE 01/08/2019 93 70 - 99 mg/dL Final ALBUMIN 01/08/2019 3.9 3.9 - 4.8 g/dL Final TOTAL PROTEIN 01/08/2019 7.5 6.5 - 8.0 g/dL Final CALCIUM 01/08/2019 9.4 8.4 - 10.3 mg/dL Final ALKALINE PHOSPHATASE 01/08/2019 79 39 - 117 U/L Final TOTAL BILIRUBIN 01/08/2019 0.3 0.0 - 1.2 mg/dL Final AST 01/08/2019 16 0 - 37 U/L Final ALT 01/08/2019 11 0 - 40 U/L Final GLOBULIN 01/08/2019 3.6 1 - 4.8 g/dL Final EGFR 01/08/2019 111 >59 mL/min/1.73m2 Final If patient is black, multiply result by 1.159. Estimated glomerular filtration rate calculated using the CKD-EPI equation. ANION GAP 01/08/2019 17 10 - 20 mmol/L Final WBC 01/08/2019 8.65 3.40 - 11.20 K/uL Final RBC 01/08/2019 4.45 3.80 - 4.80 M/uL Final HGB 01/08/2019 11.8* 12.0 - 15.0 g/dL Final HCT 01/08/2019 36.1 36.0 - 46.0 % Final PLT 01/08/2019 384 130 - 400 K/uL Final MCV 01/08/2019 81.1 79.0 - 98.0 fL Final MCH 01/08/2019 26.5* 27.0 - 34.8 pg Final MCHC 01/08/2019 32.7 31.5 - 36.0 g/dL Final RDW 01/08/2019 13.9 10.8 - 14.6 % Final MPV 01/08/2019 11.7 9.4 - 12.4 fl Final NRBC 01/08/2019 0.00 0.00 /100 WBCs Final ABSOLUTE NRBC 01/08/2019 0.00 0.00 K/uL Final DIFF METHOD 01/08/2019 Auto Final NEUTS 01/08/2019 68.0 45.30 - 77.70 % Final LYMPHS 01/08/2019 22.9 12.30 - 39.70 % Final MONOS 01/08/2019 7.5 4.10 - 12.80 % Final EOS 01/08/2019 0.9 0 - 7.2 % Final BASOS 01/08/2019 0.5 0 - 2.80 % Final Granulocytes, immature (%) 01/08/2019 0.2 0.0 - 0.9 % Final ABSOLUTE NEUTS 01/08/2019 5.88 1.40 - 7.70 K/uL Final ABSOLUTE LYMPHS 01/08/2019 1.98 0.60 - 3.20 K/uL Final ABSOLUTE MONOS 01/08/2019 0.65* 0.11 - 0.59 K/uL Final ABSOLUTE EOS 01/08/2019 0.08 0.01 - 0.50 K/uL Final ABSOLUTE BASOS 01/08/2019 0.04 0.00 - 0.08 K/uL Final Granulocytes, immature 01/08/2019 0.02 0.00 - 0.05 K/uL Final ESR 01/08/2019 26* 0 - 20 mm/h Final CRP, HIGH SENSITIVITY 01/08/2019 36.1* 0.0 - 5.0 mg/L Final Comment: Interpretation: hsCRP level (mg/L) Relative Risk <1.0 Low 1.0 - 3.0 Average >3.0 High Neonates (0-3 weeks): 0.1 - 4.1 mg/L Children (2 months - 15 years): 0.1 - 2.8 mg/L Babesia microti IgG 01/08/2019 <1:64 <1:64 titer Final Comment: (NOTE) ADDITIONAL INFORMATION This test was developed using an analyte specific reagent. Its performance characteristics were determined by [facility] in a manner consistent with CLIA requirements. This test has not been cleared or approved by the U.S. Food and Drug Administration. QFVR PHASE I IGG 01/08/2019 <1:16 <1:16 Final QFVR PHASE II IGG 01/08/2019 <1:16 <1:16 Final QFVR PHASE I IGM 01/08/2019 <1:16 <1:16 Final QFVR PHASE II IGM 01/08/2019 <1:16 <1:16 Final Q FEVER INTERP 01/08/2019 SEE NOTE Final Comment: (NOTE) Negative. No antibody detected. This result is seen in persons with either no previous C. burnetii infection or with early infection. If early acute Q-fever infection is suspected, obtain a second serum sample 2-3 weeks later and retest. EHRLICHIA CHAFF ([facility]) AB, IGG 01/08/2019 <1:64 <1:64 TITER Final Comment: (NOTE) ADDITIONAL INFORMATION This test was developed using an analyte specific reagent. Its performance characteristics were determined by [facility] in a manner consistent with CLIA requirements. This test has not been cleared or approved by the U.S. Food and Drug Administration. Lyme AB IgG 01/08/2019 Negative Negative Final Lyme AB IgM 01/08/2019 Negative Negative Final Hospital Outpatient Visit on 12/25/2018 Component Date Value Ref Range Status HLA-B27 RESULT 12/25/2018 Negative Not Applicable Final INTERPRETATION 12/25/2018 SEE NOTE Final Comment: (NOTE) HLA-B27 antigen was not detected. ADDITIONAL INFORMATION Method: Flow Cytometry Performing Laboratory CLIA# [id number] C REACTIVE PROTEIN 12/25/2018 32.5* 0.0 - 4.0 mg/L Final Assessment & Plan (01/30/2019 12:03 PM EDT): Inability to lose weight after concerted effort at moderate exercise and caloric restriction needs further work-up which in this case will include full set of thyroid functions and thyroid antibodies. I will get back to her by phone call. Her benign hypermobility disorder causes chronic recurrent pain and may lead towards more progressive osteoarthritis. Weight reduction and if necessary consultation with a instrumentation chemist, and appropriate structured home exercise program may all be helpful here to retard progression of joint disease. Work-up for inflammatory arthritis or collagen vascular disorder was entirely unremarkable. Hospital Outpatient Visit on 01/08/2019 Component Date Value Ref Range Status SODIUM 01/08/2019 139 133 - 146 mmol/L Final POTASSIUM 01/08/2019 3.9 3.3 - 5.1 mmol/L Final CHLORIDE 01/08/2019 101 96 - 108 mmol/L Final CO2 01/08/2019 25 21 - 35 mmol/L Final BUN 01/08/2019 17 6 - 19 mg/dL Final CREATININE 01/08/2019 0.70 0.5 - 1.5 mg/dL Final GLUCOSE 01/08/2019 93 70 - 99 mg/dL Final ALBUMIN 01/08/2019 3.9 3.9 - 4.8 g/dL Final TOTAL PROTEIN 01/08/2019 7.5 6.5 - 8.0 g/dL Final CALCIUM 01/08/2019 9.4 8.4 - 10.3 mg/dL Final ALKALINE PHOSPHATASE 01/08/2019 79 39 - 117 U/L Final TOTAL BILIRUBIN 01/08/2019 0.3 0.0 - 1.2 mg/dL Final AST 01/08/2019 16 0 - 37 U/L Final ALT 01/08/2019 11 0 - 40 U/L Final GLOBULIN 01/08/2019 3.6 1 - 4.8 g/dL Final EGFR 01/08/2019 111 >59 mL/min/1.73m2 Final If patient is black, multiply result by 1.159. Estimated glomerular filtration rate calculated using the CKD-EPI equation. ANION GAP 01/08/2019 17 10 - 20 mmol/L Final WBC 01/08/2019 8.65 3.40 - 11.20 K/uL Final RBC 01/08/2019 4.45 3.80 - 4.80 M/uL Final HGB 01/08/2019 11.8* 12.0 - 15.0 g/dL Final HCT 01/08/2019 36.1 36.0 - 46.0 % Final PLT 01/08/2019 384 130 - 400 K/uL Final MCV 01/08/2019 81.1 79.0 - 98.0 fL Final MCH 01/08/2019 26.5* 27.0 - 34.8 pg Final MCHC 01/08/2019 32.7 31.5 - 36.0 g/dL Final RDW 01/08/2019 13.9 10.8 - 14.6 % Final MPV 01/08/2019 11.7 9.4 - 12.4 fl Final NRBC 01/08/2019 0.00 0.00 /100 WBCs Final ABSOLUTE NRBC 01/08/2019 0.00 0.00 K/uL Final DIFF METHOD 01/08/2019 Auto Final NEUTS 01/08/2019 68.0 45.30 - 77.70 % Final LYMPHS 01/08/2019 22.9 12.30 - 39.70 % Final MONOS 01/08/2019 7.5 4.10 - 12.80 % Final EOS 01/08/2019 0.9 0 - 7.2 % Final BASOS 01/08/2019 0.5 0 - 2.80 % Final Granulocytes, immature (%) 01/08/2019 0.2 0.0 - 0.9 % Final ABSOLUTE NEUTS 01/08/2019 5.88 1.40 - 7.70 K/uL Final ABSOLUTE LYMPHS 01/08/2019 1.98 0.60 - 3.20 K/uL Final ABSOLUTE MONOS 01/08/2019 0.65* 0.11 - 0.59 K/uL Final ABSOLUTE EOS 01/08/2019 0.08 0.01 - 0.50 K/uL Final ABSOLUTE BASOS 01/08/2019 0.04 0.00 - 0.08 K/uL Final Granulocytes, immature 01/08/2019 0.02 0.00 - 0.05 K/uL Final ESR 01/08/2019 26* 0 - 20 mm/h Final CRP, HIGH SENSITIVITY 01/08/2019 36.1* 0.0 - 5.0 mg/L Final Comment: Interpretation: hsCRP level (mg/L) Relative Risk <1.0 Low 1.0 - 3.0 Average >3.0 High Neonates (0-3 weeks): 0.1 - 4.1 mg/L Children (2 months - 15 years): 0.1 - 2.8 mg/L Babesia microti IgG 01/08/2019 <1:64 <1:64 titer Final Comment: (NOTE) ADDITIONAL INFORMATION This test was developed using an analyte specific reagent. Its performance characteristics were determined by [facility] in a manner consistent with CLIA requirements. This test has not been cleared or approved by the U.S. Food and Drug Administration. QFVR PHASE I IGG 01/08/2019 <1:16 <1:16 Final QFVR PHASE II IGG 01/08/2019 <1:16 <1:16 Final QFVR PHASE I IGM 01/08/2019 <1:16 <1:16 Final QFVR PHASE II IGM 01/08/2019 <1:16 <1:16 Final Q FEVER INTERP 01/08/2019 SEE NOTE Final Comment: (NOTE) Negative. No antibody detected. This result is seen in persons with either no previous C. burnetii infection or with early infection. If early acute Q-fever infection is suspected, obtain a second serum sample 2-3 weeks later and retest. EHRLICHIA CHAFF (HME) AB, IGG 01/08/2019 <1:64 <1:64 TITER Final Comment: (NOTE) ADDITIONAL INFORMATION This test was developed using an analyte specific reagent. Its performance characteristics were determined by [facility] in a manner consistent with CLIA requirements. This test has not been cleared or approved by the U.S. Food and Drug Administration. Lyme AB IgG 01/08/2019 Negative Negative Final Lyme AB IgM 01/08/2019 Negative Negative Final Hospital Outpatient Visit on 12/25/2018 Component Date Value Ref Range Status HLA-B27 RESULT 12/25/2018 Negative Not Applicable Final INTERPRETATION 12/25/2018 SEE NOTE Final Comment: (NOTE) HLA-B27 antigen was not detected. ADDITIONAL INFORMATION Method: Flow Cytometry Performing Laboratory CLIA# [id number] C REACTIVE PROTEIN 12/25/2018 32.5* 0.0 - 4.0 mg/L Final As I discussed with her today, unclear etiology for persistent elevation of C-reactive protein but certainly no signs or symptoms of vasculitis, infection, or inflammatory arthritis. Assessment & Plan (07/04/2018 10:54 AM EST): Stable involving all of her peripheral joints without evidence of dislocation or synovitis. Joint preservation strategies were discussed. Assessment & Plan (05/23/2018 11:51 AM EDT): He has completed her consultation and testing with the behavioral geneticist at [facility] and I am waiting to receive these results and I will schedule a follow-up appointment with her to discuss this. Greater trochanteric bursitis of right hip 09/19 Assessment & Plan (09/19/2017 1:03 PM EST): Patient is having a flare up of right trochanteric bursitis which will be treated with a pain relieving cortisone injection today into the trochanteric bursa as well as stretches for the iliotibial band which were demonstrated to her today. Undifferentiated connective tissue disease 09/19 Assessment & Plan (07/04/2018 10:55 AM EST): Because of frequent skin urinary and respiratory infections just to be certain even though thus far I find no evidence to suggest rheumatoid arthritis, mixed connective tissue disease or a lupus variant, I am going to check quantitative immunoglobulin levels and get back to her by phone call. Greater than 50% of this 28-minute visit was spent in [id number] conversation with the patient going over her multiple medical issues and control of pain. Assessment & Plan (09/19/2017 1:04 PM EST): Patient has been unable to continue tramadol because of what appears to be an allergic reaction marked by bronchospasm and rash. She has no prior history of urticaria or angioedema. Autoimmune workup for hereditary angioedema and autoimmune urticaria will be done today. I will get back to her by phone call. Other medications will remain unchanged. Fibromyalgia 09/10/2017 Assessment & Plan (01/30/2019 12:03 PM EDT): I have asked her to do a trial of Provigil at 200 mg daily to try and ameliorate some of the fatigue which I believe is part of her fibromyalgia syndrome. I have also checked a hepatitis C antibody, vitamin B12 level and a free T4 and a vitamin D level. Appropriate adjustments will be made. Assessment & Plan (01/22/2018 12:48 PM EDT): Generalized improvement in fatigue stiffness and pain throughout the body which she attributes to the use of CBD normal. She remains on the hydrocodone and continues to help and I refilled her medication today. Greater than 50% of this 28 minute visit was spent in [id number] conversation with the patient going over risks and benefits of CBD and current medications. He'll also need for cardiovascular exercise. Discussed her persistent but improved pain from osteoarthritis and impingement in the right shoulder and her sacroiliac dysfunction and her osteoarthritic right knee. Questions were answered. She is referred to a behavioral geneticist who is also evaluating her daughter and she will do this for the hypermobility in this patient. Assessment & Plan (11/15/2017 1:40 PM EDT): Patient's fibromyalgia is active but stable. She continues to have muscle spasms and peripheral paresthesias. She has been worked up in the past for central demyelinating processes and other neurologic illnesses. Her lab workup for lupus and associated connective tissue disorders as well as her vasculopathy's and myositis has been entirely negative. She continues to have pain across the lower back, neck, and especially where she has osteoarthritis and the right shoulder. She finds the Vicodin taken twice daily to be partially helpful. She has had no new hot red or swollen joints. Attention towards weight modification, low inflammatory diet, continuance of current medication and physical therapy evaluation for the right shoulder will be done today. Greater than 50% of this 29 minute visit was spent in [id number] conversation with the patient going over pain control, risks of medication and habituation, going over with her the narcotics agreement and the random urine testing requirements and refilling her medications. I will get the most recent lab work from her primary care physician. Additional lab work will be done today to try to further workup these frequent muscle spasms. Assessment & Plan (09/19/2017 1:03 PM EST): Active painful unstable. Discussed exercise program. Refilled her hydrocodone today. Continue Flexeril. Adhesive capsulitis of right shoulder 09/10/2017 Assessment & Plan (10/20/2020 9:14 AM EST): Painful, stable. Physical therapy when able to. Assessment & Plan (07/01/2019 3:49 PM EST): This is secondary to significant glenohumeral and acromioclavicular osteoarthritis. The procedure of choice would be shoulder replacement surgery when she is ready. She has already had consultations with the appropriate orthopedic surgeon. 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 She understands the limits of range of motion and things to avoid which may aggravate the pain. Secondary osteoarthritis of right shoulder 09/10 Assessment & Plan (03/31/2020 2:18 PM EDT): Again limited range of motion in abduction and internal and external rotation but no glenohumeral laxity, erythema, effusion, or axillary masses. She will live around the pain. Assessment & Plan (12/25/2018 10:02 AM EDT): Severe glenohumeral osteoarthritis of the right shoulder. Is natural history of this and traumatic nature of its origin and need for total shoulder replacement at some point. For acute flares injection therapy may be indicated but not as a chronic form of management. Assessment & Plan (05/23/2018 11:51 AM EDT): Painful chronic glenohumeral osteoarthritis of the right shoulder. This is unchanged. Assessment & Plan (09/10/2017 2:35 PM EST): She will continue to guard the shoulder and avoid raising it above her head or reaching around her back. The ultimate solution his total shoulder arthroplasty. Primary osteoarthritis of right knee 09/10/2017 Assessment & Plan (10/20/2020 9:14 AM EST): Painful, stable. Physical therapy when she is ready and able. Assessment & Plan (03/31/2020 2:18 PM EDT): Stable, we discussed weight reduction quadricep strengthening and well fitting supportive shoes with good shock absorption. Assessment & Plan (07/04/2018 10:54 AM EST): This is better since intra-articular and anserine bursal steroid injection was given on the last visit. She will continue to wear well fitting supportive shoes with good shock absorption, monitor and try to reduce her weight and practice quadricep strengthening on a daily basis. Assessment & Plan (09/10/2017 2:36 PM EST): Patient is having a flare of pain involving the right knee. There is no evidence of internal derangement. There may be a low-grade synovitis. She will receive a pain relieving cortisone injection today. As far as her recurrent allergic skin reactions and bronchospasm is concerned, she is been evaluated in the ER recently and also by a well-respected local whistle punk. She seems to see some association between taking the tramadol and having these reactions so we will stop the tramadol temporarily and give her a one-week prescription for 5 mg hydrocodone tablets to be taken every [address] needed in place of the tramadol and she will report back to me next week. I reviewed with her in detail recent lab work showing persistent elevation of C-reactive protein, a negative antinuclear antibody, a very mild elevation of her total white count with a normal differential and a normal hemoglobin. Encounters Date Type Department Care Team Description 03/23/2025 Transcribe Orders [facility] [address] [place] [id number] Erin Bone PA 03/18/2025 10:39 AM EDT - 03/18/2025 11:59 PM EDT Hospital Encounter [facility] [address] [place] [id number] Erin Bone PA Discharge Disposition: Home or Self Care 03/18/2025 Transcribe Orders [facility] [address] [place] [id number] Erin Bone PA Idiopathic hypoparathyroidism (Primary Dx); Impaired fasting glucose from Last 3 Months Immunizations Immunization Administration Dates Next Due INFLUENZA, SPLIT VIRUS, TRIVALENT PF 05/19/2016 Influenza Quadrivalent MDCK Preservative Free IM 06/14/2020,06/01/2017 Influenza Quadrivalent Preservative Free IM 03/21,07/28/2018,05/23/2012 Influenza Recombinant Trival ent Preservative Free IM 08/25/2024 Pneumococcal conjugate PCV21 09/03/2024 Pneumococcal polysaccharide PPSV23 05/19/2016 Td (adult), not adsorbed 09/20/2011 Tdap 03/23/2019,10/12/2011 Social History Tobacco Use Types Packs/Day Years [...] Orientation Straight 03/16/2023 1: 24 PM EDT Last Filed Vital Signs Vital Sign Reading Time Taken Comments Blood Pressure 127/86 12/18/2024 5:57 PM EDT Pulse 76 12/18/2024 5:57 PM EDT Temperature 36.9 C (98.4 F) 12/18/2024 5:57 PM EDT Respiratory Rate 18 12/18/2024 5:57 PM EDT Oxygen Saturation 100% 12/18/2024 5:57 PM EDT Inhaled Oxygen Concentration - - Weight 77.1 kg (170 lb) 09/25/2024 3:29 PM EST Height 152.4 cm (5') 09/25/2024 3:29 PM EST Body Mass Index 33.2 09/25/2024 3:29 PM EST Plan of Treatment Health Maintenance Due Date Last Done Comments DEPRESSION SCREENING 1994 SMOKING Hx and SMOKELESS TOBACCO SCREENING 1995 HIV ONE-TIME SCREENING (18-65 YEARS) 01/22/2000 PAP SMEAR 2003 MAMMOGRAM 2022 INFLUENZA VACCINE (#1) 2025 , 06/14/2020, 04/17/2019, Additional history exists COVID-19 VACCINE ( season) 2025 04/20/2021, 01/03/2021 SCREENING FOR DIABETES 03/18/2028 03/18/2025, 2024 Adult Td,Tdap Booster 03/23/2029 03/23/2019 , 10/12/2011, 09/20/2011 HEPATITIS C SCREENING Completed 01/30/2019 PNEUMOCOCCAL VACCINES (0-49 years) Aged Out 09/03/2024, 05/19/2016 No longer eligibl e based on patient's age to complete this topic HEPATITIS A VACCINES Aged Out No long er eligible based on patient's age to complete this topic HIB VACCINES Aged Out No longer eligi ble based on patient's age to complete this topic MENINGOCOCCAL VACCINES (ACWY) Aged Out No longer eligible based on patient's age to complete this topic MENINGOCOCCAL VACCINES (B) Aged Out N o longer eligible based on patient's age to complete this topic Medical Devices Not on file Procedures Procedure Name Priority Date/Time Associated Diagnosis Comments PHOSPHORUS Routine 03/18/2025 10:41 AM EDT Idiopathic hypoparathyroidism Impaired fasting glucose PARATHYROID HORMONE (PTH) Routine 03/18/2025 10:41 AM EDT Idiopathic hypoparathyroidism Impaired fasting glucose 25-OH VITAMIN D Routine 03/18/2025 10:41 AM EDT Idiopathic hypoparathyroidism Impaired fasting glucose HEMOGLOBIN A1C Routine 03/18/2025 10:41 AM EDT Idiopathic hypoparathyroidism Impaired fasting glucose COMPREHENSIVE METABOLIC PANEL Routine 03/18/2025 10:41 AM EDT Idiopathic hypoparathyroidism Impaired fasting glucose HEPATITIS C ANTIBODY, QUALITATIVE Routine 01/30/2019 11:49 AM EDT Secondary osteoarthritis of right shoulder Undifferentiated connective tissue disease from Last 3 Months or Most Recently Relevant to Health Maintenance Results * Comprehensive metabolic panel (03/18/2025 10:41 AM EDT) SODIUM 139 133 - 146 mmol/L [facility] POTASSIUM 3.9 3.3 - 5.1 mmol/L [facility] CHLORIDE 102 96 - 108 mmol/L [facility] CO2 25 21 - 35 mmol/L [facility] BUN 18 6 - 19 mg/dL [facility] CREATININE 0.60 0.5 - 1.5 mg/dL [facility] GLUCOSE 89 70 - 99 mg/dL [facility] ALBUMIN 4.0 3.9 - 4.8 g/dL [facility] TOTAL PROTEIN 7.2 6.5 - 8.0 g/dL [facility] CALCIUM 8.9 8.4 - 10.3 mg/dL [facility] ALKALINE PHOSPHATASE 108 39 - 117 U/L [facility] TOTAL BILIRUBIN 0.4 0.0 - 1.2 mg/dL [facility] AST 15 0 - 37 U/L [facility] ALT 12 0 - 40 U/L [facility] GLOBULIN 3.2 1 - 4.8 g/dL [facility] EGFR 114 >59 mL/min/1.7 3m2 [facility] Comment:Estimated glomerular filtration rate calculated using the CKD-EPI refit equation. ANION GAP 16 10 - 20 mmol/L [facility] Blood 03/18/2025 10:4 1 AM EDT 03/18/2025 10:43 AM EDT us Erin JIMÉNEZ LAB BLOOD ORDERABLES Final Result Performing Organization Address [facility] Co de Phone Number [address] [address] * (ABNORMAL) 25-OH vitamin D (03/18/2025 10:41 AM EDT) 25 OH VIT D (TOTAL) 23(L) 30 - 60 ng/mL [facility] Blood 03/18/2025 10:4 1 AM EDT 03/18/2025 10:43 AM EDT Erin JIMÉNEZ LAB BLOOD ORDERABLES Final Result Performing Organization Address [facility]/ZIP Co de Phone Number [address] [address] * Phosphorus (03/18/2025 10:41 AM EDT) PHOSPHORUS 3.2 2.7 - 4.5 mg/dL [facility] Blood 03/18/2025 10:4 1 AM EDT 03/18/2025 10:43 AM EDT Erin JIMÉNEZ LAB BLOOD ORDERABLES Final Result Performing Organization Address City/[facility] Co de Phone Number [address] [address] * Parathyroid hormone (PTH) (03/18/2025 10:41 AM EDT) PARATHYROID HORMONE 32 15 - 65 pg/mL [facility] Blood 03/18/2025 10:4 1 AM EDT 03/18/2025 10:43 AM EDT us Erin JIMÉNEZ LAB BLOOD ORDERABLES Final Result Performing Organization Address [facility]/ZIP Co de Phone Number [address] [address] * Hemoglobin A1c (03/18/2025 10:41 AM EDT) HEMOGLOBIN A1C 5.3 4.3 - 5.8 % [facility] Blood 03/18/2025 10:4 1 AM EDT 03/18/2025 10:43 AM EDT Erin JIMÉNEZ LAB BLOOD ORDERABLES Final Result Performing Organization Address [facility]/ZIP Co de Phone Number [address] [address] * Hepatitis C antibody, qualitative (01/30/2019 11:49 AM EDT) HCV Negative Negative [facility] Comment: This is a screening test and should be confirmed with molecular testing Blood 01/30/2019 11:4 9 AM EDT 01/30/2019 11:55 AM EDT us Dirk Boo MD LAB BLOOD ORDERABLES Final Result Performing Organization Address [facility]/ZIP Co de Phone Number [address] [address] from Last 3 Months or Most Recently Relevant to Health Maintenance Insurance MEDIC[place] PART [place] B Member Subscriber Plan / Payer ( fective 2016-Present) Name:Park Peres Member ID:[id number] Relation to Subscriber:Self Name:Park Peres Subscriber ID:[id number] Payer ID:[id number] Group ID:Not on file Type:Medicare Address: [employer] [address] [place], [place] [address]HEALTH MEDICARE PART A & B HEALTH MEDICARE PART A & B [facility] PART A & B [facility] MEDICARE PART A & B [facility] MEDICARE PART A & B [place] MED[place] PART A & B [facility] Care Teams Car Top Bolter Relationship Specialty Start Date End Date Jose Chauhan DO [address] [place] [address] [email or web address] PCP - General Internal Medicine 12/18/24 Additional Source Comments The information contained in this document represents components of the legal health record. It is not the complete legal health record.[facility]
--- OUTSIDE RECORDS SUMMARY | 2025-04-28 11:45 | XMS_ITS | Encounter Summary ---
Author Organization [facility] Address [address] [place] [address] [place] [phone] Phone Care Team Providers Care Electronics Department Manager Name Role Phone Jose Chauhan DO Primary Care Provider [phone] Devika Ceja DO Primary Care Provide r Jose Chauhan DO Primary Care Provider [phone] Encounter Details Date Type Department Care Team (Latest Contact Info) Description 01/08/2019 Transcribe Orders [facility] [address] [place] [id number] Audelia Stevenson PA-C [address] [place] [address] Elevated C-reactive protein (CRP) (Primary Dx); Nonvenomous insect bite of face without infection, initial encounter Social History Tobacco Use Types Packs/Day Years [...] documented as of this encounter Results * Babesia serology (01/08/2019 10:52 AM EDT) Babesia microti IgG <1:64 <1:64 titer [facility] Comment: (NOTE) ADDITIONAL INFORMATION This test was developed using an analyte specific reagent. Its performance characteristics were determined by [facility] in a manner consistent with CLIA requirements. This test has not been cleared or approved by the U.S. Food and Drug Administration. Blood (Blood) 01/08/2019 10: 52 AM EDT 01/08/2019 11:11 AM EDT Audelia Elva TRUONG MICROBIOLOGY - GENERAL ORDER MALDONADO Final Result Performing Organization Address [facility] Co de Phone Number [facility] [place] [address] * Q fever antibody (01/08/2019 10:52 AM EDT) Pathologist [facility] QFVR PHASE I IGG <1:16 <1:16 [facility] QFVR PHASE II IGG <1:16 <1:16 [facility] [place] QFVR PHASE I IGM <1:16 <1:16 [facility] [place] QFVR PHASE II IGM <1:16 <1:16 [facility] [place] Q FEVER INTERP SEE NOTE [facility] [place] Comment: (NOTE) Negative. No antibody detected. This result is seen in persons with either no previous C. burnetii infection or with early infection. If early acute Q-fever infection is suspected, obtain a second serum sample 2-3 weeks later and retest. Blood (Blood) 01/08/2019 10: 52 AM EDT 01/08/2019 11:11 AM EDT November Elva TRUONG MICROBIOLOGY - GENERAL ORDER MALDONADO Final Result Performing Organization Address City/[facility] Co de Phone Number [facility] [address] [place] [address] * Ehrlichia chaffeensis (HME) antibody (01/08/2019 10:52 AM EDT) Pathologist [facility] EHRLICHIA CHAFF (HME) AB, IGG <1:64 <1:64 TITER [facility] Comment: (NOTE) ADDITIONAL INFORMATION This test was developed using an analyte specific reagent. Its performance characteristics were determined by [facility] in a manner consistent with CLIA requirements. This test has not been cleared or approved by the U.S. Food and Drug Administration. Blood 01/08/2019 10:5 2 AM EDT 01/08/2019 11:11 AM EDT Audelia Elva TRUONG LAB BLOOD ORDERABLES Final R esult Performing Organization Address City/[facility] Co de Phone Number [facility] [address] [place] [address] * Lyme screen with reflex to Western blot, blood (01/08/2019 10:52 AM EDT) [facility] Lyme AB IgG Negative Negative [facility] Lyme AB IgM Negative Negative [facility] Blood 01/08/2019 10:5 2 AM EDT 01/08/2019 11:11 AM EDT [facility] Elva JIMÉ[place]on LAB BLOOD ORDERABLES Final R esult [facility] [address] [place] [address] * Comprehensive metabolic panel (01/08/2019 10:52 AM EDT) [facility] SODIUM 139 133 - 146 mmol/L [facility] POTASSIUM 3.9 3.3 - 5.1 mmol/L [facility] CHLORIDE 101 96 - 108 mmol/L [facility] CO2 25 21 - 35 mmol/L [facility] BUN 17 6 - 19 mg/dL [facility] CREATININE 0.70 0.5 - 1.5 mg/dL [facility] GLUCOSE 93 70 - 99 mg/dL [facility] ALBUMIN 3.9 3.9 - 4.8 g/dL [facility] TOTAL PROTEIN 7.5 6.5 - 8.0 g/dL [facility] CALCIUM 9.4 8.4 - 10.3 mg/dL [facility] ALKALINE PHOSPHATASE 79 39 - 117 U/L [facility] TOTAL BILIRUBIN 0.3 0.0 - 1.2 mg/dL [facility] AST 16 0 - 37 U/L [facility] ALT 11 0 - 40 U/L [facility] GLOBULIN 3.6 1 - 4.8 g/dL [facility] EGFR 111 >59 mL/min/1.7 3m2 [facility] Comment:If patient is black, multiply result by 1.159. Estimated glomerular filtration rate calculated using the CKD-EPI equation. ANION GAP 17 10 - 20 mmol/L [facility] Blood 01/08/2019 10:5 2 AM EDT 01/08/2019 11:11 AM EDT November Elva TRUONG LAB BLOOD ORDERABLES Final R esult [facility] [address] [place] [address] * (ABNORMAL) CBC and differential (01/08/2019 10:52 AM EDT) WBC 8.65 3.40 - 11.20 K/uL [facility] RBC 4.45 3.80 - 4.80 M/uL [facility] HGB 11.8(L) 12.0 - 15.0 g/dL [facility] HCT 36.1 36.0 - 46.0 % [facility] PLT 384 130 - 400 K/uL [facility] MCV 81.1 79.0 - 98.0 fL [facility] MCH 26.5(L) 27.0 - 34.8 pg [facility] MCHC 32.7 31.5 - 36.0 g/dL [facility] RDW 13.9 10.8 - 14.6 % [facility] MPV 11.7 9.4 - 12.4 fl [facility] NRBC 0.00 0.00 /100 WBCs [facility] ABSOLUTE NRBC 0.00 0.00 K/uL [facility] DIFF METHOD Auto [facility] NEUTS 68.0 45.30 - 77.70 % [facility] LYMPHS 22.9 12.30 - 39.70 % [facility] MONOS 7.5 4.10 - 12.80 % [facility] EOS 0.9 0 - 7.2 % [facility] BASOS 0.5 0 - 2.80 % [facility] Granulocytes, immature (%) 0.2 0.0 - 0.9 % [facility] ABSOLUTE NEUTS 5.88 1.40 - 7.70 K/uL [facility] ABSOLUTE LYMPHS 1.98 0.60 - 3.20 K/uL [facility] ABSOLUTE MONOS 0.65(H) 0.11 - 0.59 K/uL [facility] ABSOLUTE EOS 0.08 0.01 - 0.50 K/uL [facility] ABSOLUTE BASOS 0.04 0.00 - 0.08 K/uL [facility] Granulocytes, immature 0.02 0.00 - 0.05 K/uL [facility] Blood 01/08/2019 10:5 2 AM EDT 01/08/2019 11:11 AM EDT us November Elva TRUONG LAB BLOOD ORDERABLES Final R esult [address] [address] * (ABNORMAL) Sedimentation rate (ESR) (01/08/2019 10:52 AM EDT) ESR 26(H) 0 - 20 mm/h [facility] Blood 01/08/2019 10:5 2 AM EDT 01/08/2019 11:11 AM EDT November Elva JIMÉ[place] LAB BLOOD ORDERABLES Final R esult [address] [address] * (ABNORMAL) C-reactive protein, high sensitivity (01/08/2019 10:52 AM EDT) CRP, HIGH SENSITIVITY 36.1(H) 0.0 - 5.0 mg/L [facility] Comment: Interpretation: hsCRP level (mg/L) Relative Risk <1.0 Low 1.0 - 3.0 Average >3.0 High Neonates (0-3 weeks): 0.1 - 4.1 mg/L Children (2 months - 15 years): 0.1 - 2.8 mg/L Blood 01/08/2019 10:5 2 AM EDT 01/08/2019 11:11 AM EDT November Elva TRUONG LAB BLOOD ORDERABLES Final R esult Performing Organization Address City/[facility] Co de Phone Number [address] [address] documented in this encounter Visit Diagnoses Diagnosis Elevated C-reactive protein (CRP)- Primary Nonvenomous insect bite of face without infection, initial encounter documented in this encounter Additional Health Concerns Infection Onset Date Last Indicated Resolved Time CoV-Exposed Comment:Recent close contact documented in the Travel/Symptom Screening Form 08/01/2023 08/12/2023 1:[address] documented as of this encounter Care Teams Electronics Department Manager Relationship Specialty Start Date End Date Jose Chauhan DO PCP - General 06/07/17 06/15/19 Devika Ceja DO [address] [place] [phone] PCP - General Internal Medicine 06/16/19 12/17/24 Jose Chauhan DO [address] [place] [phone] [email or web address] PCP - General Internal Medicine 12/18/24 documented as of this encounter Additional Source Comments The information contained in this document represents components of the legal health record. It is not the complete legal health record.[facility]
--- OUTSIDE RECORDS SUMMARY | 2025-04-28 11:45 | XMS_ITS | Encounter Summary ---
Author Organization [facility] Address [address] [place] [address] Phone Care Team Providers Care Gameplay Programmer Name Role Phone Devika Ceja DO Primary Care Provide r Jose Chauhan DO Primary Care Provider [phone] Encounter Details Date Type Department Care Team (Latest Contact Info) Description 05/06/2024 Transcribe Orders [facility] [address] [place] [id number] Erin Bone PA [address] [place] [address] [address] [place] [address] Vitamin D deficiency, unspecified (Primary Dx); Idiopathic hypoparathyroidism; Impaired fasting glucose Social History Tobacco Use Types Packs/Day Years [...] documented as of this encounter Results * (ABNORMAL) Insulin Level (05/06/2024 8:48 AM EDT) INSULIN 33.4(H) 2.6 - 25.0 uIU/mL [facility] Blood 05/06/2024 8:48 AM EDT 05/06/2024 8:58 AM EDT us Erin JIMÉNEZ LAB BLOOD ORDERABLES Final Result [address] [address] * 25-OH vitamin D (05/06/2024 8:48 AM EDT) 25 OH VIT D (TOTAL) 31 30 - 60 ng/mL [facility] Blood 05/06/2024 8:48 AM EDT 05/06/2024 8:58 AM EDT us Erin JIMÉNEZ LAB BLOOD ORDERABLES Final Result [facility] [address] [place] [address] * (ABNORMAL) Parathyroid hormone (PTH) (05/06/2024 8:48 AM EDT) PARATHYROID HORMONE 10(L) 15 - 65 pg/mL [facility] Blood 05/06/2024 8:48 AM EDT 05/06/2024 8:57 AM EDT Erin JIMÉNEZ LAB BLOOD ORDERABLES Final Result Performing Organization Address City/[facility]/ZIP Co de Phone Number [address] [address] * (ABNORMAL) Lipid panel (05/06/2024 8:48 AM EDT) Pathologist [facility] HDL 55 mg/dL [facility] Comment: Interpretation <40 mg/dL: Low HDL cholesterol (major risk factor for CHD) Greater than or equal to 60 mg/dL: High HDL cholesterol ( negative risk factor for CHD) HDL - cholesterol is affected by a number of factors, e.g. smoking, excerise, hormones, sex and age. CHOLESTEROL 211 0 - 240 mg/dL [facility] TRIGLYCERIDES 98 30 - 160 mg/dL [facility] LDL 136(H) 50 - 129 mg/dL [facility] Comment: LDL levels in terms of risk for coronary heart disease: <100 mg/dL: Optimal 100-129 mg/dL: Near or above optimal 130-159 mg/dL: Borderline high 160-189 mg/dL: High >190 mg/dL: Very High CARDIAC RISK RATIO 3.8 3.3 - 4.4 [facility] Blood 05/06/2024 8:48 AM EDT 05/06/2024 8:57 AM EDT us Erin JIMÉNEZ LAB BLOOD ORDERABLES Final Result Performing Organization Address City/[facility]/ZIP Co de Phone Number [address] [address] * (ABNORMAL) CBC and differential (05/06/2024 8:48 AM EDT) WBC 11.39(H) 4.00 - 11.00 K/uL [facility] RBC 4.68 3.72 - 5.30 M/uL [facility] HGB 12.6 10.6 - 15.5 g/dL [facility] HCT 39.3 32.0 - 45.0 % [facility] PLT 335 140 - 430 K/uL [facility] MCV 84.0 78.0 - 97.0 fL [facility] MCH 26.9 25.0 - 33.0 pg [facility] MCHC 32.1 32.0 - 36.0 g/dL [facility] RDW 13.5 11.0 - 16.0 % [facility] MPV 12.3 8.4 - 12.8 fl [facility] DIFF METHOD Auto [facility] NEUTS 64.1 43.0 - 75.0 % [facility] LYMPHS 26.4 18.2 - 47.4 % [facility] MONOS 6.3 4.00 - 11.00 % [facility] EOS 2.5 0.0 - 8.0 % [facility] BASOS 0.3 0.0 - 2.0 % [facility] Granulocytes, immature (%) 0.4 0.0 - 0.9 % [facility] ABSOLUTE NEUTS 7.30 1.80 - 7.70 K/uL [facility] ABSOLUTE LYMPHS 3.01 1.00 - 3.10 K/uL [facility] ABSOLUTE MONOS 0.72 0.20 - 0.80 K/uL [facility] ABSOLUTE EOS 0.28 0.00 - 0.80 K/uL [facility] ABSOLUTE BASOS 0.03 0.00 - 0.09 K/uL [facility] Granulocytes, immature 0.05 0.00 - 0.05 K/uL [facility] Blood 05/06/2024 8:48 AM EDT 05/06/2024 8:58 AM EDT us Erin JIMÉNEZ LAB BLOOD ORDERABLES Final Result [facility] [address] [place] [address] * (ABNORMAL) Comprehensive metabolic panel (05/06/2024 8:48 AM EDT) SODIUM 139 133 - 146 mmol/L [facility] POTASSIUM 3.9 3.3 - 5.1 mmol/L [facility] CHLORIDE 101 96 - 108 mmol/L [facility] CO2 25 21 - 35 mmol/L [facility] BUN 23(H) 6 - 19 mg/dL [facility] CREATININE 0.70 0.5 - 1.5 mg/dL [facility] GLUCOSE 106(H) 70 - 99 mg/dL [facility] ALBUMIN 4.1 3.9 - 4.8 g/dL [facility] TOTAL PROTEIN 7.8 6.5 - 8.0 g/dL [facility] CALCIUM 9.9 8.4 - 10.3 mg/dL [facility] ALKALINE PHOSPHATASE 98 39 - 117 U/L [facility] TOTAL BILIRUBIN 0.4 0.0 - 1.2 mg/dL [facility] AST 18 0 - 37 U/L [facility] ALT 11 0 - 40 U/L [facility] GLOBULIN 3.7 1 - 4.8 g/dL [facility] EGFR 111 >59 mL/min/1.7 3m2 [facility] Comment:Estimated glomerular filtration rate calculated using the CKD-EPI refit equation. ANION GAP 17 10 - 20 mmol/L [facility] Blood 05/06/2024 8:48 AM EDT 05/06/2024 8:58 AM EDT Erin JIMÉNEZ LAB BLOOD ORDERABLES Final Result [address] [address] * Hemoglobin A1c (05/06/2024 8:48 AM EDT) HEMOGLOBIN A1C 5.7 4.3 - 5.8 % [facility] Blood 05/06/2024 8:48 AM EDT 05/06/2024 8:58 AM EDT Erin JIMÉNEZ LAB BLOOD ORDERABLES Final Result [facility] [address] [place] [address] documented in this encounter Visit Diagnoses Diagnosis Vitamin D deficiency, unspecified- Primary Idiopathic hypoparathyroidism Impaired fasting glucose documented in this encounter Care Teams Gameplay Programmer Relationship Specialty Start Date End Date Devika Ceja DO [address] [id number] PCP - General Internal Medicine 06/16/19 12/17/24 Jose Chauhan DO [address] [place] [address] [email or web address] PCP - General Internal Medicine 12/18/24 documented as of this encounter Additional Source Comments The information contained in this document represents components of the legal health record. It is not the complete legal health record.[facility]
--- OUTSIDE RECORDS SUMMARY | 2025-04-28 11:45 | XMS_ITS | Encounter Summary ---
Author Organization [facility] Address [address] [place] [address] [place] [address] Phone Care Team Providers Care Grit Removal Operator Name Role Phone Devika Ceja DO Primary Care Provide r Jose Chauhan DO Primary Care Provider [phone] Encounter Details Date Type Department Care Team (Late st Contact Info) Description 06/16/2019 Procedure Pass [facility], [address] [place] [address] Social History Tobacco Use Types Packs/Day Years [...] documented as of this encounter Care Teams Grit Removal Operator Relationship Specialty Start Date End Date Devika Ceja DO [address] [place] [address] [address] [place] [address] PCP - General Internal Medicine 06/16/19 12/17/24 Jose Chauhan DO [address] [place] [id number] [email or web address] PCP - General Internal Medicine 12/18/24 documented as of this encounter Additional Source Comments The information contained in this document represents components of the legal health record. It is not the complete legal health record.[facility]
--- OUTSIDE RECORDS SUMMARY | 2025-04-28 11:45 | XMS_ITS | Encounter Summary ---
Author Organization [facility] Address [address] [place] [address] Phone Care Team Providers Care Disc Jockey Name Role Phone Jose Chauhan DO Primary Care Provider [phone] Devika Ceja DO Primary Care Provide r Nikolayjoleen Jose Hamilton DO Primary Care Provider [phone] Encounter Details Date Type Department Care Team (Latest Contact Info) Description 02/21/2019 Transcribe Orders [facility] [address] [place] [address] Audelia Stevenson PA-C [address] Juan [address] [place] [address] Elevated C-reactive protein (CRP) (Primary Dx) Social History Tobacco Use Types [...] as of this encounter Results * (ABNORMAL) C-reactive protein, high sensitivity (02/21/2019 3:36 PM EDT) CRP, HIGH SENSITIVITY 34.7(H) 0.0 - 5.0 mg/L [facility] Comment: Interpretation: hsCRP level (mg/L) Relative Risk <1.0 Low 1.0 - 3.0 Average >3.0 High Neonates (0-3 weeks): 0.1 - 4.1 mg/L Children (2 months - 15 years): 0.1 - 2.8 mg/L Blood 02/21/2019 3:36 PM EDT 02/21/2019 3:38 PM EDT November Elva TRUONG LAB BLOOD ORDERABLES Final R esult [facility] [address] [place] [address] documented in this encounter Visit Diagnoses Diagnosis Elevated C-reactive protein (CRP)- Primary documented in this encounter Additional Health Concerns Infection Onset Date Last Indicated Resolved Time CoV-Exposed Comment:Recent close contact documented in the Travel/Symptom Screening Form 08/01/2023 08/12/2023 1:[address] documented as of this encounter Care Teams Disc Jockey Relationship Specialty Start Date End Date Jose Chauhan DO [email or web address] PCP - General 06/07/17 06/15/19 Devika Ceja DO [address] [place] [phone] PCP - General Internal Medicine 06/16/19 12/17/24 Jose Chauhan DO [address] [place] [address] [email or web address] PCP - General Internal Medicine 12/18/24 documented as of this encounter Additional Source Comments The information contained in this document represents components of the legal health record. It is not the complete legal health record.[facility]
--- OUTSIDE RECORDS SUMMARY | 2025-04-28 11:45 | XMS_ITS | Encounter Summary ---
Author Organization [facility] Address [address] [place] [address] Phone Care Team Providers Care Neurology Physician Name Role Phone NikolayJose goodrich Hamilton MEAD Primary Care Provider [phone] Encounter Details Date Type Department Care Team (Late st Contact Info) Description 03/23/2025 Transcribe Orders [facility] [address] [place] [address] Erin Bone PA [address] [place] [address] [place] [address] Social History Tobacco Use Types Packs/Day Years [...] on filedocumented in this encounter Care Teams Neurology Physician Relationship Specialty Start Date End Date Jose Chauhan DO [address] [place] [address] [email or web address] PCP - General Internal Medicine 12/18/24 documented as of this encounter Additional Source Comments The information contained in this document represents components of the legal health record. It is not the complete legal health record.[facility]
== END 2025-04-28 10:28 | disposition home or self-care (01) ==
PROVIDERS: PCP Internal Medicine; Visit Provider Nurse Practitioner Family
DX: Q79.60 Ehlers-Danlos syndrome, unspecified (principal); M54.6 Pain in thoracic spine; M53.3 Sacrococcygeal disorders, not elsewhere classified; M47.816 Spondylosis without myelopathy or radiculopathy, lumbar region; Z79.891 Long term (current) use of opiate analgesic; E66.01 Morbid (severe) obesity due to excess calories; Z68.42 Body mass index [BMI] 45.0-49.9, adult
CPT/HCPCS: 99214; G2211

== ENCOUNTER → 2025-04-28 09:59 | Outpatient (BNVA) | payer MEDICARE, MEDICAID, SELFPAY | PROVIDERS: PCP Internal Medicine; Visit Provider Nurse Practitioner Family | DX: Q79.60 Ehlers-Danlos syndrome, unspecified (principal); M54.6 Pain in thoracic spine; M53.3 Sacrococcygeal disorders, not elsewhere classified; M47.816 Spondylosis without myelopathy or radiculopathy, lumbar region; Z79.891 Long term (current) use of opiate analgesic; E66.01 Morbid (severe) obesity due to excess calories; Z68.42 Body mass index [BMI] 45.0-49.9, adult; Z87.891 Personal history of nicotine dependence | CPT/HCPCS: 99212 ==

== ENCOUNTER 2025-06-18 09:11 | Outpatient (REF) | payer MEDICARE, MEDICAID, SELFPAY ==
--- OUTSIDE RECORDS SUMMARY | 2022-12-18 13:24 | XMS_ITS | Encounter Summary ---
Author Organization [facility] Address [address] [place] [address] [place] [phone] Phone Care Team Providers Care Bit Setter Name Role Phone Devika Ceja DO Primary Care Provide r Encounter Details Date Type Department Care Team (Late st Contact Info) Description 12/18/2022 1:24 PM EDT Hospital Encounter [facility] [address] [place] [address] Cris Richmond CNP [address] [place] [phone] [email or web address] Social History Tobacco Use Types Packs/Day Years [...] 08/01/2023 10:49 AM Eryn Moreira, MASSIMO * [place] Suicide Severity Rating Scale (Screener/Recent Self-Report) Question [...] Description 07/03/2025 2:30 PM EST Office Visit [facility] Center for Urogynecology on the [address] [address] Torie Dominguez MD, MS [address] [place] [address], [address] Department of Obstetrics [place] [address] [email or web address] 08/11/2025 3:30 PM EST Office Visit [facility] [address] [place] [phone] Unknown, Unknown, Hesham Cramer [address] [place] [address] [email or web address] documented as of this encounter Procedures [...] PM EDT No fracture or dislocation. ATTESTATION: Stevie Kate as teaching physician, have reviewed the [...] originally createdby Andrew Alatorre. us Cris Richmond LOFTSMAN IMG XR LOWER EXTREMITY Noemi l Result documented in this encounter Visit Diagnoses Not on filedocumented in this encounter Additional Health Concerns Infection Onset Date Last Indicated Resolved Time CoV-Exposed Comment:Recent close contact documented in the Travel/Symptom Screening Form 08/01/2023 08/12/2023 1:[address] documented as of this encounter Care Teams Bit Setter Relationship Specialty Start Date End Date MarcialJose henninggermainjasmina MiguelDO 75 [facility] 1 [place] [phone] PCP - General Internal Medicine 06/16/19 12/17/24 documented as of this encounter Additional Source Comments The information contained in this document represents components of the legal health record. It is not the complete legal health record.[facility]
--- OUTSIDE RECORDS SUMMARY | 2024-09-25 17:05 | XMS_ITS | Encounter Summary ---
Author Organization [facility] Address [address] [place] [address] [place] [phone] Phone Care Team Providers Care Purification Supervisor Name Role Phone Devika Ceja DO Primary Care Provide r Encounter Details Date Type Department Care Team (Late st Contact Info) Description 09/25/2024 4:05 PM EST Hospital Encounter [facility] [address] [place] [phone] Lauryn Irwin FNP [address] [place] [phone] [email or web address] Social History Tobacco Use Types Packs/Day Years [...] Description 07/03/2025 2:30 PM EST Office Visit [facility] Center for Urogynecology on the [address] [address] Torie Dominguez MD, [place] [address] [facility], [address] Department of Obstetrics [place] [address] [email or web address] 08/11/2025 3:30 PM EST Office Visit [facility] [address] [place] [address] Unknown, Unknown, Hesham Cramer [address] [place] [address] [email or web address] documented as of this encounter Procedures Procedure [...] clinician's provided indication for this examination in [facility]: Trauma; books/book shelf fell on foot today distally COMPARISON: None available FINDINGS: No fracture. Normal alignment. Normal joint spaces. Plantar calcaneal spur. Procedure Note Varun Juarez MD - 09/25/2024 XR FOOT 3 OR MORE VIEWS (RIGHT) Referring clinician's provided indication for this examination in [facility]:Trauma; books/book shelf fell on foot today distally COMPARISON: None available FINDINGS: No fracture. Normal alignment. Normal joint spaces. Plantar calcanealspur. IMPRESSION: No fracture or dislocation. ATTESTATION: I, Dr. Varun Miller as teaching physician, havereviewed the images for this case and if necessary edited the reportoriginally created by Tayler Pichardo. Lauryn Irwin COMPUTER NETWORKING INSTRUCTOR ADJUNCT IMG XR LOWER EXTREMITY Noemi l Result documented in this encounter Visit Diagnoses Not on filedocumented in this encounter Care Teams Purification Supervisor Relationship Specialty Start Date End Date Devika Ceja DO [address] [facility] 1 [place] [address] PCP - General Internal Medicine 06/16/19 12/17/24 documented as of this encounter Additional Source Comments The information contained in this document represents components of the legal health record. It is not the complete legal health record.[facility]
--- NOTE | ~2025-06-18 | MM_ITS ---
EXAMINATION: DXA BONE DENSITY AXIAL HISTORY: Z87.311 - Personal history of (healed) other pathological fracture TECHNIQUE: Major Aide Dual energy absorptiometry (DEXA) of the lumbar spine, total left hip, and femoral neck was performed. COMPARISON: There are no prior studies for comparison. FINDINGS: The bone mineral density of the lumbar spine is 1.091 g/cm2, corresponding to a T-score of -0.7, and a Z-score of -1.9. This is indicative of normal bone mineral density. The bone mineral density of the left total hip is 1.173 g/cm2, corresponding to a T-score of 1.3, and a Z-score of 0.7. This is indicative of normal bone mineral density. The bone mineral density of the left femoral neck is 0.965 g/cm2, corresponding to a T-score of -0.5, and a Z-score of -0.8. This is indicative of normal bone mineral density. FRACTURE RISK: The FRAX index suggests a risk of major osteoporotic fracture of 3.7%, and of hip fracture 0.1%. MM/XR DEXA axial skeleton IMPRESSION: Based on bone mineral density, and according to World Health Organization (WHO) criteria, the diagnosis is consistent with normal bone mineral density. Statistically, 68% of repeat scans fall within 1 SD (+/- 0.010 g/cm2 for AP spine L1-L4) and 1 SD (+/- 0.012 g/cm2 for femur total) FRAX is a trademark of the [employer]'s [place] [facility] Metabolic Bone Disease, a World Health Organization (WHO) Collaborating Center. Electronically signed by: Rick Lynch MD 06/18/2025 10:07 AM EDT
--- OUTSIDE RECORDS SUMMARY | 2025-06-18 10:23 | XMS_ITS | Encounter Summary ---
Author Organization [facility] Address [address] [place] [address] Phone Care Team Providers Care Energy Conservation Director Name Role Phone Jose Cahuhan DO Primary Care Provider Devika Ceja DO Primary Care Provide r Jose Chauhan DO Primary Care Provider [phone] Reason for Referral * - Closed Specialty Diagnoses / Procedures Referred By Luh mccarthy Referred To Contact Diagnoses Atypical chest pain Procedures Stress Test Exercise Audelia Stevenson PA-C Phone: tel: fax: mailto: Referral ID Status Reason Start Date Expiration Date Visits Re quested Visits Authorized [id number] Closed 02/06/2019 02/06/2020 1 1 Encounter Details Date Type Department Care Team (Late st Contact Info) Description 02/06/2019 Ancillary Orders Virtual Department [address] [place] [address] Audelia Stevenson PA-C [address] [place] [address] [email or web address] Atypical chest pain Social History Tobacco Use [...] Description 07/03/2025 2:30 PM EST Office Visit [facility] Uro[facility]necology on the [address] [place] [address] Torie Dominguez MD, [place] [address] Department of Obstetric[place] [address] [email or web address] 08/11/2025 3:30 PM EST Office Visit [facility] [address] [place] [address] Unknown, Unknown, Hesham Cramer [address] [place] [address] [email or web address] documented as of this encounter Results * Stress Test Exercise (02/17/2019 11:14 AM EDT) Max BP Systolic 150 mmHg [facility] Max HR 173 BPM [facility] Resting HR 92 BPM [facility] Resting BP Systolic 142 mmHg [facility] Resting BP Diastolic 88 mmHg [facility] Peak METS 10.1 METS [facility] Peak HR 173 BPM [facility] Anatomical Region Laterality Modality Heart Other 02/17/2019 [...] Gleason APRN with Dr. Anthony. November Elva TRUONG CV STRESS ORDERABLES Final R esult documented in this encounter Visit Diagnoses Diagnosis Atypical chest pain Other chest pain Atypical chest pain Other chest pain documented in this encounter Additional Health Concerns Infection Onset Date Last Indicated Resolved Time CoV-Exposed Comment:Recent close contact documented in the Travel/Symptom Screening Form 08/01/2023 08/12/2023 1:[address] documented as of this encounter Care Teams Energy Conservation Director Relationship Specialty Start Date End Date Jose Chauhan DO PCP - General 06/07/17 06/15/19 Devika Ceja DO [address] [place] [phone] PCP - General Internal Medicine 06/16/19 12/17/24 Jose Chauhan DO [address] [place] [address] [email or web address] PCP - General Internal Medicine 12/18/24 documented as of this encounter Additional Source Comments The information contained in this document represents components of the legal health record. It is not the complete legal health record.[facility]
--- OUTSIDE RECORDS SUMMARY | 2025-06-18 10:23 | XMS_ITS | Data Portability ---
Author Organization [facility], Telehealth Patient Home Address [address] [place] [address] Assessment Encounter Date Assessment Date Assessment LastModified by Organization Details LastModified Time 10/08/2024 10/08/2024 Patient agreed and verbally consents to this audio and video Telehealth appt via a secure platform [email or web address] Not available 10/08/2024 12:15:38 Plan of Treatment Reminders Order Date Submit Date Provider Last Modified By Organization Details Last Modified Time Details Appointments ANNUAL EXAM 2025 10:30A TINO JOHNSON Not available Not available Not available Lab hemogl obin A1c, QN, blood 2024 025 [facility], [place], [address], 03/18/2025 14:13:08 CMP, serum or plasma 2024 025 [facility], [place], [address], 12/01/2024 14:56:44 phosph orus, serum or plasma 2024 025 [facility], [place], [address], 12/01/2024 14:56:44 vitami n D, 25-hyd lydia, total, serum 2024 025 [facility], [place], [address], 12/01/2024 14:56:44 PTH (parat hyroid hormon e), intact + calciu m, serum or plasma 2024 025 [facility], [place], [address], 03/18/2025 14:09:27 hemogl obin A1c, QN, blood 2023 024 [facility], [place], [address], 05/06/2024 12:50:52 CMP, serum or plasma 2023 024 [facility], [place], [address], 04/30/2024 13:53:31 insuli n, serum 2023 024 [place], [place], [address], 05/07/2024 00:53:51 CBC w/ auto diff 2023 024 [facility], [place], [address], 04/30/2024 13:53:30 lipid panel, serum 2023 024 [place], [place], [address], 05/06/2024 12:46:13 vitami n D, 25-hyd lydia, total, serum 2023 024 [facility], [place], [address], 04/30/2024 13:53:30 PTH (parat hyroid hormon e), intact , serum or plasma 2023 024 [place] [facility], [place], [address], 05/06/2024 12:39:43 Referral otolar yngolo gist referr la 2024 025 [facility], [address] [place], [address], 05/15/2025 16:06:04 cardio logist referr la 2024 025 [facility], [address] [place], [address], 05/15/2025 16:07:41 urogyn ecolog ist referr la 2024 025 [facility] (Urogynecology), [address] [place], [address], 05/15/2025 16:06:23 urolog ist referr la 2024 025 [facility] Urogynecologist Scheduling Dept, [address] [place] [address], [address], 12/03/2024 08:58:16 endocr inolog y referr la 2024 025 [facility] Rick Abebe MD, [address] [place] [address] [address] [address], [place], [address], 12/03/2024 08:58:15 podiat rist referr la 2023 [email or web address] [place] [address] [facility], [address] [place], [place] [id number], [address], 05/02/2024 08:17:55 Procedures None record ed. Surgeries None record ed. Imaging None record ed. Medication Orders flutic asone propio adrianna 50 mcg/ac tuatio n nasal spray, suspen amanuel 2024 025 [facility], [address] [facility], [place], [address], 05/13/2025 11:12:48 Zepbou nd 7.5 mg/0.5 mL subcut aneous pen inject or 2024 025 [facility], [address] [place], [address], 05/13/2025 11:08:14 cephal exin 500 mg capsul e 2024 025 [facility], [address] [place], [address], 05/13/2025 11:12:09 Difluc an 150 mg tablet 2024 025 [facility], [address] [place], [address], 10/28/2024 10:59:22 predni sone 10 mg tablet 2024 025 [facility], [address] [place], [address], 05/13/2025 11:11:58 omepra zole 20 mg capsul e,jimmy yed releas e 2023 024 [facility] [address] [place], [address], 04/30/2024 13:55:16 Patient TargetsNo targets recorded. Patient InstructionsNo instructions recorded. Reason for Referral Psychologist Clinical Referral for Plan tar fasciitis of right foot ongoing plantar fascitiis of the right foot Referring Physician: Erin Bone, Internal Medicine, Encounter Date: 04/30/2024 Endocrinology Referral for H ypoparathyroidism hypoparathyroidism, developing persistant tonsil + kidney stones on the calcium supplements Referring Physician: Erin Bone, Internal Medicine, Encounter Date: 12/01/2024 Urologist Referral for Chron ic cystitis chronic interstitial cystitis Referring Physician: Erin Bone, Internal Medicine, Encounter Date: 12/01/2024 Inventory Accountant Referral fo r Deviated nasal septum needs updated PCP referral Referring Physician: Erin Bone [facility], Encounter Date: 05/13/2025 Urogynecologist Referral for Chronic primary bladder pain syndrome interstitial cysitis, consult for alt treatment Referring Physician: Erin Bone [facility], Encounter Date: 05/13/2025 Bisque Placer Referral for At ypical chest pain hx of EDS with palpitations, chest pain, sob, syncope Referring Physician: Erin Bone [facility], Encounter Date: 05/13/2025 Results Created Date Observation Date Name Description Value Unit Range Abnormal Flag Note LastModifiedBy Organization Detail LastModifiedTime 02/19/2002/18/2025 mathew TARIQ y No observ ation record ed. [email or web address] [facility] (Medical Records) [address] [place] [address], [address], 02/19/2025 11:21:56 Result Notes None recorded. Problems Name Problem SNOMED Code Status Onset Date Resolution Date Notes Provider Name and Address Organization Details Recorded Time Rupture of rotator cuff of right shoulder 24014488267 600933 Active 2017 Right shoulder s/p repair 2009 Nataly davidson [facility] 8 14:54:44 Recurren t urinary tract infectio n 359486715 Active 2017 IC Nataly davidson [facility] 8 14:55:22 Fibromya lgia 928385930 Active 2017 Nataly davidson [facility] 8 14:55:34 Low back pain 631438212 Active [address] [facility] 8 14:55:59 Chronic intersti tial cystitis 156353576 Active 2017 Nataly davidson [facility] 8 14:58:07 History of depressi on 231002599 Active 2017 Nataly davidson [facility] 8 14:58:20 Hemorrho ids 82829117 Active 2017 [facility] 8 14:58:32 Irritabl e bowel syndrome 39185920 Active 2017 [facility] 8 14:58:37 Asthma 811437667 Active 2017 [facility] 8 14:58:46 Migraine 7[address]10404 Active 2017 Dr. 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 610638161 Active 2017 Natalyrekha Rodriguez [facility] 8 15:08:37 Impaired fasting glycemia 809626131 Active 2023 TINO DANIELSON [address] [place], [address], [facility] 4 13:44:27 Plantar fasciiti s of right foot 35339149893 832238 Active 2023 TINO DANIELSON [address] [place], [address], [facility] 4 13:50:23 Gastroes ophageal reflux disease 331689274 Active 2023 TINO DANIELSON [address] [place], [address], [facility] 4 13:54:20 Exacerba tion of moderate persiste nt asthma 143057911 Active 2024 TINO DANIELSON [address] [place], [address], [facility] 5 12:13:28 Influenz a caused by Influenz a A virus 662577142 Active 2024 TINO DANIELSON [address] [place], [address], [facility] 5 12:14:02 Expirato ry wheezing 2770598 Active 2024 TINO DANIELSON [address] [place], [address], [facility] 5 12:14:13 Cellulit is of lower limb 690467518 Active 2024 TINO DANIELSON [address] [place], [address], [facility] 5 10:46:45 Calcanea l spur of right foot 26072797496 9100 Active 2024 TINO DANIELSON [address] [place], [address], [facility] 5 10:53:05 Candidia sis of vagina 31512649 Active 2024 TINO DANIELSON [address] [place], [address], [facility] 5 10:58:20 Chronic cystitis 30756132 Active 2024 TINO DANIELSON [address] [place], [address], [facility] 5 15:01:00 Body mass index 40+ - severely obese 832288107 Active 2024 TINO DANIELSON [address] [place], [address], [facility] 5 11:09:12 Deviated nasal septum 546946699 Active 2024 TINO DANIELSON [address] [place], [address], [facility] 5 10:51:56 Chronic primary bladder pain syndrome Active 2024 TINO DANIELSON [address] [place], [address], [facility] 5 10:59:17 Atypical chest pain 421567621 Active 2024 TINO DANIELSON [address] [place], [address], [facility] 5 11:01:54 Allergic rhinitis 18575774 Active 2024 TINO DANIELSON [address] [place], [address], [facility] 5 11:12:26 Problem Notes None recorded. Medical Equipment None Reported. Allergies Allergen ID Allergen Name Allergen Category Reaction Reaction Severity Criticality Documentation Date Start Date Code Code System Note Provider Name and Address Organization Details Recorded Time 9 Zoloft medicatio n hives Not available Not available 05/01/2018 89877 RxNorm Nataly davidson [facility] 8 14:47:25 2280 Robaxin medicatio n Not available Not available Not available 05/01/201829773 5 RxNorm Nataly davidson [facility] 8 14:47:43 2281 Prozac medicatio n Not available Not available Not available 05/01/2018 94025 RxNorm made depre ssion worse Nataly davidson [facility] 8 14:48:18 2447 Substance with sulfonami de structure and antibacte rial mechanism of action (substanc e) medicatio n diarrhea Not available Not available 06/11/2018 22363 8003 SNOMED Nataly davidson [facility] 8 11:33:19 3360 clindamyc in Not available diarrhea vomiting Not available Not available Not available 03/26/2019 2582 RxNorm Nataly david[facility] 9 08:58:04 Medications Name Sig Start Date [...] PLEASE SEE ATTACHED FOR DETAILED DIRECTION S 05/13 completed Not Available Not Available Not Available tizanidine 2 mg tablet 03/26 completed Not Available Not Available Not Available clindamycin HCl 300 mg capsule 03/26 completed Not Available Not Available Not Available albuterol sulfate 2.5 mg/3 mL (0.083 %) solution for nebulizatio n USE 1 VIAL IN NEBULIZER THREE TIMES DAILY active Not Available Not Available No t [...] MOUTH EVERY 6 HOURS FOR 5 DAYS 05/13 completed Not Available Not Available Not Available ranitidine 150 mg tablet 05/03 completed [...] No t Available Nasonex 50 mcg/actuati on Dalton 05/03 completed Not Available Not Available Not Available albuterol sulfate HFA 90 mcg/actuati on aerosol inhaler INHALE 2 PUFFS BY MOUTH THREE TIMES DAILY NEEDED active Not Available Not Available No t Available ondansetron 4 mg disintegrat ing tablet 03/26 completed Not Available Not Available Not Available fluticasone propionate 50 mcg/actuati on nasal spray,suspe nsion USE 1 SPRAY(S) IN EACH NOSTRIL TWICE DAILY active Not Available Not Available No t [...] completed Not Available Not Available Not Available nitrofurant oin monohydrate /macrocryst als 100 [...] Not Available Not Available No t Available Breyna 80 mcg-4.5 mcg/actuati on HFA aerosol inhaler INHALE 2 PUFFS BY MOUTH TWICE DAILY NEEDED active Not Available Not Available No t Available Zepbound 5 mg/0.5 mL subcutaneou s pen injector INJECT 1 PEN (5 MG) SUBCUTANE OUSLY ONCE A WEEK DIRECTED 05/13 completed Not Available Not Available Not Available Zepbound 2.5 mg/0.5 mL subcutaneou s pen injector INJECT 1 PEN (0.5 ML) SUBCUTANE OUSLY ONCE A WEEK active Not Available Not Available No t Available Zepbound 7.5 mg/0.5 mL subcutaneou s pen injector INJECT 1 PEN SUBCUTANE OUSLY ONCE A WEEK active Not Available Not Available No t Available Vitals Date Recorded Body height Body mass index (BMI) Body weight Heart rate Oxygen saturation Oxygen saturation in Arterial blood by Pulse oximetry Systolic And Diastolic Provider Name and Address Organization Details Last Updated DateTime 5 155.58 cm 48.2 kg/m2 583297. 24 g 84 /min 98 % 98 % 122/70 mm[Hg] Aime Boone [facility] 5 10:38:28 Date Recorded Body height Body mass index (BMI) Body weight Heart rate Oxygen saturation Oxygen saturation in Arterial blood by Pulse oximetry Systolic And Diastolic Provider Name and Address Organization Details Last Updated DateTime 5 155.58 cm 47.2 kg/m2 053955. 56 g 88 /min 98 % 98 % 124/74 mm[Hg] Leila Ring [facility] 5 14:36:44 Date Recorded Body height Body mass index (BMI) Body weight Heart rate Oxygen saturation Oxygen saturation in Arterial blood by Pulse oximetry Systolic And Diastolic Provider Name and Address Organization Details Last Updated DateTime 4 155.58 cm 50.4 kg/m2 948013. 27 g 79 /min 96 % 96 % 128/88 mm[Hg] Leila Ring [facility] 4 13:38:02 Date Recorded Body height Body mass index (BMI) Body weight Oxygen saturation Oxygen saturation in Arterial blood by Pulse oximetry Heart rate Systolic And Diastolic Provider Name and Address Organization Details Last Updated DateTime 5 155.58 cm 45 kg/m2 065099. 17 g 98 % 98 % 80 /min 120/70 mm[Hg] Uniquedarlene Higginsmond [facility] 5 10:25:56 Social History Question Answer Notes LastModified by Organizat ion Details LastModified Time Tobacco Smoking Status [facility]oker Not Available [facility]/22/2020 03:36:24 What Was The Date Of Your Most Recent Tobacco Screening? 05/13/2025 [email or web address] Information not available 05/13/2025 How Many Years Have You Smoked Tobacco? 6 [id number] Information not available 06/22/2020 Sex: Unknown Functional [...] Td (adult) 09/20/19 12 completed Nataly davidson [facility] 06/10/2018 16:07:21 influenza, unspecified formulation 08/25/19 25 completed Leila davidson [facility] 08/26/2024 09:25:45 Pneumococcal conjugate PCV21, polysaccharide [id number] conjugate, PF 09/03/19 25 completed Leilaerasto davidson [facility] 09/05/2024 08:53:09 Influenza, split virus, quadrivalent, preservative 07/28/20 18 completed Nataly davidson [facility] 01/17/2019 14:49:08 Tdap 03/23/20 19 completed November [email or web address], [address], [facility] 03/26/2019 09:11:09 Influenza, split virus, quadrivalent, preservative 04/17/20 19 completed Nataly davidson [facility] 04/22/2019 09:14:45 Past Encounters Encounter ID Performer Location Encounter Start Date Encounter Closed Date Diagnosis/Indication Diagnosis SNOMED-CT Code Diagnosis ICD10 Code Diagnosis IMO Codes Diagnosis Note [id number] Jose Chauhan [facility] [address], [place] [address] 05/03/2018 11:30:48 05/03/2018 12:31:25 Sprain of ankle 48578493 S93.401A RICE air cast cane/crutc hes Pain in ri t lower limb 783564782 M79.604 as above Asthma 431970800 J45.90 9 quiet Blood pres sure above reference range 86584869 R03.0 mildly elevated working on weight continue to monitor [id number] Jose Chauhan [facility] [address],[place] [address] 05/28/2018 10:48:06 05/28/2018 13:29:31 Asthma 552873135 J45.909 quiet Chronic in terstitial cystitis 381893903 N30.10 Acute asthma 885815168 J 45.901 Candidiasis of vagina 72 620799 B37.3 Gastroesop hageal reflux disease 372684063 K21.9 [id number] Jose Chauhan [facility] [address],[place] [address] 06/11/2018 11:27:07 06/11/2018 15:16:36 Abscess 103782055 L02.91 helaing well Cellulitis 288048361 L03 .90 healing well f/u if doesn't fully resolve Asthma 737030852 J45.90 9 quiet [id number] Jose Mayte Chauhan [facility] [address],[place] [address] 06/24/2018 10:22:16 06/24/2018 10:54:36 Cellulitis 441569561 L03.90 persists despite bactrim, although improve compared to initial presentati on cellulitis rash was marked and was advised to call if moves past that line f/u 1 week Asthma 695869394 J45.90 9 quiet [id number] Jose VillasenorBritney Chauhan [facility] [address], ite [facility] [place] [address] 07/02/2018 14:17:35 07/02/2018 16:45:48 Cellulitis 872371893 L03.90 continue doxy, improving will recheck sunday and consider extending the doxy Asthma 411294509 J45.90 9 quiet [id number] Jose VillasenorBritney Chauhan [facility] [address], [place] [address] 07/08/2018 11:04:23 07/08/2018 12:02:34 Cellulitis 188929373 L03.90 seems to be resolving, will defer further abx and monitor. Asthma 888728694 J45.90 9 quiet [id number] Jose Chauhan [facility] [address], [place] [address] 07/30/2018 09:26:24 07/30/2018 10:14:12 Adult health examination 147452671 Z00.01 Active or passive immunization 929708085 Z23 Asthma 066940796 J45.90 9 quiet Vitamin D deficiency 347 97542 E55.9 Body mass index 40+ - severely obese 007623676 Z68.42 healthy diet and exercise [id number] Jose Chauhan [facility] [address], [place] [address] 09/13/2018 11:04:01 09/13/2018 11:45:35 Fall down stairs 207094411 W10.9XXA with injuries as seen below tylenol +/- naproxen sparingly rest, ice, f/u as needed Asthma 509065492 J45.90 9 quiet Low back pain 355957435 M54.5 acute on chronic Pain of hip region 28883 002 M25.559 acute due to fall Pain of le ft elbow joint 0970787549 0741436 M25.522 acute due to fall Neck pain 58362316 M54.2 acute due fall [id number] Jose Chauhan [facility] [address],[place] [address] 01/08/2019 10:08:14 01/08/2019 10:33:18 C-reactive protein outside reference range 898794009 R79.82 repeat crp, esr and check cbc and cmp Vitamin D deficiency 347 57096 E55.9 Irritable bowel syndrome 64728542 K58.9 Dysphagia 43397159 R13.1 0 Tick bite 37676819 W57.X XXA [id number] Jose Chauhan [facility] [address],[place] [address] 01/17/2019 14:35:54 01/17/2019 15:45:43 Lymphadenopathy 04380761 R59.9 C-reactive protein outside reference range 648518581 R79.82 remains elevated Chronic in terstitial cystitis 932321225 N30.10 [id number] Jose Chauhan [facility] [address],[place] [address] 02/05/2019 10:43:57 02/05/2019 13:37:53 Lymphadenopathy 87470918 R59.9 had to reschedule u/s C-reactive protein outside reference range 122572360 R79.82 remains elevated will r/o cardiac cause Body mass index 40+ - severely obese 380356686 Z68.42 healthy diet and exercise Atypical chest pain 1025 63941 R07.89 right sided and right shoulder probably unlikely cardiac related, but in setting of elevated CRP, obesity and fhx, will r/o [id number] Jose Chauhan [facility] Medicine [address] [place] [address] 03/26/2019 08:47:11 03/26/2019 09:22:14 Laceration of toe 012680441 S91.112A healing well Migraine 65469766 G43.90 9 C-reactive protein outside reference range 894794325 R79.82 remains elevated no cause has been found despite extensive work up will continue to monitor [id number] Jose Chauhan [facility] [address] [place] [address] 04/30/2024 13:22:55 04/30/2024 14:00:44 Depression screening 162551736 Z13.31 SCREENING NEGATIVE Impaired f asting glycemia 056375376 R73.01 will set up with set up with repeat lab work Hypoparathyroidism 43887 004 E20.0 needs recheck Vitamin D deficiency 347 71289 E55.9 needs recheck Asthma 434918846 J45.20 stable Plantar fa sciitis of right foot 8691919296 7053529 M72.2 will set up with podiatry Gastroesop hageal reflux disease 012024628 K21.9 will set up with omeprazole [id number] Jose Chauhan [facility] [address] [place] [address] 10/08/2024 11:24:48 10/08/2024 13:29:41 Exacerbation of moderate persistent asthma 973467272 J45.41 Asthma 326193966 J45.40 stable Influenza caused by Influenza A virus 868572211 J09.X2 Expiratory wheezing 9763 007 R06.2 start pred taper [id number] Jose Chauhan [facility] [address] [place] [address] 10/28/2024 10:27:13 10/28/2024 11:37:28 Cellulitis of lower limb 423745479 L03.119 right upper medial thigh, started from ingrown hair high risk for abscess formation Impaired f asting glycemia 181323570 R73.01 will set up with set up with repeat lab work Vitamin D deficiency 347 74330 E55.9 needs recheck Asthma 382144585 J45.40 stable Calcaneal spur of right foot 3448546441 07287 M77.31 set up with orthotic Candidiasis of vagina 72 757648 B37.31 will set up with med in case she gets the yeast infection [id number] Jose Chauhan [facility] [address],[place] [address] 12/01/2024 14:29:28 12/01/2024 15:29:48 Morbid obesity 026130258 E66.01 working Hypoparathyroidism 10256 004 E20.0 has tonsil stones, most likely related Impaired f asting glycemia 002337148 R73.01 will set up with set up with repeat lab work Kidney stone 11503349 N2 0.0 tonsil stones and kidney stone with the parathyroi d mathewwiradha refer back to endocrinol ogist Vitamin D deficiency 347 97783 E55.9 needs recheck Chronic cystitis 3872876 2 N30.20 [id number] Jose Chauhan [facility] Medicine [address], [place] [address] 05/13/2025 09:45:44 05/13/2025 13:41:52 Depression screening 462314328 Z13.31 SCREENING NEGATIVE Deviated nasal septum 12 2513223 J34.2 827570 General ex amination of patient 245197782 Z00.00 944571 BP is excellent Chronic pr imary bladder pain syndrome 4023008194 7104 N30.10 [id number] [facility] referral to [facility] for better options for treatment Atypical chest pain 1025 02825 R07.89 645229 Body mass index 40+ - severely obese 207644815 E66.01 cont with next dose Allergic rhinitis 433865 04 J30.9 6413058 Health Concerns Section Related Observation LastModified by Organization Detai ls LastModified Time None Recorded Concern Status LastModified by Organization Details LastModified Time None Recorded Advance Directives Directive None Recorded Payers Insurance Date Sequence Insurance Name Policy Number Policy Rubin Covered Member ID Rubin Member ID Guarantor Name 05/10/2025 2 [place] [facility] Park Horne [id number] Park Horne 05/10/2025 1 MEDICARE B-[place]: [facility] [employer] Park Horne [id number] Park Horne Notes Date Note Type Note Provider Name and Address Organization Details Recorded Time 4 text/html ROS as noted in the HPI Re-establish visit the patient was seen at for dizziness, no specific causes, told her it was because of fluid in the ear, still getting dizzinesssuggested trialng anti-histamine and flonase the patient needs repeat blood work will need a pod referral for her right foot needs refill chart updated suggested looking into new insurance for coverage for CT d/o clinic in [place] seeing if her A1c is diabetic range to start on ozempic for patient otherwise doing will TINO DANIELSON [address] [place], [address], [facility] 04/30/2024 14:00:15 5 text/html ROS as noted in the HPI c/o uri and asthma exacerbation The patient is participating in this appointment via telemedicine communication with a phone call/video calling service ([employer])The patient consents to use of these platforms [...] likely has flu A TINO DANIELSON [address] [facility], [place], [address], [facility] 10/08/2024 12:20:51 5 text/html ROS as noted in the HPI f/u med the patient has her holter monitor placed, will get it off on the patient has pain management for the [...] otherwise is doing well TINO DANIELSON [address] [place], [address], [facility] 10/28/2024 11:00:24 5 text/html ROS as noted in the HPI 1 mos f/u the patient is doing [...] will recheck her levels TINO DANIELSON [address] [place], [address], [facility] 12/01/2024 15:03:19 5 text/html Annual WellnessReported by PatientSocial/Behaviora l HistoryFor diet and nutrition, patient reportshealthy diet. For fracture risk, patient reportsno history of fractures,no recent explained fracture,no sudden unexplained fractures, andno previous musculoskeletal injuries. For physical activity, patient reportsexercises on a regular basis,recent increase in physical activity, andgood physical condition. For additional lifestyle factors, patient reportsno tobacco use,no alcohol intake, andstopped drinking alcohol.Mental Status:For depression risk, patient reportsnever feels sad, empty, or tearful,no loss of interest in activities,no significant changes in weight,no sleep disturbances or insomnia,no agitation,no loss of energy,no feelings of worthlessness or guilt,no thoughts of suicide,no history of depression, andno history of mood disorders.Functional AbilityFor hearing, patient reportsno loss of hearing. For vision, patient reportsno vision problems.ROS as noted in the HPI TINO DANIELSON [address] [place], [address], [place] [facility] 05/13/2025 11:13:30 OBGyn Episode No OBEpisode recorded.
--- OUTSIDE RECORDS SUMMARY | 2025-06-18 10:23 | XMS_ITS | Encounter Summary ---
Author Organization [facility] Address [address] [place] [address] [place] [address] Phone Care Team Providers Care Substance Abuse Nurse Name Role Phone Jose Chauhan DO Primary Care Provider [phone] Devika Ceja DO Primary Care Provide r Jose Chauhan DO Primary Care Provider [phone] Encounter Details Date Type Department Care Team (Latest Contact Info) Description 01/08/2019 Transcribe Orders [facility] [address] [place] [address] Audelia Stevenson PA-C [address] [place] [address] [email or web address] Elevated C-reactive protein (CRP) (Primary Dx); Nonvenomous [...] Description 07/03/2025 2:30 PM EST Office Visit [facility] Center for Urogynecology on the [place] [address] [facility] 2nd [place] [address] Torie Dominguez MD, MS [address] [facility], [address] Department of Obstetrics [place] [address] [email or web address] 08/11/2025 3:30 PM EST Office Visit [facility] Cardiovascular Clinic [address] [place] [address] Unknown, Unknown, Hesham Cramer [address] [place] [address] [email or web address] documented as of this encounter Results * Babesia serology (01/08/2019 10:52 AM EDT) Pathologist [facility] Babesia microti IgG <1:64 <1:64 titer [facility] Comment: (NOTE) ADDITIONAL INFORMATION This test was developed using an analyte specific reagent. Its performance characteristics were determined by [facility] in a manner consistent with CLIA requirements. This test has not been cleared or approved by the U.S. Food and Drug Administration. Blood (Blood) 01/08/2019 10: 52 AM EDT 01/08/2019 11:11 AM EDT November Elva TRUONG MICROBIOLOGY - GENERAL ORDER MALDONADO Final Result [facility] [address] [place] [address] * Q fever antibody (01/08/2019 10:52 AM EDT) QFVR PHASE I IGG <1:16 <1:16 [facility]PATH [facility] MALONEY QFVR PHASE II IGG <1:16 <1:16 [facility]PATH [address] DR EtienneFVR PHASE I IGM <1:16 <1:16 [facility] MALONEY QFVR PHASE II IGM <1:16 <1:16 [facility] [place] Q FEVER INTERP SEE NOTE [facility] [place] Comment: (NOTE) Negative. No antibody detected. This [...] ORDER MALDONADO Final Result Performing Organization Address [facility] de Phone Number [facility] [place] [address] * Ehrlichia chaffeensis (HME) antibody (01/08/2019 10:52 AM EDT) Pathologist [facility] EHRLICHIA CHAFF ([facility]) AB, IGG <1:64 <1:64 TITER [facility]PATH SU[facility]IOR MALONEY Comment: (NOTE) ADDITIONAL INFORMATION This test was developed using an analyte specific reagent. Its performance characteristics were determined by [facility] in a manner consistent with CLIA requirements. This test has not been cleared or approved by the U.S. Food and Drug Administration. Blood 01/08/2019 10:5 2 AM EDT 01/08/2019 11:11 AM EDT Audelia Stevenson PA-C LAB BLOOD ORDERABLES Final R esult Performing Organization Address [facility] de Phone Number [facility] [address] * Lyme screen with reflex to Western blot, blood (01/08/2019 10:52 AM EDT) Lyme AB IgG Negative Negative [facility] Lyme AB IgM Negative Negative [facility] Blood 01/08/2019 10:5 2 AM EDT 01/08/2019 11:11 AM EDT November Elva TRUONG LAB BLOOD ORDERABLES Final R esult [address] [address] * Comprehensive metabolic panel (01/08/2019 10:52 AM EDT) SODIUM 139 133 - 146 mmol/L [facility] POTASSIUM 3.9 3.3 - 5.1 mmol/L [facility] CHLORIDE 101 96 - 108 mmol/L [facility] CO2 25 21 - 35 mmol/L [facility] BUN 17 6 - 19 mg/dL [facility] CREATININE 0.70 0.5 - 1.5 mg/dL [facility] GLUCOSE 93 70 - 99 mg/dL [facility] ALBUMIN 3.9 3.9 - 4.8 g/dL [facility] TOTAL PROTEIN 7.5 6.5 - 8.0 g/dL [facility] CALCIUM 9.4 8.4 - 10.3 mg/dL [facility] ALKALINE PHOSPHATASE 79 39 - 117 U/L [facility] TOTAL BILIRUBIN 0.3 0.0 - 1.2 mg/dL [facility] AST 16 0 - 37 U/L [facility] ALT 11 0 - 40 U/L [facility] GLOBULIN 3.6 1 - 4.8 g/dL [facility] EGFR 111 >59 mL/min/1.7 3m2 [facility] Comment:If patient is black, multiply result by 1.159. Estimated glomerular filtration rate calculated using the CKD-EPI equation. ANION GAP 17 10 - 20 mmol/L [facility] Blood 01/08/2019 10:5 2 AM EDT 01/08/2019 11:11 AM EDT November Elva TRUONG LAB BLOOD ORDERABLES Final R esult [address] [place] [address] * (ABNORMAL) CBC and differential (01/08/2019 10:52 AM EDT) WBC 8.65 3.40 - 11.20 K/uL [facility] RBC 4.45 3.80 - 4.80 M/uL [facility] HGB 11.8(L) 12.0 - 15.0 g/dL [facility] HCT 36.1 36.0 - 46.0 % [facility] PLT 384 130 - 400 K/uL [facility] MCV 81.1 79.0 - 98.0 fL [facility] MCH 26.5(L) 27.0 - 34.8 pg [facility] MCHC 32.7 31.5 - 36.0 g/dL [facility] RDW 13.9 10.8 - 14.6 % [facility] MPV 11.7 9.4 - 12.4 fl [facility] NRBC 0.00 0.00 /100 WBCs [facility] ABSOLUTE NRBC 0.00 0.00 K/uL [facility] DIFF METHOD Auto [facility] NEUTS 68.0 45.30 - 77.70 % [facility] LYMPHS 22.9 12.30 - 39.70 % [facility] MONOS 7.5 4.10 - 12.80 % [facility] EOS 0.9 0 - 7.2 % [facility] BASOS 0.5 0 - 2.80 % [facility] Granulocytes, immature (%) 0.2 0.0 - 0.9 % [facility] ABSOLUTE NEUTS 5.88 1.40 - 7.70 K/uL [facility] ABSOLUTE LYMPHS 1.98 0.60 - 3.20 K/uL [facility] ABSOLUTE MONOS 0.65(H) 0.11 - 0.59 K/uL [facility] ABSOLUTE EOS 0.08 0.01 - 0.50 K/uL [facility] ABSOLUTE BASOS 0.04 0.00 - 0.08 K/uL [facility] Granulocytes, immature 0.02 0.00 - 0.05 K/uL [facility] Blood 01/08/2019 10:5 2 AM EDT 01/08/2019 11:11 AM EDT November [facility] LAB BLOOD ORDERABLES Final R esult Performing Organization Address [facility] Co de Phone Number [address] [address] * (ABNORMAL) Sedimentation rate (ESR) (01/08/2019 10:52 AM EDT) ESR 26(H) 0 - 20 mm/h [facility] Blood 01/08/2019 10:5 2 AM EDT 01/08/2019 11:11 AM EDT [facility] LAB BLOOD ORDERABLES Final R esult Performing Organization Address [facility] Co de Phone Number [address] [address] * (ABNORMAL) C-reactive protein, high sensitivity (01/08/2019 10:52 AM EDT) CRP, HIGH SENSITIVITY 36.1(H) 0.0 - 5.0 mg/L [facility] Comment: Interpretation: hsCRP level (mg/L) Relative Risk <1.0 Low 1.0 - 3.0 Average >3.0 High Neonates (0-3 weeks): 0.1 - 4.1 mg/L Children (2 months - 15 years): 0.1 - 2.8 mg/L Blood 01/08/2019 10:5 2 AM EDT 01/08/2019 11:11 AM EDT Audelia [facility] LAB BLOOD ORDERABLES Final R esult Performing Organization Address [facility] Co de Phone Number [address] [address] documented in this encounter Visit Diagnoses Diagnosis Elevated C-reactive protein (CRP)- Primary Nonvenomous insect bite of face without infection, initial encounter documented in this encounter Additional Health Concerns Infection Onset Date Last Indicated Resolved Time CoV-Exposed Comment:Recent close contact documented in the Travel/Symptom Screening Form 08/01/2023 08/12/2023 1:[address] documented as of this encounter Care Teams Substance Abuse Nurse Relationship Specialty Start Date End Date Jose Chauhan DO [email or web address] PCP - General 06/07/17 06/15/19 Devika Ceja DO [address] [place] [address] 1 [place] [address] PCP - General Internal Medicine 06/16/19 12/17/24 Jose Chauhan DO [address] [facility] [place] [address] [email or web address] PCP - General Internal Medicine 12/18/24 documented as of this encounter Additional Source Comments The information contained in this document represents components of the legal health record. It is not the complete legal health record.[facility]
--- OUTSIDE RECORDS SUMMARY | 2025-06-18 10:23 | XMS_ITS | Encounter Summary ---
Author Organization [facility] Address [address] [place] [address] Phone Care Team Providers Care Music Assistant Name Role Phone Jose Chauhan DO Primary Care Provider [phone] Devika Ceja DO Primary Care Provide r Jose Chauhan DO Primary Care Provider [phone] Encounter Details Date Type Department Care Team (Latest Contact Info) Description 01/08/2019 Transcribe Orders Virtual Department [address] [place] [address] Audelia Stevenson PA-C [address] [place] [address] [email or web address] Dysphagia, unspecified type (Primary Dx) Social History [...] Description 07/03/2025 2:30 PM EST Office Visit [facility] Center for Urogynecology on the [place] [address] [facility] 2nd [place] [address] Torie Dominguez MD, MS [address] [facility], [address] Department of Obstetric[place] [address] [email or web address] 08/11/2025 3:30 PM EST Office Visit [facility] Clinic [address] [place] [address] Unknown, Unknown, Hesham Cramer [address] [place] [address] [email or web address] documented as of this encounter Visit Diagnoses Diagnosis Dysphagia, unspecified type- Primary documented in this encounter Additional Health Concerns Infection Onset Date Last Indicated Resolved Time CoV-Exposed Comment:Recent close contact documented in the Travel/Symptom Screening Form 08/01/2023 08/12/2023 1:[address] documented as of this encounter Care Teams Music Assistant Relationship Specialty Start Date End Date Jose Chauhan DO PCP - General 06/07/17 06/15/19 Devika Ceja DO [address] [place] [address] [address] [place] [address] PCP - General Internal Medicine 06/16/19 12/17/24 Jose Chauhan DO [address] [facility] [place] [address] PCP - General Internal Medicine 12/18/24 documented as of this encounter Additional Source Comments The information contained in this document represents components of the legal health record. It is not the complete legal health record.[facility]
--- OUTSIDE RECORDS SUMMARY | 2025-06-18 10:23 | XMS_ITS | Data Portability ---
Author Organization [facility], [address] Address [address] [place] [address] Assessment No assessment recorded. Plan of Treatment Reminders Order Date Submit Date Provider Last Modified By Organization Details Last Modified Time Details Appointments None recorded. Lab None recorded. Referral None recorded. Procedures None recorded. Surgeries None recorded. Imaging None recorded. Medication Orders ofloxacin 0.3 % eye drops 2023 024 [facility][id number], [address] [place], [address], 15:05:36 Patient TargetsNo targets recorded. Patient Instructions Encounter Date Encounter Id Patient Instructions Last Modified By Organization Details Last Modified Time 01/13/2024 [id number] You can take ove r the counter tylenol or ibuprofen per package instructions for the pain. See printed instructions. Follow-up with your doctor if no improvement in 3 days. Seek Emergency Medical evaluation for any worsening symptoms. [email or web address] Not available 01/13/2024 15:05:13 Use prescribed antibiotic [...] the eyelid Redness spreading around the eye [email or web address] Not available 01/13/2024 15:05:34 Reason for Referral None Reported. Medical Equipment None Reported. Allergies Allergen ID Allergen Name Allergen Category Reaction Reaction Severity Criticality Documentation Date Start Date Code Code System Note Provider Name and Address Organization Details Recorded Time [id number] Substance with sulfonami de structure and antibacte rial mechanism of action (substanc e) medicatio n diarrhea Not available Not available 01/13/2024 99785 8003 SNOMED TINO Chairez - [facility] [...] Pulse oximetry Heart rate Body temperature Systolic And Diastolic Provider Name and Address Organization Details Last Updated DateTime 4 152.4 cm 52.3 kg/m2 666717. 76 g 96 % 96 % 79 /min 98.6 [degF] 126/85 mm[Hg] Susie Humphrey PA - [facility] 4 14:22:21 Social History Question Answer Notes LastModified by [facility] Details LastModified Time Have You Had A [...] Functional Status Question Answer Note LastModified by [facility] Details LastModified Time Do you use any [...] ICD10 Code Diagnosis IMO Codes Diagnosis Note [id number] [address] [place] [address] 11/08/2020 10:01:25 11/08/2020 10:54:[id number] [place] [address] 01/19/2020 09:56:42 01/19/2020 10:55:[id number] [place] [address] 7 11/16/2015 08:36:05 11/16/2015 09:17:16 [id number] [address] [place] [address]296 7 06/14/2020 09:11:18 06/14/2020 11:01:24 [id number] [address] [place] [address] 17990-412 7 02/08/2018 11:55:46 02/08/2018 12:23:33 [id number] [address] [place] [address] 7 03/23/2019 14:54:40 03/23/2019 15:43:57 [id number] [address] [place] [address] 7 07/09/2017 12:51:45 07/09/2017 13:34:[id number] [address] [place] [address] 06/14/2020 08:32:12 06/14/2020 14:20:46 [id number] [address] [place] [address]43[address]580 7 07/28/2017 09:40:14 07/28/2017 10:09:06 [id number] [address] [place] [address] 08765[address]768 7 07/31/2016 18:36:45 07/31/2016 19:44:38 [id number] [address] [place] [address] 7 01/11/2020 08:03:23 01/11/2020 08:33:50 [id number] [address] [address] [place] [address] 47[address]588 7 06/14/2019 10:27:03 06/14/2019 11:44:36 [id number] [address] [place] [address] 31294-373 7 07/13/2020 15:24:00 07/13/2020 17:56:15 [id number] [address] [address] [place] [address] 04376-521 7 05/02/2020 18:48:38 05/02/2020 19:23:52 [id number] [address] [place] [address] 69383[address]813 7 01/20/2016 19:37:40 01/20/2016 20:35:00 [id number] [address] [address] [place] [address] 7 08/07/2016 15:19:07 08/07/2016 16:02:44 [id number] [address] [address] [place] [address] 79166-016 7 08/20/2020 17:11:12 08/20/2020 18:28:53 [id number] [address] [address] [place] [address] 73081-456 7 12/26/2015 15:18:18 12/26/2015 15:24:12 [id number] [address] [address] [place] [address] 22887-508 7 06/07/2018 10:56:15 06/07/2018 12:09:58 [id number] [address] [address] [place] [address]1979[address]920 7 04/28/2018 08:51:33 04/28/2018 09:41:[id number] [place], [place] [address] [address] [place] [address] 94243-912 7 11/16/2017 10:04:39 11/16/2017 10:30:[id number] [place] [address] [address] [place] [address] 67414-463 7 06/26/2016 11:30:54 06/26/2016 12:32:[id number] [place] [address] [address] [place] [address] 46938-708 7 10/08/2018 18:06:19 10/08/2018 19:19:58 [id number] RADHA KHAN MD [address] [place] [address] 28329-491 7 01/13/2024 13:32:56 01/13/2024 15:45:03 Acute conjunctivitis of right eye [id number] H10.31 Health Concerns Section Related Observation LastModified by Organization Detai ls LastModified Time None Recorded Concern Status LastModified by Organization Details LastModified Time None Recorded Advance Directives Directive None Recorded Payers Insurance Date Sequence Insurance Name Policy Number Policy Rubin Covered Member ID Rubin Member ID Guarantor Name 01/13/2024 1 [place] [employer] [employer] [place] [id number] [place] 04/02/2024 2 [place] [id number] [place] 01/13/2024 NORIDIAN - SPECIALITY CLAIMS (MEDICARE DME REGION A) Park Hines [id number] [place] Notes Date Note Type Note Provider Name and Address Organization Details Recorded Time 01/13/2024 text/html 43 yo female presents with a 1 wk hx of itchy right eye and 1 day hx of redness, swelling, and thick yellow d/c. RADHA KHAN MD [address] [facility] [address], [place], [address], [place] - [facility] 01/13/2024 15:11:39 OBGyn Episode No OBEpisode recorded.
--- OUTSIDE RECORDS SUMMARY | 2025-06-18 10:23 | XMS_ITS | Encounter Summary ---
Author Organization [facility] Address [address] [facility] [address] [place] [address] Phone Care Team Providers Care Unleavened Dough Mixer Name Role Phone NikolayJose goodrich [place] MEAD Primary Care Provider Encounter Details Date Type Department Care Team (Late st Contact Info) Description 03/23/2025 Transcribe Orders [facility] [address] [place] [address] Erin Bone PA [address] [place] [address] [place] [address] Social History Tobacco Use Types Packs/Day Years [...] Description 07/03/2025 2:30 PM EST Office Visit [facility] Center for Urogynecology on the [address] [address] Torie Dominguez MD, MS [address] [place] [address], [address] Department of Obstetric[place] [address] [email or web address] 08/11/2025 3:30 PM EST Office Visit [facility] Cardiovascular Clinic [address] [place] [address] Unknown, Unknown, Hesham Cramer [address] [place] [address] [email or web address] documented as of this encounter Visit Diagnoses Not on filedocumented in this encounter Care Teams Unleavened Dough Mixer Relationship Specialty Start Date End Date Jose Chauhan DO [address] [facility] [place] [address] [email or web address] PCP - General Internal Medicine 12/18/24 documented as of this encounter Additional Source Comments The information contained in this document represents components of the legal health record. It is not the complete legal health record.[facility]
--- OUTSIDE RECORDS SUMMARY | 2025-06-18 10:23 | XMS_ITS | Encounter Summary ---
Author Organization [facility] Address [address] [place] [address] Phone Care Team Providers Care Office Messenger Name Role Phone Jose Chauhan DO Primary Care Provider [phone] Devika Ceja DO Primary Care Provide r Nikolayjoleen Jose Hamilton DO Primary Care Provider [phone] Encounter Details Date Type Department Care Team (Latest Contact Info) Description 01/17/2019 Transcribe Orders Virtual Department 30 [place] [address] Audelia Stevenson PA-C [address] Juan [address]. [address] [place] [address] [email or web address] Enlarged lymph node (Primary Dx) Social History [...] Description 07/03/2025 2:30 PM EST Office Visit [facility] Center for Urogynecology on the [place] [address] [facility] 2nd [place] [address] Torie Dominguez MD, MS 500 [facility], [address] Department of Obstetrics [place] [address] [email or web address] 08/11/2025 3:30 PM EST Office Visit [facility] 70 [place] [address] Unknown, Unknown, Hesham Cramer [address] [place] [address] [email or web address] documented as of this encounter Results [...] significantly changed. Clinicalfollow-up recommended. POS - [id number] us November Elva TRUONG IMG US HEAD/NECK NON THYROID Final Result [...] documented as of this encounter Care Teams Office Messenger Relationship Specialty Start Date End Date Jose Chauhan DO PCP - General 06/07/17 06/15/19 Devika Ceja DO 75 [facility] 1 [place] [address] PCP - General Internal Medicine 06/16/19 12/17/24 Jose Chauhan DO 179 [facility] [place] [address] PCP - General Internal Medicine 12/18/24 documented as of this encounter Additional Source Comments The information contained in this document represents components of the legal health record. It is not the complete legal health record.[facility]
--- OUTSIDE RECORDS SUMMARY | 2025-06-18 10:24 | XMS_ITS | Encounter Summary ---
Author Organization [facility] Address [address] [place] [address] Phone Care Team Providers Care Branding Specialist Name Role Phone Jose Chauhan DO Primary Care Provider [phone] Devika Ceja DO Primary Care Provide r Jose Chauhan DO Primary Care Provider [phone] Encounter Details Date Type Department Care Team (Late st Contact Info) Description 12/25/2018 Procedure Pass [facility], [address] [address] Social History Tobacco Use Types Packs/Day Years [...] documented in this encounter Plan of Treatment Upcoming Encounters Date Type Department Care Team (Late st Contact Info) Description 07/03/2025 2:30 PM EST Office Visit [facility] Center for Urogynecology on the [place] [address] [facility] 2nd [place] [address] Torie Domniguez MD, MS 500 [facility], [address] Department of Obstetrics [place] [address] [email or web address] 08/11/2025 3:30 PM EST Office Visit [facility] 70 [place] [address] Unknown, Unknown, Hesham Cramer 75 [place] [address] [email or web address] documented as of this encounter Visit Diagnoses Not on filedocumented in this encounter Additional Health Concerns Infection Onset Date Last Indicated Resolved Time CoV-Exposed Comment:Recent close contact documented in the Travel/Symptom Screening Form 08/01/2023 08/12/2023 1:[address] documented as of this encounter Care Teams Branding Specialist Relationship Specialty Start Date End Date Jose Chauhan DO [email or web address] PCP - General 06/07/17 06/15/19 Devika Ceja DO [address] [address] PCP - General Internal Medicine 06/16/19 12/17/24 Jose Chauhan DO 179 [facility] [place] [address] [place] [address] [email or web address] PCP - General Internal Medicine 12/18/24 documented as of this encounter Additional Source Comments The information contained in this document represents components of the legal health record. It is not the complete legal health record.[facility]
--- OUTSIDE RECORDS SUMMARY | 2025-06-18 10:24 | XMS_ITS | Clinical Summary ---
Author Organization [facility] Address [address] [place] [address] Phone Care Team Providers Care Table Worker Name Role Phone Nikolayjoleen Jose Villasenor DO Primary Care Provider [phone] Allergies Active Allergy Reactions Criticality Noted Date [...] operative case but she will see an life specialist. Left knee pain 06/26/2019 Contusion of left [...] will continue to be treated by the cattle broker with elevation and an ankle support she [...] reagent. Its performance characteristics were determined by [facility] in a manner consistent with CLIA [...] reagent. Its performance characteristics were determined by [facility] in a manner consistent with CLIA [...] INFORMATION Method: Flow Cytometry Performing Laboratory CLIA# [id number] C REACTIVE PROTEIN 12/25/2018 32.5* 0.0 - [...] reduction and if necessary consultation with a maintenance equipment operator, and appropriate structured home exercise program may [...] reagent. Its performance characteristics were determined by [facility] in a manner consistent with CLIA [...] reagent. Its performance characteristics were determined by [facility] in a manner consistent with CLIA [...] INFORMATION Method: Flow Cytometry Performing Laboratory CLIA# [id number] C REACTIVE PROTEIN 12/25/2018 32.5* 0.0 - [...] completed her consultation and testing with the stamping machine operator at [facility] and I am waiting to receive these [...] of this 28-minute visit was spent in kpud-at-wedg conversation with the patient going over her [...] this 28 minute visit was spent in orqv-ld-[id number] conversation with the patient going over risks and benefits of CBD and current medications. He'll also need for cardiovascular exercise. Discussed her persistent but improved pain from osteoarthritis and impingement in the right shoulder and her sacroiliac dysfunction and her osteoarthritic right knee. Questions were answered. She is referred to a stamping machine operator who is also evaluating her daughter and [...] this 29 minute visit was spent in gwqi-bk-objc conversation with the patient going over pain [...] recently and also by a well-respected local jockey agent. She seems to see some association between [...] Team Description 03/23/2025 Transcribe Orders [facility] [address] [place] [address] Erin Bone PA 03/18/2025 10:39 AM EDT - 03/18/2025 11:59 PM EDT Hospital Encounter [facility] [address] [place] [address] Erin Bone PA Discharge Disposition: Home or Self Care 03/18/2025 Transcribe Orders [facility] [address] [place] [address] Erin Bone PA Idiopathic hypoparathyroidism (Primary Dx); [...] 09/25/2024 3:29 PM EST Plan of Treatment Upcoming Encounters Date Type Department Care Team (Late st Contact Info) Description 07/03/2025 2:30 PM EST Office Visit [facility] Center for Urogynecology on the [address] [address] Torie Dominguez MD, MS 500 [facility], [address] Department of Obst[place] [address] [email or web address] 08/11/2025 3:30 PM EST Office Visit [facility] 70 [place] [address] Unknown, Unknown, Hesham Cramer [address] [place] [address] [email or web address] Health Maintenance Due Date Last Done Comments DEPRESSION SCREENING 1994 SMOKING Hx and SMOKELESS TOBACCO SCREENING 1995 HIV ONE-TIME SCREENING (18-65 YEARS) 01/22/2000 PAP SMEAR 2003 MAMMOGRAM 2022 INFLUENZA VACCINE (#1) 2025 , 06/14/2020, 04/17/2019, Additional history exists COVID-19 VACCINE ( - 2024- season) 2025 04/20/2021, 01/03/2021 SCREENING FOR DIABETES [...] EDT) SODIUM 139 133 - 146 mmol/L [facility] POTASSIUM 3.9 3.3 - 5.1 mmol/L [facility] CHLORIDE 102 96 - 108 mmol/L [facility] CO2 25 21 - 35 mmol/L [facility] BUN 18 6 - 19 mg/dL [facility] CREATININE 0.60 0.5 - 1.5 mg/dL [facility] GLUCOSE 89 70 - 99 mg/dL [facility] ALBUMIN 4.0 3.9 - 4.8 g/dL [facility] TOTAL PROTEIN 7.2 6.5 - 8.0 g/dL [facility] CALCIUM 8.9 8.4 - 10.3 mg/dL [facility] ALKALINE PHOSPHATASE 108 39 - 117 U/L [facility] TOTAL BILIRUBIN 0.4 0.0 - 1.2 mg/dL [facility] AST 15 0 - 37 U/L [facility] ALT 12 0 - 40 U/L [facility] GLOBULIN 3.2 1 - 4.8 g/dL [facility] EGFR 114 >59 mL/min/1.7 3m2 [facility] Comment:Estimated glomerular filtration rate calculated using the CKD-EPI refit equation. ANION GAP 16 10 - 20 mmol/L [facility] Blood 03/18/2025 10:4 1 AM EDT 03/18/2025 10:43 AM EDT us Erin JIMÉNEZ LAB BLOOD ORDERABLES Final Result [facility] [address] [place] [address] * (ABNORMAL) 25-OH vitamin D (03/18/2025 10:41 AM EDT) 25 OH VIT D (TOTAL) 23(L) 30 - 60 ng/mL [facility] Blood 03/18/2025 10:4 1 AM EDT 03/18/2025 10:43 AM EDT Erin JIMÉNEZ LAB BLOOD ORDERABLES Final Result [address] [address] * Phosphorus (03/18/2025 10:41 AM EDT) PHOSPHORUS 3.2 2.7 - 4.5 mg/dL [facility] Blood 03/18/2025 10:4 1 AM EDT 03/18/2025 10:43 AM EDT Erin JIMÉNEZ LAB BLOOD ORDERABLES Final Result Performing Organization Address [facility]/ZIP Co de Phone Number [address] [address] * Parathyroid hormone (PTH) (03/18/2025 10:41 AM EDT) PARATHYROID HORMONE 32 15 - 65 pg/mL [facility] Blood 03/18/2025 10:4 1 AM EDT 03/18/2025 10:43 AM EDT Erin JIMÉNEZ LAB BLOOD ORDERABLES Final Result Performing Organization Address City/[facility]/ZIP Co de Phone Number [address] [address] * Hemoglobin A1c (03/18/2025 10:41 AM EDT) HEMOGLOBIN A1C 5.3 4.3 - 5.8 % [facility] Blood 03/18/2025 10:4 1 AM EDT 03/18/2025 10:43 AM EDT Erin JIMÉNEZ LAB BLOOD ORDERABLES Final Result Performing Organization Address City/[facility]/ZIP Co de Phone Number [address] [address] * Hepatitis C antibody, qualitative (01/30/2019 11:49 AM EDT) HCV Negative Negative [facility] Comment: This is a screening test and should be confirmed with molecular testing Blood 01/30/2019 11:4 9 AM EDT 01/30/2019 11:55 AM EDT us Dirk Boo MD LAB BLOOD ORDERABLES Final Result [facility] [address] [place] [address] from Last 3 Months or Most Recently Relevant to Health Maintenance Insurance MEDICARE PART A & B [facility] MEDICARE PART A & B Member Subscriber Plan / Payer (Ef fective 2016-Present) Name:Park Peres Member ID:[id number] Relation to Subscriber:Self Name:Park Peres Subscriber ID:[id number] Payer ID:[id number] Group ID:Not on file Type:Medicare Address: [facility] [employer] [facility] [address] [place] [phone] [place] [address] [place] [address] MEDICARE PART A & B [facility] [place] MEDICARE PART A & [place] PART [place] & B HEALTH MEDICARE PART A & [place] Care Teams Table Worker Relationship Specialty Start Date End Date Jose Chauhan DO [address] [place] [address] [email or web address] PCP - General Internal Medicine 12/18/24 Additional Source Comments The information contained in this document represents components of the legal health record. It is not the complete legal health record.[facility]
--- OUTSIDE RECORDS SUMMARY | 2025-06-18 10:24 | XMS_ITS | Encounter Summary ---
Author Organization [facility] Address [address] [place] [address] [place] [address] Phone Care Team Providers Care Interdisciplinary Professor Name Role Phone Jose Chauhan DO Primary Care Provider [phone] Devika Ceja DO Primary Care Provide r Jose Chauhan DO Primary Care Provider [phone] Encounter Details Date Type Department Care Team (Latest Contact Info) Description 02/21/2019 Transcribe Orders [facility] Laboratory [address] [place] [address] Audelia Stevenson PA-C [address] [place] [address] [email or web address] Elevated C-reactive protein (CRP) (Primary Dx) Social [...] Description 07/03/2025 2:30 PM EST Office Visit [facility] for Urogynecology on the [address] 2nd [place] [address] Torie Dominguez MD, MS [address] [facility], [address] Department of Obstetrics [place] [address] [email or web address] 08/11/2025 3:30 PM EST Office Visit [facility] Clinic [address] [place] [address] Unknown, Unknown, Hesham Cramer [address] [place] [address] [email or web address] documented as of this encounter Results * (ABNORMAL) C-reactive protein, high sensitivity (02/21/2019 3:36 PM EDT) CRP, HIGH SENSITIVITY 34.7(H) 0.0 - 5.0 mg/L [facility] Comment: Interpretation: hsCRP level (mg/L) Relative Risk <1.0 Low 1.0 - 3.0 Average >3.0 High Neonates (0-3 weeks): 0.1 - 4.1 mg/L Children (2 months - 15 years): 0.1 - 2.8 mg/L Blood 02/21/2019 3:36 PM EDT 02/21/2019 3:38 PM EDT November Elva TRUONG LAB BLOOD ORDERABLES Final R esult [facility] [address] [place] [address] documented in this encounter Visit Diagnoses Diagnosis Elevated C-reactive protein (CRP)- Primary documented in this encounter Additional Health Concerns Infection Onset Date Last Indicated Resolved Time CoV-Exposed Comment:Recent close contact documented in the Travel/Symptom Screening Form 08/01/2023 08/12/2023 1:[address] documented as of this encounter Care Teams Interdisciplinary Professor Relationship Specialty Start Date End Date Jose Chauhan DO [email or web address] PCP - General 06/07/17 06/15/19 Devika Ceja DO 75 [facility] 1 [place] [address] PCP - General Internal Medicine 06/16/19 12/17/24 Jose Chauhan DO [address] [place] [address] PCP - General Internal Medicine 12/18/24 documented as of this encounter Additional Source Comments The information contained in this document represents components of the legal health record. It is not the complete legal health record.[facility]
--- OUTSIDE RECORDS SUMMARY | 2025-06-18 10:24 | XMS_ITS | Encounter Summary ---
Author Organization [facility] Address [address] [place] [address] [address] [place] [address] Phone Care Team Providers Care Rn Operating Room Name Role Phone Devika Ceja DO Primary Care Provide r Jose Chauhan DO Primary Care Provider [phone] Encounter Details Date Type Department Care Team (Late st Contact Info) Description 06/16/2019 Procedure Pass [address] [place] [address] Social History Tobacco Use Types Packs/Day Years [...] Description 07/03/2025 2:30 PM EST Office Visit [facility] Center for Urogynecology on the [address] [address] Torie Dominguez MD, MS [address] [place] [address], [address] Department of Obstetrics [place] [address] [email or web address] 08/11/2025 3:30 PM EST Office Visit [facility] [address] [place] [address] Unknown, Unknown, Hesham Cramer [address] [place] [address] [email or web address] documented as of this encounter Visit Diagnoses Not on filedocumented in this encounter Additional Health Concerns Infection Onset Date Last Indicated Resolved Time CoV-Exposed Comment:Recent close contact documented in the Travel/Symptom Screening Form 08/01/2023 08/12/2023 1:[address] documented as of this encounter Care Teams Rn Operating Room Relationship Specialty Start Date End Date Devika Ceja DO [address] [place] [phone] PCP - General Internal Medicine 06/16/19 12/17/24 Jose Chauhan DO [address] [place] [address] [place] [address] [email or web address] PCP - General Internal Medicine 12/18/24 documented as of this encounter Additional Source Comments The information contained in this document represents components of the legal health record. It is not the complete legal health record.[facility]
--- OUTSIDE RECORDS SUMMARY | 2025-06-18 10:24 | XMS_ITS | Encounter Summary ---
Author Organization [facility] Address [address] [place] [address] Phone Care Team Providers Care Social Insurance Administrator Name Role Phone Devika Ceja DO Primary Care Provide r Jose Chauhan DO Primary Care Provider [phone] Encounter Details Date Type Department Care Team (Latest Contact Info) Description 05/06/2024 Transcribe Orders [facility] [address] [place] [id number] Erin Bone PA [address] [place] [address] [place] [address] Vitamin D deficiency, unspecified (Primary Dx); Idiopathic [...] Description 07/03/2025 2:30 PM EST Office Visit [facility] Center for Urogynecology on the [address] [address] Torie Dominguez MD, [place] [address], [address] Department of Obstetrics [place] [address] [email or web address] 08/11/2025 3:30 PM EST Office Visit [facility] [address] [place] [address] Unknown, Unknown, Hesham Cramer [address] [place] [address] [email or web address] documented as of this encounter Results * (ABNORMAL) Insulin Level (05/06/2024 8:48 AM EDT) INSULIN 33.4(H) 2.6 - 25.0 uIU/mL [facility] Blood 05/06/2024 8:48 AM EDT 05/06/2024 8:58 AM EDT us Erin JIMÉNEZ LAB BLOOD ORDERABLES Final Result [facility] [address] [place] [address] * 25-OH vitamin D (05/06/2024 8:48 AM EDT) 25 OH VIT D (TOTAL) 31 30 - 60 ng/mL [facility] Blood 05/06/2024 8:48 AM EDT 05/06/2024 8:58 AM EDT Erin JIMÉNEZ LAB BLOOD ORDERABLES Final Result Performing Organization Address City/[facility] [address]/ZIP Co de Phone Number [address] [address] * (ABNORMAL) Parathyroid hormone (PTH) (05/06/2024 8:48 AM EDT) Pathologist [facility] PARATHYROID HORMONE 10(L) 15 - 65 pg/mL [facility] Blood 05/06/2024 8:48 AM EDT 05/06/2024 8:57 AM EDT Erin JIMÉNEZ LAB BLOOD ORDERABLES Final Result Performing Organization Address City/[facility] [address]/[facility] Co de Phone Number [address] [address] * (ABNORMAL) Lipid panel (05/06/2024 8:48 AM EDT) Pathologist [facility] HDL 55 mg/dL [facility] Comment: Interpretation <40 mg/dL: Low HDL cholesterol (major risk factor for CHD) Greater than or equal to 60 mg/dL: High HDL cholesterol ( negative risk factor for CHD) HDL - cholesterol is affected by a number of factors, e.g. smoking, excerise, hormones, sex and age. CHOLESTEROL 211 0 - 240 mg/dL [facility] TRIGLYCERIDES 98 30 - 160 mg/dL [facility] LDL 136(H) 50 - 129 mg/dL [facility] Comment: LDL levels in terms of risk for coronary heart disease: <100 mg/dL: Optimal 100-129 mg/dL: Near or above optimal 130-159 mg/dL: Borderline high 160-189 mg/dL: High >190 mg/dL: Very High CARDIAC RISK RATIO 3.8 3.3 - 4.4 C [facility] Blood 05/06/2024 8:48 AM EDT 05/06/2024 8:57 AM EDT us Erin JIMÉNEZ LAB BLOOD ORDERABLES Final Result [facility] [address] [place] [address] * (ABNORMAL) CBC and differential (05/06/2024 8:48 AM EDT) WBC 11.39(H) 4.00 - 11.00 K/uL [facility] RBC 4.68 3.72 - 5.30 M/uL [facility] HGB 12.6 10.6 - 15.5 g/dL [facility] HCT 39.3 32.0 - 45.0 % [facility] PLT 335 140 - 430 K/uL [facility] MCV 84.0 78.0 - 97.0 fL [facility] MCH 26.9 25.0 - 33.0 pg [facility] MCHC 32.1 32.0 - 36.0 g/dL [facility] RDW 13.5 11.0 - 16.0 % [facility] MPV 12.3 8.4 - 12.8 fl [facility] DIFF [employer] [facility] NEUTS 64.1 43.0 - 75.0 % [facility] LYMPHS 26.4 18.2 - 47.4 % [facility] MONOS 6.3 4.00 - 11.00 % [facility] EOS 2.5 0.0 - 8.0 % [facility] BASOS 0.3 0.0 - 2.0 % [facility] Granulocytes, immature (%) 0.4 0.0 - 0.9 % [facility] ABSOLUTE NEUTS 7.30 1.80 - 7.70 K/uL [facility] ABSOLUTE LYMPHS 3.01 1.00 - 3.10 K/uL [facility] ABSOLUTE MONOS 0.72 0.20 - 0.80 K/uL [facility] ABSOLUTE EOS 0.28 0.00 - 0.80 K/uL [facility] ABSOLUTE BASOS 0.03 0.00 - 0.09 K/uL [facility] Granulocytes, immature 0.05 0.00 - 0.05 K/uL [facility] Blood 05/06/2024 8:48 AM EDT 05/06/2024 8:58 AM EDT us Erin JIMÉNEZ LAB BLOOD ORDERABLES Final Result [facility] [address] [place], [place] [id number] * (ABNORMAL) Comprehensive metabolic panel (05/06/2024 8:48 AM EDT) SODIUM 139 133 - 146 mmol/L [facility] POTASSIUM 3.9 3.3 - 5.1 mmol/L [facility] CHLORIDE 101 96 - 108 mmol/L [facility] CO2 25 21 - 35 mmol/L [facility] BUN 23(H) 6 - 19 mg/dL [facility] CREATININE 0.70 0.5 - 1.5 mg/dL [facility] GLUCOSE 106(H) 70 - 99 mg/dL [facility] ALBUMIN 4.1 3.9 - 4.8 g/dL [facility] TOTAL PROTEIN 7.8 6.5 - 8.0 g/dL [facility] CALCIUM 9.9 8.4 - 10.3 mg/dL [facility] ALKALINE PHOSPHATASE 98 39 - 117 U/L [facility] TOTAL BILIRUBIN 0.4 0.0 - 1.2 mg/dL [facility] AST 18 0 - 37 U/L [facility] ALT 11 0 - 40 U/L [facility] GLOBULIN 3.7 1 - 4.8 g/dL [facility] EGFR 111 >59 mL/min/1.7 3m2 [facility] Comment:Estimated glomerular filtration rate calculated using the CKD-EPI refit equation. ANION GAP 17 10 - 20 mmol/L [facility] Blood 05/06/2024 8:48 AM EDT 05/06/2024 8:58 AM EDT us Erinlayla Brink Smitha PA LAB BLOOD ORDERABLES Final Result Performing Organization Address City/[facility] [address]/ZIP Co de Phone Number [address] [address] * Hemoglobin A1c (05/06/2024 8:48 AM EDT) HEMOGLOBIN A1C 5.7 4.3 - 5.8 % [facility] Blood 05/06/2024 8:48 AM EDT 05/06/2024 8:58 AM EDT [facility] [place] Bone PA LAB BLOOD ORDERABLES Final Result Performing Organization Address City/[facility] [address]/[facility] Co de Phone Number [address] [address] documented in this encounter Visit Diagnoses Diagnosis Vitamin D deficiency, unspecified- Primary Idiopathic hypoparathyroidism Impaired fasting glucose documented in this encounter Care Teams Social Insurance Administrator Relationship Specialty Start Date End Date Devika Ceja DO [address] [place] [id number] PCP - General Internal Medicine 06/16/19 12/17/24 Jose Chauhan DO [address] [place] [id number] [email or web address] PCP - General Internal Medicine 12/18/24 documented as of this encounter Additional Source Comments The information contained in this document represents components of the legal health record. It is not the complete legal health record.[facility]
== END 2025-06-18 09:12 | disposition home or self-care (01) ==
LOC: HO.MAMMO 09:11
PROVIDERS: PCP Internal Medicine; Visit Provider Student in an Organized Health Care Education/Training Program
DX: Z13.820 Encounter for screening for osteoporosis (principal); Z87.311 Personal history of (healed) other pathological fracture
CPT/HCPCS: 77080

== ENCOUNTER → 2025-06-18 09:15 | Outpatient (BNV) | payer MEDICARE, MEDICAID, SELFPAY | PROVIDERS: PCP Internal Medicine; Visit Provider Radiology Diagnostic Radiology | DX: E28.39 Other primary ovarian failure (principal) | CPT/HCPCS: 77080 ==

== ENCOUNTER 2025-06-23 10:14 | Outpatient (AMB) | payer MEDICARE, MEDICAID, SELFPAY ==
--- OUTSIDE RECORDS SUMMARY | 2022-12-18 12:24 | XMS_ITS | Encounter Summary ---
Author Organization Located Within [facility] Address [address] [place] [address] [place] [address] Phone Care Team Providers Care Classified Ad Taker Name Role Phone Devika Ceja DO Primary Care Provide r Encounter Details Date Type Department Care Team (Late st Contact Info) Description 12/18/2022 1:24 PM EDT Hospital Encounter [facility] [address] [place] [address] Cris Richmond CNP [address] [place] [address] [email or web address] Social History Tobacco Use Types Packs/Day Years Used Date Smoking Tobacco: Former Smokeless Tobacco: Never Alcohol Use Standard Drinks/Week Comments Not Currently 0 (1 standard drink = 0.6 oz pur e alcohol) Education Answer Date Recorded Are you interested in more education? Not on sree e 12/15/2022 Are you concerned about learning? Not on file 12/15/2022 No 12/15/2022 No 12/15/2022 Digital Access Answer Date Recorded No 01/09/2023 No 01/09/2023 Reliable internet access at home? Not on file 01/09/2023 Device with a working camera? Not on file Intimate Partner Violence Answer Date R ecorded Are you denied basic needs s uch as food, clothing, or medical care? No 07/21/2023 In the past 12 months have y ou been in a relationship with a person who hurts, threatens, or tries to control you? No 07/21/2023 Are you denied basic needs s uch as food, clothing, or medical care? No 07/21/2023 In the past 12 months have y ou been in a relationship with a person who hurts, threatens, or tries to control you? No 07/21/2023 Comments No Sex and Gender Information Value Date Recorded Sex Assigned at Female 10/20/2020 7:58 AM EST Legal Sex Female 9:19 PM EDT Gender Identity Female 10/20/2020 7:58 AM EST Sexual Orientation Straight 03/16/2023 1: 24 PM EDT documented as of this encounter Functional Status * Calculated C-SSRS Risk Score (Lifetime/Recent) Answer Date of Assessment Author No Risk Indicated 08/01/2023 10:49 AM Eryn Moreira, MASSIMO * [place] Suicide Severity Rating Scale (Screener/Recent Self-Report) Question Answer Date of Assessment Author 1. Wish to be (Past 1 Month) No 023 10:49 AM Eryn Moreira, MASSIMO 2. Non-Specific Active Suici jose Thoughts (Past 1 Month) No 08/01/2023 10:49 AM Nicky Moreira RN 6. Suicidal Behavior (Lifetime) No 3 10:49 AM Eryn Moreira, RN documented as of this encounter Plan of Treatment Upcoming Encounters Date Type Department Care Team (Late st Contact Info) Description 07/03/2025 2:30 PM EST Office Visit [facility] U[facility]cology on the [address] [address] Torie Dominguez MD, MS [address] [place] [address], [address] Department of [place] [address] [email or web address] 08/11/2025 3:30 PM EST Office Visit [facility] [address] [place] [phone] Unknown, Unknown, Hesham Cramer [address] [place] [address] [email or web address] documented as of this encounter Procedures Procedure Name Priority Date/Time Associated Diagnosis Comments XR TOES 2 OR MORE VIEWS (LEFT) Urgent/patient waiting 12/18/2022 1:34 PM EDT Pain of left great toe documented in this encounter Results * XR Toes 2 or More Views (Left) (12/18/2022 1:34 PM EDT) Anatomical Region Laterality Modality Foot Left Computed Radiogr aphy 12/18/2022 1:35 PM EDT Impressions 12/18/2022 2:15 PM EDT No fracture or dislocation. ATTESTATION: Steive Kate as teaching physician, have reviewed the images for this case and if necessary edited the report originally created by Andrew Alatorre. Narrative 12/18/2022 2:15 PM EDT XR TOES 2 OR MORE VIEWS (LEFT) COMPARISON: None. FINDINGS: No fracture. Normal alignment. Normal joint spaces. No soft tissue swelling. Well-corticated ossific density beneath the lateral malleolus likely reflects a remote avulsive fracture versus accessory ossicle. Procedure Note Anthony Allison MD, MPH - 12/18/2022 XR TOES 2 OR MORE VIEWS (LEFT) COMPARISON: None. FINDINGS: No fracture. Normal alignment. Normal joint spaces. No soft tissueswelling. Well-corticated ossific density beneath the lateral malleoluslikely reflects a remote avulsive fracture versus accessory ossicle. IMPRESSION: No fracture or dislocation. ATTESTATION: Stevie Kate as teaching physician, have reviewed theimages for this case and if necessary edited the report originally createdby Andrew Alatorre. us Cris Richmond FINANCIAL AID ADVISOR IMG XR LOWER EXTREMITY Noemi l Result documented in this encounter Visit Diagnoses Not on filedocumented in this encounter Additional Health Concerns Infection Onset Date Last Indicated Resolved Time CoV-Exposed Comment:Recent close contact documented in the Travel/Symptom Screening Form 08/01/2023 08/12/2023 1:[address] documented as of this encounter Care Teams Classified Ad Taker Relationship Specialty Start Date End Date MarcialJose henninggermainjasmina MiguelDO 75 [facility] 1 [place] [phone] PCP - General Internal Medicine 06/16/19 12/17/24 documented as of this encounter Additional Source Comments The information contained in this document represents components of the legal health record. It is not the complete legal health record.Located [facility]
--- OUTSIDE RECORDS SUMMARY | 2024-09-25 16:05 | XMS_ITS | Encounter Summary ---
Author Organization [facility] Address [address] [place] [address] [place] [address] Phone Care Team Providers Care Warehouse Driver Name Role Phone Devika Ceja DO Primary Care Provide r Encounter Details Date Type Department Care Team (Late st Contact Info) Description 09/25/2024 4:05 PM EST Hospital Encounter [facility] [address] [place] [phone] Lauryn Irwin FNP [address] [place] [phone] [email or web address] Social History Tobacco Use Types Packs/Day Years [...] 7:58 AM EST Sexual Orientation Straight 03/16/2023 1 :24 PM EDT documented as of this encounter Plan of Treatment Upcoming Encounters Date Type Department Care Team (Late st Contact Info) Description 07/03/2025 2:30 PM EST Office Visit [facility] Uro[facility]cology on the [address] [address] Torie Dominguez MD, [place] [address] [facility], [address] Department of Obstetrics [place] [address] [email or web address] 08/11/2025 3:30 PM EST Office Visit [facility] [address] [place] [address] Unknown, Unknown, Hesham Cramer [address] [place] [address] [email or web address] documented as of this encounter Procedures Procedure Name Priority Date/Time Associated Diagnosis Comments XR FOOT 3 OR MORE VIEWS (RIGHT) Urgent/patient waiting 09/25/2024 4:14 PM EST Contusion of right foot, initial encounter documented in this encounter Results * XR FOOT 3 OR MORE VIEWS (RIGHT) (09/25/2024 4:14 PM EST) Anatomical Region Laterality Modality Foot Right Computed Radiogr aphy 09/25/2024 4:35 PM EST Impressions 09/25/2024 5:07 PM EST No fracture or dislocation. ATTESTATION: I, Dr. Varun Miller as teaching physician, have reviewed the images for this case and if necessary edited the report originally created by Tayler Pichardo. Narrative 09/25/2024 5:07 PM EST XR FOOT 3 OR MORE VIEWS (RIGHT) Referring clinician's provided indication for this examination in [facility]: Trauma; books/book shelf fell on foot today distally COMPARISON: None available FINDINGS: No fracture. Normal alignment. Normal joint spaces. Plantar calcaneal spur. Procedure Note Varun Juarez MD - 09/25/2024 XR FOOT 3 OR MORE VIEWS (RIGHT) Referring clinician's provided indication for this examination in [facility]:Trauma; books/book shelf fell on foot today distally COMPARISON: None available FINDINGS: No fracture. Normal alignment. Normal joint spaces. Plantar calcanealspur. IMPRESSION: No fracture or dislocation. ATTESTATION: I, Dr. Varun Miller as teaching physician, havereviewed the images for this case and if necessary edited the reportoriginally created by Tayler Pichardo. Lauryn Irwin INFANT AND TODDLER TEACHER IMG XR LOWER EXTREMITY Noemi l Result documented in this encounter Visit Diagnoses Not on filedocumented in this encounter Care Teams Warehouse Driver Relationship Specialty Start Date End Date Devika Ceja DO [address] [facility] [address] [place] [address] PCP - General Internal Medicine 06/16/19 12/17/24 documented as of this encounter Additional Source Comments The information contained in this document represents components of the legal health record. It is not the complete legal health record.[facility]
--- NOTE | 2025-06-23 10:15 | MHC.OFFVIS ---
Vital Signs 06/23/25 10:18 Height 4 ft 11 in Weight 228 lb BMI 46.0 BP 135/85 Blood Pressure Location Lt radial Position Sitting Respiration 16 Pulse 72 Pulse Source Pulse Oximeter Pulse Oximetry (%) 97 Oxygen Delivery Method Room Air Intake Visit Reasons: Pill Count Intake Note: Park comes in today for a pill count to tramadol, patient should have 6 tablets and presents with 9 tablets which she last took today 06/23/25 at 7am. Education Manager Required: No Accompanied by: Self / Same As Patient Allergies Sulfa (Sulfonamide Antibiotics) Allergy (Severe, Verified 06/23/25 10:19) Diarrhea sertraline (From Zoloft) Allergy (Unknown, Verified 06/23/25 10:19) unknown valerian root Allergy (Unknown, Uncoded 06/23/25 10:19) unknown HPI Comments Details: Patient presents today for her pill count. She is supposed to have #9 pills, in her possession has #6 pills. This demonstrates a responsible attitude in regards to the medication regimen. Patient reports adequate analgesia on her regimen of tramadol 50 mg TID prn daily as needed with no noted side effects. Denies any fever, chills, chest pain, shortness of breaths, constipation, nausea, sedation, dizziness, or urinary retention. She continues weight loss journey with HEP, going to gym 2-3 times/week at [employer]. Denies any recent cough, cold, infection, fever or any significant changes in medical history since last office visit. [facility] Medical History Screening for osteoporosis History of fragility fracture Kidney stones Heart palpitations Asthma Morbid obesity with BMI of 50.0-59.9, adult Sacroiliac joint pain Migraines Robbie-Danlos syndrome Lumbar spondylosis Social History Patient Tobacco Use Status: Former Tobacco user Review of Systems Const All systems reviewed & are unremarkable except as noted in HPI and below Physical Exam Vital Signs: Last Vital Signs Pulse 72 06/23/25 10:18 Resp 16 06/23/25 10:18 BP 135/85 06/23/25 10:18 Pulse Ox 97 06/23/25 10:18 Oxygen Delivery Method Room Air 06/23/25 10:18 BMI result Body Mass Index 46.0 General: Appears afebrile. Alert and oriented. Mood and affect appropriate. Follows and participates in conversation appropriately. Respiratory effort is unlabored. No cough. Able to transition from sit to stand unassisted. Ambulates with bilaterally normal heel strike and toe off. General: Yes no CVA tenderness Back/Spine/Pelvis Back: no CVA tenderness Cervical Spine: cervical ROM normal, cervical muscular tenderness and No Cervical spine tenderness Thoracic/Lumbar Spine: thoracic and lumbar spine normal to inspection, pain with thoraco-lumbar ROM, paraspinal muscle tenderness on the right greater than left, thoraco-lumbar ROM limited, No thoracic spinal tenderness and lumbar spinal tenderness (L4-S1) Pelvis: buttock tenderness (R>L) bilaterally Sacroiliac joints: bilaterally tender to palpation Psych Appearance: grossly normal and well kempt Mental Status: mental status grossly normal Speech and movement: Normal speech and movement present and Clear speech present Affect: normal affect Attitude: cooperative Thought process: Normal thought process present Thought content: Normal thought content present, suicidality (none), no hallucinations and No Depressive thoughts present Insight: Good insight present (Psych) Judgement: Good judgement present (Psych) Assessment & Plan Assessment & Plan (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, unspecified Category: Medical (2) Thoracic back pain: Code(s): M54.6 - Pain in thoracic spine Category: Medical (3) Sacroiliac joint pain: Code(s): M53.3 - Sacrococcygeal disorders, not elsewhere classified Category: Medical (4) Lumbar spondylosis: Code(s): M47.816 - Spondylosis without myelopathy or radiculopathy, lumbar region Category: Medical (5) Opioid contract exists: Code(s): Z79.891 - roasterman (current) use of opiate analgesic Category: Medical (6) Morbid obesity with BMI of 45.0-49.9, adult: Code(s): E66.01 - Morbid (severe) obesity due to excess calories; Z68.42 - Body mass index [BMI] 45.0-49.9, adult Category: Medical Plan Patient has shown accountability for her medication regimen and the pill count was accurate. There is no evidence of misuse, abuse or diversion at this time. [facility] reviewed. Prescription sent for Tramadol 50 mg TID prn with an advanced date of 06/25/25 with one refill provided. Patient has Narcan at home. All questions were answered and the patient is in agreement with the plan. Follow up in 2 months for a pill count or sooner as needed. Medications: Refilled tramadol Partial Fill upon patient request. 50 mg PO TID PRN 90 tabs 1RF pain 30 days M47.816 - Spondylosis without myelopathy or radiculopathy, lumbar region, M53.3 - Sacrococcygeal disorders, not elsewhere classified, Q79.60 - Robbie-Danlos syndrome, unspecified Coding Level of Care Code Est Pt Level 4 (58421) Complex EM visit Add On G2211 Diagnoses Robbie-Danlos syndrome Q79.60 Thoracic back pain M54.6 Sacroiliac joint pain M53.3 Lumbar spondylosis M47.816 Opioid contract exists Z79.891 Morbid obesity with BMI of 45.0-49.9, adult E66.01; Z68.42
[2025-06-23 10:18] VITALS: BP 135/85; PULSE 72; RESP 16; O2SAT 97; BMI 46.0
--- OUTSIDE RECORDS SUMMARY | 2025-06-23 12:00 | XMS_ITS | Encounter Summary ---
Author Organization [facility] Address [address] [place] [address] Phone Care Team Providers Care Corporate Technical Recruiter Name Role Phone NikolayJose goodrich Hamilton MEAD Primary Care Provider [phone] Encounter Details Date Type Department Care Team (Late st Contact Info) Description 03/23/2025 Transcribe Orders [address] [address] Erin Bone PA [address] [place] [address] [place] [address] Social History Tobacco Use Types Packs/Day Years [...] Description 07/03/2025 2:30 PM EST Office Visit [facility] Center for Urogynecology on the [address] [address] Torie Dominguez MD, [place] [address] [facility], [address] Department of Obstetric[place] [address] [email or web address] 08/11/2025 3:30 PM EST Office Visit [facility] Cardiovascular Clinic [address] [place] [address] Unknown, Unknown, Hesham Cramer [address] [place] [address] [email or web address] documented as of this encounter Visit Diagnoses Not on filedocumented in this encounter Care Teams Corporate Technical Recruiter Relationship Specialty Start Date End Date Jose Chauhan DO [address] [address] [email or web address] PCP - General Internal Medicine 12/18/24 documented as of this encounter Additional Source Comments The information contained in this document represents components of the legal health record. It is not the complete legal health record.[facility]
--- OUTSIDE RECORDS SUMMARY | 2025-06-23 12:01 | XMS_ITS | Encounter Summary ---
Author Organization [facility] Address [address] [place] [address] [place] [address] Phone Care Team Providers Care Supervisor Sewer Maintenance Name Role Phone Jose Chauhan DO Primary Care Provider [phone] Devika Ceja DO Primary Care Provide r Jose Chauhan DO Primary Care Provider Encounter Details Date Type Department Care Team (Latest Contact Info) Description 01/08/2019 Transcribe Orders [address] [address] Audelia Stevenson, ALEXI [address] Juan Luis[address] [place] [address] [email or web address] Elevated C-reactive protein (CRP) (Primary Dx); [...] Description 07/03/2025 2:30 PM EST Office Visit [facility] Center for Urogynecology on the [place] [address] [place] [address] 2nd [place] [address] Torie Dominguez MD, [place] 500 [facility], [address] Department of Obst[place] [address] [email or web address] 08/11/2025 3:30 PM EST Office Visit [facility] Clinic 70 [place] [address] Unknown, Unknown, Hesham Cramer 75 [place] [address] [email or web address] documented as of this encounter Results * Babesia serology (01/08/2019 10:52 AM EDT) Babesia microti IgG <1:64 <1:64 titer [facility] Comment: (NOTE) ADDITIONAL INFORMATION This test was developed using an analyte specific reagent. Its performance characteristics were determined by [facility] in a manner consistent with CLIA requirements. This test has not been cleared or approved by the U.S. Food and Drug Administration. Blood (Blood) 01/08/2019 10: 52 AM EDT 01/08/2019 11:11 AM EDT November Elva TRUONG MICROBIOLOGY - GENERAL ORDER MALDONADO Final Result [facility] [address] [place] [address] * Q fever antibody (01/08/2019 10:52 AM EDT) QFVR PHASE I IGG <1:16 <1:16 [facility]PATH [address] DR GODOY PHASE II IGG <1:16 <1:16 [facility] QFVR PHASE I IGM <1:16 <1:16 [facility]/PATH SUPERIOR MALONEY QFVR PHASE II IGM <1:16 <1:16 [facility]/PATH RINER Q FEVER INTERP SEE NOTE [facility]/PATH RINER Comment: (NOTE) Negative. No antibody detected. This [...] ORDER MALDONADO Final Result Performing Organization Address [facility] de Phone Number [facility]/[place] [address] * Ehrlichia chaffeensis (HME) antibody (01/08/2019 10:52 AM EDT) Pathologist [facility] EHRLICHIA CHAFF (HME) AB, IGG <1:64 <1:64 TITER [facility] SU[facility] MALONEY Comment: (NOTE) ADDITIONAL INFORMATION This test was developed using an analyte specific reagent. Its performance characteristics were determined by [facility] in a manner consistent with CLIA requirements. This test has not been cleared or approved by the U.S. Food and Drug Administration. Blood 01/08/2019 10:5 2 AM EDT 01/08/2019 11:11 AM EDT Audelia Elva TRUONG LAB BLOOD ORDERABLES Final R esult Performing Organization Address [facility] de Phone Number [facility] [place] [address] * Lyme screen with reflex to Western blot, blood (01/08/2019 10:52 AM EDT) Pathologist [facility] Lyme AB IgG Negative Negative [facility] Lyme AB IgM Negative Negative [facility] Blood 01/08/2019 10:5 2 AM EDT 01/08/2019 11:11 AM EDT November Elva PA-C LAB BLOOD BKR ORDERABLES Fin al Result [address] [address] * Comprehensive metabolic panel (01/08/2019 10:52 AM EDT) SODIUM 139 133 - 146 mmol/L [facility] POTASSIUM 3.9 3.3 - 5.1 mmol/L [facility] CHLORIDE 101 96 - 108 mmol/L [facility] CO2 25 21 - 35 mmol/L [facility] BUN 17 6 - 19 mg/dL [facility] CREATININE 0.70 0.5 - 1.5 mg/dL [facility] GLUCOSE 93 70 - 99 mg/dL [facility] ALBUMIN 3.9 3.9 - 4.8 g/dL [facility] TOTAL PROTEIN 7.5 6.5 - 8.0 g/dL [facility] CALCIUM 9.4 8.4 - 10.3 mg/dL [facility] ALKALINE PHOSPHATASE 79 39 - 117 U/L [facility] TOTAL BILIRUBIN 0.3 0.0 - 1.2 mg/dL [facility] AST 16 0 - 37 U/L [facility] ALT 11 0 - 40 U/L [facility] GLOBULIN 3.6 1 - 4.8 g/dL [facility] EGFR 111 >59 mL/min/1.7 3m2 [facility] Comment:If patient is black, multiply result by 1.159. Estimated glomerular filtration rate calculated using the CKD-EPI equation. ANION GAP 17 10 - 20 mmol/L [facility] Blood 01/08/2019 10:5 2 AM EDT 01/08/2019 11:11 AM EDT November Elva PA-C LAB BLOOD BKR ORDERABLES Fin al Result [address] [place] [address] * (ABNORMAL) CBC and differential (01/08/2019 10:52 AM EDT) WBC 8.65 3.40 - 11.20 K/uL [facility] RBC 4.45 3.80 - 4.80 M/uL [facility] HGB 11.8(L) 12.0 - 15.0 g/dL [facility] HCT 36.1 36.0 - 46.0 % [facility] PLT 384 130 - 400 K/uL [facility] MCV 81.1 79.0 - 98.0 fL [facility] MCH 26.5(L) 27.0 - 34.8 pg [facility] MCHC 32.7 31.5 - 36.0 g/dL [facility] RDW 13.9 10.8 - 14.6 % [facility] MPV 11.7 9.4 - 12.4 fl [facility] NRBC 0.00 0.00 /100 WBCs [facility] ABSOLUTE NRBC 0.00 0.00 K/uL [facility] DIFF METHOD Auto [facility] NEUTS 68.0 45.30 - 77.70 % [facility] LYMPHS 22.9 12.30 - 39.70 % [facility] MONOS 7.5 4.10 - 12.80 % [facility] EOS 0.9 0 - 7.2 % [facility] BASOS 0.5 0 - 2.80 % [facility] Granulocytes, immature (%) 0.2 0.0 - 0.9 % [facility] ABSOLUTE NEUTS 5.88 1.40 - 7.70 K/uL [facility] ABSOLUTE LYMPHS 1.98 0.60 - 3.20 K/uL [facility] ABSOLUTE MONOS 0.65(H) 0.11 - 0.59 K/uL [facility] ABSOLUTE EOS 0.08 0.01 - 0.50 K/uL [facility] ABSOLUTE BASOS 0.04 0.00 - 0.08 K/uL [facility] Granulocytes, immature 0.02 0.00 - 0.05 K/uL [facility] Blood 01/08/2019 10:5 2 AM EDT 01/08/2019 11:11 AM EDT [facility] LAB BLOOD BKR ORDERABLES Fin al Result Performing Organization Address [facility] Co de Phone Number [address] [address] * (ABNORMAL) Sedimentation rate (ESR) (01/08/2019 10:52 AM EDT) ESR 26(H) 0 - 20 mm/h [facility] Blood 01/08/2019 10:5 2 AM EDT 01/08/2019 11:11 AM EDT [facility] BLOOD BKR ORDERABLES Fin al Result Performing Organization Address [facility] Phone Number [address] [address] * (ABNORMAL) C-reactive protein, high sensitivity (01/08/2019 10:52 AM EDT) CRP, HIGH SENSITIVITY 36.1(H) 0.0 - 5.0 mg/L [facility] Comment: Interpretation: hsCRP level (mg/L) Relative Risk <1.0 Low 1.0 - 3.0 Average >3.0 High Neonates (0-3 weeks): 0.1 - 4.1 mg/L Children (2 months - 15 years): 0.1 - 2.8 mg/L Blood 01/08/2019 10:5 2 AM EDT 01/08/2019 11:11 AM EDT [facility] LAB BLOOD BKR ORDERABLES Fin al Result Performing Organization Address [facility] de Phone Number [address] [address] documented in this encounter Visit Diagnoses Diagnosis Elevated C-reactive protein (CRP)- Primary Nonvenomous insect bite of face without infection, initial encounter documented in this encounter Additional Health Concerns Infection Onset Date Last Indicated Resolved Time CoV-Exposed Comment:Recent close contact documented in the Travel/Symptom Screening Form 08/01/2023 08/12/2023 1:[address] documented as of this encounter Care Teams Supervisor Sewer Maintenance Relationship Specialty Start Date End Date Jose Chauhan DO PCP - General 06/07/17 06/15/19 Devika Ceja DO 75 [facility] 1 [place] [address] PCP - General Internal Medicine 06/16/19 12/17/24 Jose Chauhna DO 179 [facility] [place] [address] PCP - General Internal Medicine 12/18/24 documented as of this encounter Additional Source Comments The information contained in this document represents components of the legal health record. It is not the complete legal health record.[facility]
--- OUTSIDE RECORDS SUMMARY | 2025-06-23 12:02 | XMS_ITS | Clinical Summary ---
Author Organization [facility] Address [address] [place] [address] Phone Care Team Providers Care Candy Maker Name Role Phone Nikolayjoleen Jose Villasenor DO Primary Care Provider [phone] Allergies Active Allergy Reactions Criticality Noted Date [...] operative case but she will see an evidence specialist. Left knee pain 06/26/2019 Contusion of [...] will continue to be treated by the ground water contractor with elevation and an ankle support she [...] reagent. Its performance characteristics were determined by [facility] in a manner consistent with CLIA requirements. [...] reagent. Its performance characteristics were determined by [facility] in a manner consistent with CLIA requirements. [...] INFORMATION Method: Flow Cytometry Performing Laboratory CLIA# [id number] C REACTIVE PROTEIN 12/25/2018 32.5* 0.0 - [...] reduction and if necessary consultation with a adjusto writer operator, and appropriate structured home exercise program [...] reagent. Its performance characteristics were determined by [facility] in a manner consistent with CLIA requirements. [...] reagent. Its performance characteristics were determined by [facility] in a manner consistent with CLIA requirements. [...] INFORMATION Method: Flow Cytometry Performing Laboratory CLIA# [id number] C REACTIVE PROTEIN 12/25/2018 32.5* 0.0 - [...] completed her consultation and testing with the protective signal installer at [facility] and I am waiting to [...] of this 28-minute visit was spent in [id number] conversation with the patient going over her [...] this 28 minute visit was spent in [id number] conversation with the patient going over risks and benefits of CBD and current medications. He'll also need for cardiovascular exercise. Discussed her persistent but improved pain from osteoarthritis and impingement in the right shoulder and her sacroiliac dysfunction and her osteoarthritic right knee. Questions were answered. She is referred to a protective signal installer who is also evaluating her daughter and [...] this 29 minute visit was spent in [id number] conversation with the patient going over pain [...] recently and also by a well-respected local news clerk. She seems to see some association between [...] Department Care Team Description 03/23/2025 Transcribe Orders [address] [address] Erin Bone PA from Last 3 Months Immunizations Immunization Administration [...] 07/21/2023 Are you denied basic needs [facility] as food, clothing, or medical care? No [...] Description 07/03/2025 2:30 PM EST Office Visit [facility] Center for Urogynecology on the [address] [address] Torie Dominguez MD, MS 500 [facility], [address] Department of Obstetrics [place] [address] [email or web address] 08/11/2025 3:30 PM EST Office Visit [facility] Cardiovascular Clinic 70 [place] [address] Unknown, Unknown, Hesham Cramer 75 [place] [address] [email or web address] Health Maintenance Due Date Last Done Comments [...] Procedure Name Priority Date/Time Associated Diagnosis Comments HEPATITIS C ANTIBODY, QUALITATIVE Routine 01/30/2019 11:49 AM EDT Secondary osteoarthritis of right shoulder Undifferentiated connective tissue disease from Last 3 Months or Most Recently Relevant to Health Maintenance Results * Hepatitis C antibody, qualitative (01/30/2019 11:49 AM EDT) HCV Negative Negative [facility] Comment: This is a screening test and should be confirmed with molecular testing Blood 01/30/2019 11:4 9 AM EDT 01/30/2019 11:55 AM EDT us Dirk Boo MD LAB BLOOD BKR ORDERABLES F inal Result [facility] 30 [place] [address] from Last 3 Months or Most Recently Relevant to Health Maintenance Insurance [address] [place] [address] MEDICARE PART A & [place] A [place] B HEALTH MEDICARE PART A & [place] MEDICARE PART A & [place] [address] MEDICARE PART A & [place] PART A & B [facility] Care Teams Candy Maker Relationship Specialty Start Date End Date Jose Chauhan DO 179 [place] [address] PCP - General Internal Medicine 12/18/24 Additional Source Comments The information contained in this document represents components of the legal health record. It is not the complete legal health record.[facility]
--- OUTSIDE RECORDS SUMMARY | 2025-06-23 12:02 | XMS_ITS | Encounter Summary ---
Author Organization [facility] Address [address] [place] [address] Phone Care Team Providers Care Clinical Psychologist Private Practice Name Role Phone Jose Chauhan DO Primary Care Provider [phone] Devika Ceja DO Primary Care Provide r Jose Chauhan DO Primary Care Provider [phone] Reason for Referral * - Closed Specialty Diagnoses / Procedures Referred By Luh mccarthy Referred To Contact Diagnoses Atypical chest pain Procedures Stress Test Exercise Audelia Stevenson PA-C Phone: tel: fax: mailto: Referral ID Status Reason Start Date Expiration Date Visits Re quested Visits Authorized [id number] Closed 02/06/2019 02/06/2020 1 1 Encounter Details Date Type Department Care Team (Late st Contact Info) Description 02/06/2019 Ancillary Orders Virtual Department 30 [place] [address] Audelia Stevenson PA-C [address] Juan Luis. [address] [place] [address] [email or web address] Atypical chest pain Social History Tobacco [...] Description 07/03/2025 2:30 PM EST Office Visit [facility] Center for Urogynecology on the [address] [place] [address] Torie Dominguez MD, [place] 500 [facility], [address] Department of Obstetrics [place] [address] [email or web address] 08/11/2025 3:30 PM EST Office Visit [facility] Cardiovascular Clinic 70 [place] [address] Unknown, Unknown, Hesham Cramer 75 [place] [address] [email or web address] documented as of this encounter Results * Stress Test Exercise (02/17/2019 11:14 AM EDT) Max BP Systolic 150 mmHg [facility] Max HR 173 BPM [facility] Resting HR 92 BPM [facility] Resting BP Systolic 142 mmHg [facility] Resting BP Diastolic 88 mmHg [facility] Peak METS 10.1 METS [facility] Peak HR 173 BPM [facility] Anatomical Region Laterality Modality Heart Other [...] documented as of this encounter Care Teams Clinical Psychologist Private Practice Relationship Specialty Start Date End Date Jose Chauhan DO PCP - General 06/07/17 06/15/19 Devika Ceja DO [address] [place] [phone] PCP - General Internal Medicine 06/16/19 12/17/24 Jose Chauhan DO 179 [place] [address] [email or web address] PCP - General Internal Medicine 12/18/24 documented as of this encounter Additional Source Comments The information contained in this document represents components of the legal health record. It is not the complete legal health record.[facility]
--- OUTSIDE RECORDS SUMMARY | 2025-06-23 12:02 | XMS_ITS | Encounter Summary ---
Author Organization [facility] Address [address] [place] [address] Phone Care Team Providers Care Loaders Name Role Phone Jose Chauhan DO Primary Care Provider Devika Ceja DO Primary Care Provide r Jose Chauhan DO Primary Care Provider [phone] Encounter Details Date Type Department Care Team (Late st Contact Info) Description 12/25/2018 Procedure Pass [facility], [address] [address] Social History Tobacco Use Types Packs/Day Years [...] Description 07/03/2025 2:30 PM EST Office Visit [facility] Center for Urogynecology on the [place] [address] [facility] 2nd [place] [address] Torie Dominguez MD, MS 500 [facility], [address] Department of Obstetrics [place] [address] [email or web address] 08/11/2025 3:30 PM EST Office Visit [facility] Cardiovascular Clinic 70 [place] [address] Unknown, Unknown, Hesham Cramer 75 [place] [address] [email or web address] documented as of this encounter Visit Diagnoses Not on filedocumented in this encounter Additional Health Concerns Infection Onset Date Last Indicated Resolved Time CoV-Exposed Comment:Recent close contact documented in the Travel/Symptom Screening Form 08/01/2023 08/12/2023 1:[address] documented as of this encounter Care Teams Loaders Relationship Specialty Start Date End Date Jose Chauhan DO [email or web address] PCP - General 06/07/17 06/15/19 Devika Ceja DO [address] [address] PCP - General Internal Medicine 06/16/19 12/17/24 Jose Chauhan DO 179 [facility] [place] [address] [email or web address] PCP - General Internal Medicine 12/18/24 documented as of this encounter Additional Source Comments The information contained in this document represents components of the legal health record. It is not the complete legal health record.[facility]
--- OUTSIDE RECORDS SUMMARY | 2025-06-23 12:02 | XMS_ITS | Encounter Summary ---
Author Organization [facility] Address [address] [place] [address] Phone Care Team Providers Care Collections Analyst Name Role Phone Jose Chauhan DO Primary Care Provider [phone] Devika Ceja DO Primary Care Provide r Jose Chauhan DO Primary Care Provider [phone] Encounter Details Date Type Department Care Team (Latest Contact Info) Description 01/08/2019 Transcribe Orders Virtual Department 30 [place] [address] Audelia Stevenson PA-C [address] Juan Luis. [address] [place] [address] [email or web address] Dysphagia, unspecified type (Primary Dx) [...] Description 07/03/2025 2:30 PM EST Office Visit [facility] Center for Urogynecology on the [place] 1681 [facility] 2nd [place] [address] Torie Dominguez MD, MS 500 [facility], [address] Department of Obstetrics [place] [address] [email or web address] 08/11/2025 3:30 PM EST Office Visit [facility] Cardiovascular Clinic 70 [place] [address] Unknown, Unknown, Hesham Cramer 75 [place] [address] [email or web address] documented as of this encounter Visit Diagnoses Diagnosis Dysphagia, unspecified type- Primary documented in this encounter Additional Health Concerns Infection Onset Date Last Indicated Resolved Time CoV-Exposed Comment:Recent close contact documented in the Travel/Symptom Screening Form 08/01/2023 08/12/2023 1:[address] documented as of this encounter Care Teams Collections Analyst Relationship Specialty Start Date End Date Jose Chauhan DO PCP - General 06/07/17 06/15/19 Devika Ceja DO [address] [place] [address] Juan Luis 1 [place] [address] PCP - General Internal Medicine 06/16/19 12/17/24 Jose Chauhan DO 179 [facility] [place] [address] PCP - General Internal Medicine 12/18/24 documented as of this encounter Additional Source Comments The information contained in this document represents components of the legal health record. It is not the complete legal health record.[facility]
--- OUTSIDE RECORDS SUMMARY | 2025-06-23 12:02 | XMS_ITS | Encounter Summary ---
Author Organization [facility] Address [address] [place] [address] [place] [address] Phone Care Team Providers Care Supply Chain Systems Manager Name Role Phone Jose Chauhan DO Primary Care Provider Devika Ceja DO Primary Care Provide r Jose Chauhan DO Primary Care Provider [phone] Encounter Details Date Type Department Care Team (Latest Contact Info) Description 02/21/2019 Transcribe Orders [facility] 30 [place] [address] Audelia Stevenson PA-C [address] Juan Luis[address] [place] [address] [email or web address] Elevated C-reactive protein (CRP) (Primary Dx) Social [...] Description 07/03/2025 2:30 PM EST Office Visit [facility] Center for Urogynecology on the [place] [address] [place] [address] 2nd [place] [address] Torie Dominguez MD, MS 500 [facility], [address] Department of Obstetrics [place] [address] [email or web address] 08/11/2025 3:30 PM EST Office Visit [facility] Cardiovascular Clinic 70 [place] [address] Unknown, Unknown, Hesham Cramer 75 [place] [address] [email or web address] documented as of this encounter Results * (ABNORMAL) C-reactive protein, high sensitivity (02/21/2019 3:36 PM EDT) CRP, HIGH SENSITIVITY 34.7(H) 0.0 - 5.0 mg/L [facility] Comment: Interpretation: hsCRP level (mg/L) Relative Risk <1.0 Low 1.0 - 3.0 Average >3.0 High Neonates (0-3 weeks): 0.1 - 4.1 mg/L Children (2 months - 15 years): 0.1 - 2.8 mg/L Blood 02/21/2019 3:36 PM EDT 02/21/2019 3:38 PM EDT November Elva TRUONG LAB BLOOD BKR ORDERABLES Fin al Result [facility] 30 [place] [address] documented in this encounter Visit Diagnoses Diagnosis Elevated C-reactive protein (CRP)- Primary documented in this encounter Additional Health Concerns Infection Onset Date Last Indicated Resolved Time CoV-Exposed Comment:Recent close contact documented in the Travel/Symptom Screening Form 08/01/2023 08/12/2023 1:[address] documented as of this encounter Care Teams Supply Chain Systems Manager Relationship Specialty Start Date End Date Jose Chauhan DO [email or web address] PCP - General 06/07/17 06/15/19 Devika Ceja DO 75 [facility] 1 [place] [address] PCP - General Internal Medicine 06/16/19 12/17/24 Jose Chauhan DO [address] [place] [address] PCP - General Internal Medicine 12/18/24 documented as of this encounter Additional Source Comments The information contained in this document represents components of the legal health record. It is not the complete legal health record.[facility]
--- OUTSIDE RECORDS SUMMARY | 2025-06-23 12:02 | XMS_ITS | Encounter Summary ---
Author Organization [facility] Address [address] [place] [address] Phone Care Team Providers Care Lean Manufacturing Leader Name Role Phone Jose Chauhan DO Primary Care Provider [phone] Devika Ceja DO Primary Care Provide r Nikolayjoleen Jose Hamilton DO Primary Care Provider [phone] Encounter Details Date Type Department Care Team (Latest Contact Info) Description 01/17/2019 Transcribe Orders Virtual Department 30 [place] [address] Audelia Stevenson PA-C [address] Juan [address]. [address] [place] [address] [email or web address] Enlarged lymph node (Primary Dx) [...] Description 07/03/2025 2:30 PM EST Office Visit [facility] Center for Urogynecology on the [place] [address] [facility] 2nd [place] [address] Torie Dominguez MD, MS [address] [facility], [address] Department of Obstetrics [place] [address] [email or web address] 08/11/2025 3:30 PM EST Office Visit [facility] Cardiovascular Clinic [address] [place] [address] Unknown, Unknown, Hesham Cramer [address] [place] [address] [email or web address] documented as of this encounter Results [...] documented as of this encounter Care Teams Lean Manufacturing Leader Relationship Specialty Start Date End Date Jose Chauhan DO [email or web address] PCP - General 06/07/17 06/15/19 Devika Ceja DO [address] [facility] 1 [place] [address] PCP - General Internal Medicine 06/16/19 12/17/24 Jose Chauhan DO [address] [facility] [place] [address] [email or web address] PCP - General Internal Medicine 12/18/24 documented as of this encounter Additional Source Comments The information contained in this document represents components of the legal health record. It is not the complete legal health record.[facility]
--- OUTSIDE RECORDS SUMMARY | 2025-06-23 12:02 | XMS_ITS | Encounter Summary ---
Author Organization [facility] Address [address] [place] [address] [address] [place] [address] Phone Care Team Providers Care Director Of Consumer Affairs Name Role Phone Devika Ceja DO Primary Care Provide r Jose Chauhan DO Primary Care Provider [phone] Encounter Details Date Type Department Care Team (Late st Contact Info) Description 06/16/2019 Procedure Pass [address] [place] [address] Social History Tobacco Use Types Packs/Day Years [...] Description 07/03/2025 2:30 PM EST Office Visit [facility] Center for Urogynecology on the [address] [address] Torie Dominguez MD, MS [address] [place] [address], [address] Department of Obstetrics [place] [address] [email or web address] 08/11/2025 3:30 PM EST Office Visit [facility] [address] [place] [address] Unknown, Unknown, Hesham Cramer [address] [place] [address] [email or web address] documented as of this encounter Visit Diagnoses Not on filedocumented in this encounter Additional Health Concerns Infection Onset Date Last Indicated Resolved Time CoV-Exposed Comment:Recent close contact documented in the Travel/Symptom Screening Form 08/01/2023 08/12/2023 1:[address] documented as of this encounter Care Teams Director Of Consumer Affairs Relationship Specialty Start Date End Date Devika Ceja DO [address] [place] [phone] PCP - General Internal Medicine 06/16/19 12/17/24 Jose Chauhan DO [address] [place] [address] [place] [address] [email or web address] PCP - General Internal Medicine 12/18/24 documented as of this encounter Additional Source Comments The information contained in this document represents components of the legal health record. It is not the complete legal health record.[facility]
--- OUTSIDE RECORDS SUMMARY | 2025-06-23 12:04 | XMS_ITS | Encounter Summary ---
Author Organization [facility] Address [address] [place] [address] Phone Care Team Providers Care Garment Sewer Hand Name Role Phone Devika Ceja DO Primary Care Provide r Jose Chauhan DO Primary Care Provider [phone] Encounter Details Date Type Department Care Team (Latest Contact Info) Description 05/06/2024 Transcribe Orders [facility] Phle[address] [address] Erin Bone PA [address] [place] [address] [place] [address] Vitamin D deficiency, unspecified (Primary Dx); Idiopathic [...] Description 07/03/2025 2:30 PM EST Office Visit [facility] Center for Urogynecology on the [address] [address] Torie Dominguez MD, MS [address] [facility], [address] Department of Obstetrics [place] [address] [email or web address] 08/11/2025 3:30 PM EST Office Visit [facility] Cardiovascular Clinic [address] [place] [address] Unknown, Unknown, Hesham Cramer [address] [place] [address] [email or web address] documented as of this encounter Results * (ABNORMAL) Insulin Level (05/06/2024 8:48 AM EDT) INSULIN 33.4(H) 2.6 - 25.0 uIU/mL [facility] Blood 05/06/2024 8:48 AM EDT 05/06/2024 8:58 AM EDT us Erin JIMÉNEZ LAB BLOOD BKR ORDERABLES Fi nal Result [address] [address] * 25-OH vitamin D (05/06/2024 8:48 AM EDT) 25 [place] VIT D (TOTAL) 31 30 - 60 ng/mL [facility] Blood 05/06/2024 8:48 AM EDT 05/06/2024 8:58 AM EDT Erin Cuba Bone PA LAB BLOOD BKR ORDERABLES Fi nal Result Performing Organization Address City/[facility]/ZIP Co de Phone Number [address] [address] * (ABNORMAL) Parathyroid hormone (PTH) (05/06/2024 8:48 AM EDT) PARATHYROID HORMONE 10(L) 15 - 65 pg/mL [facility] Blood 05/06/2024 8:48 AM EDT 05/06/2024 8:57 AM EDT Erin Cuba JIMÉNEZ LAB BLOOD BKR ORDERABLES Fi nal Result Performing Organization Address [facility] Co de Phone Number [address] [address] * (ABNORMAL) Lipid panel (05/06/2024 8:48 AM EDT) HDL 55 mg/dL [facility] Comment: Interpretation <40 mg/dL: Low HDL cholesterol (major risk factor for CHD) Greater than or equal to 60 mg/dL: High HDL cholesterol ( negative risk factor for CHD) HDL - cholesterol is affected by a number of factors, e.g. smoking, excerise, hormones, sex and age. CHOLESTEROL 211 0 - 240 mg/dL [facility] TRIGLYCERIDES 98 30 - 160 mg/dL [facility] LDL 136(H) 50 - 129 mg/dL [facility] Comment: LDL levels in terms of risk for coronary heart disease: <100 mg/dL: Optimal 100-129 mg/dL: Near or above optimal 130-159 mg/dL: Borderline high 160-189 mg/dL: High >190 mg/dL: Very High CARDIAC RISK RATIO 3.8 3.3 - 4.4 C [facility] Blood 05/06/2024 8:48 AM EDT 05/06/2024 8:57 AM EDT us Erin JIMÉNEZ LAB BLOOD BKR ORDERABLES Fi nal Result [facility] [address] [place], [place] [id number] * (ABNORMAL) CBC and differential (05/06/2024 8:48 AM EDT) WBC 11.39(H) 4.00 - 11.00 K/uL [facility] RBC 4.68 3.72 - 5.30 M/uL [facility] HGB 12.6 10.6 - 15.5 g/dL [facility] HCT 39.3 32.0 - 45.0 % [facility] PLT 335 140 - 430 K/uL [facility] MCV 84.0 78.0 - 97.0 fL [facility] MCH 26.9 25.0 - 33.0 pg [facility] MCHC 32.1 32.0 - 36.0 g/dL [facility] RDW 13.5 11.0 - 16.0 % [facility] MPV 12.3 8.4 - 12.8 [facility] DIFF METHOD Auto [facility] NEUTS 64.1 43.0 - 75.0 % [facility] LYMPHS 26.4 18.2 - 47.4 % [facility] MONOS 6.3 4.00 - 11.00 % [facility] EOS 2.5 0.0 - 8.0 % [facility] BASOS 0.3 0.0 - 2.0 % [facility] Granulocytes, immature (%) 0.4 0.0 - 0.9 % [facility] ABSOLUTE NEUTS 7.30 1.80 - 7.70 K/uL [facility] ABSOLUTE LYMPHS 3.01 1.00 - 3.10 K/uL [facility] ABSOLUTE MONOS 0.72 0.20 - 0.80 K/uL [facility] ABSOLUTE EOS 0.28 0.00 - 0.80 K/uL [facility] ABSOLUTE BASOS 0.03 0.00 - 0.09 K/uL [facility] Granulocytes, immature 0.05 0.00 - 0.05 K/uL [facility] Blood 05/06/2024 8:48 AM EDT 05/06/2024 8:58 AM EDT us Erin JIMÉNEZ LAB BLOOD BKR ORDERABLES Fi nal Result [address] [address] * (ABNORMAL) Comprehensive metabolic panel (05/06/2024 8:48 AM EDT) SODIUM 139 133 - 146 mmol/L [facility] POTASSIUM 3.9 3.3 - 5.1 mmol/L [facility] CHLORIDE 101 96 - 108 mmol/L [facility] CO2 25 21 - 35 mmol/L [facility] BUN 23(H) 6 - 19 mg/dL [facility] CREATININE 0.70 0.5 - 1.5 mg/dL [facility] GLUCOSE 106(H) 70 - 99 mg/dL [facility] ALBUMIN 4.1 3.9 - 4.8 g/dL [facility] TOTAL PROTEIN 7.8 6.5 - 8.0 g/dL [facility] CALCIUM 9.9 8.4 - 10.3 mg/dL [facility] ALKALINE PHOSPHATASE 98 39 - 117 U/L [facility] TOTAL BILIRUBIN 0.4 0.0 - 1.2 mg/dL [facility] AST 18 0 - 37 U/L [facility] ALT 11 0 - 40 U/L [facility] GLOBULIN 3.7 1 - 4.8 g/dL [facility] EGFR 111 >59 mL/min/1.7 3m2 [facility] Comment:Estimated glomerular filtration rate calculated using the CKD-EPI refit equation. ANION GAP 17 10 - 20 mmol/L [facility] Blood 05/06/2024 8:48 AM EDT 05/06/2024 8:58 AM EDT us Erin Hurddaniela PA LAB BLOOD BKR ORDERABLES Fi nal Result Performing Organization Address City/[facility]/ZIP Co de Phone Number [address] [address] * Hemoglobin A1c (05/06/2024 8:48 AM EDT) HEMOGLOBIN A1C 5.7 4.3 - 5.8 % [facility] Blood 05/06/2024 8:48 AM EDT 05/06/2024 8:58 AM EDT [facility] [place] Hurddaniela PA LAB BLOOD BKR ORDERABLES Fi nal Result Performing Organization Address City/[facility] Co de Phone Number [address] [address] documented in this encounter Visit Diagnoses Diagnosis Vitamin D deficiency, unspecified- Primary Idiopathic hypoparathyroidism Impaired fasting glucose documented in this encounter Care Teams Garment Sewer Hand Relationship Specialty Start Date End Date Devika Ceja DO [address] [place] [phone] PCP - General Internal Medicine 06/16/19 12/17/24 Jose Chauhan DO [address] [place] [address] PCP - General Internal Medicine 12/18/24 documented as of this encounter Additional Source Comments The information contained in this document represents components of the legal health record. It is not the complete legal health record.[facility]
== END 2025-06-23 10:31 | disposition home or self-care (01) ==
LOC: HO.PMC 10:14
PROVIDERS: PCP Internal Medicine; Visit Provider Nurse Practitioner Family
DX: Q79.60 Ehlers-Danlos syndrome, unspecified (principal); M54.6 Pain in thoracic spine; M53.3 Sacrococcygeal disorders, not elsewhere classified; M47.816 Spondylosis without myelopathy or radiculopathy, lumbar region; Z79.891 Long term (current) use of opiate analgesic; E66.01 Morbid (severe) obesity due to excess calories; Z68.42 Body mass index [BMI] 45.0-49.9, adult
CPT/HCPCS: 99214; G2211

== ENCOUNTER → 2025-06-23 10:14 | Outpatient (BNVA) | payer MEDICARE, MEDICAID, SELFPAY | PROVIDERS: PCP Internal Medicine; Visit Provider Nurse Practitioner Family | DX: M54.6 Pain in thoracic spine (principal); M53.3 Sacrococcygeal disorders, not elsewhere classified; M47.816 Spondylosis without myelopathy or radiculopathy, lumbar region; Q79.60 Ehlers-Danlos syndrome, unspecified; Z79.891 Long term (current) use of opiate analgesic; E66.01 Morbid (severe) obesity due to excess calories; Z68.42 Body mass index [BMI] 45.0-49.9, adult | CPT/HCPCS: 99212 ==